=== PATIENT | male | born 1930 | race Caucasian/White ===

== ENCOUNTER 2016-12-07 16:10 | Inpatient (IN) | payer MEDICARE, OTHER ==
--- NOTE | 2016-12-07 17:56 | PCM.HP ---
[id number] Diagnosis/Problem Admission Diagnosis/Problem Pneumonia Source of Information: Patient, Family History Limitations: Reports: No limitations - History of Present Illness Initial Comments - Free Text/Narative: 85-year-old male with shortness of breath cough and generalized weakness for a period of 10 days, insidious onset, initially thought it would go away but symptoms got worse in the last 2 days. They included decreased appetite necessitating a clinic visit to PCP today. Chest x-ray done revealed bilateral pneumonia. Cough is productive of yellow-brown sputum. He also feels short of breath on ambulation but denies any chest pain, fever or chills. He has no nausea,vomiting or abdominal pain. Has a previous h/o of pneumonia, around and 2014. 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 Further,he has stable coronary disease, and a history of triple AAA repair. Denies Pain Score (Numeric/FACES): 0 - Related Data Allergies/Adverse Reactions: Allergies Allergy/AdvReac Type Severity Reaction Status Date / Time amoxicillin [Amoxicillin] Allergy Cannot Verified 10/24/13 11:14 Remember Home Medications: Home Meds ALPRAZolam [Xanax] 0.125 mg PO BEDTIME 10/24/13 [History] Budesonide/Formoterol [Symbicort 160-4.5 MCG] 2 inh IH BID 10/24/13 [History] Fexofenadine HCl [Sangeeta] 180 mg PO DAILY 10/24/13 [History] Flunisolide [Nasalide Nasal [place]] 2 spray KARLY DAILY PRN 10/24/13 [History] Levothyroxine 150 mcg PO DAILY 10/24/13 [History] Metoprolol Succinate [Toprol XL] 50 mg PO BIDMEALS PRN 10/24/13 [History] Mycophenolate Mofetil [Cellcept] 500 mg PO BID 10/24/13 [History] Omeprazole 20 mg PO DAILY 10/24/13 [History] Simvastatin [Zocor] 5 mg PO BEDTIME 10/24/13 [History] Terazosin [Hytrin] 10 mg PO BEDTIME 10/24/13 [History] Albuterol Sulfate [Proair Respiclick] 2 inh IH Q4HR PRN 02/02/15 [History] Ascorbate Calcium [Vitamin C] 500 mg PO DAILY 02/02/15 [History] Cholecalciferol (Vitamin D3) [Vitamin D3] 2,000 units PO DAILY 02/02/15 [History ] Diltiazem HCl [Diltiazem ER] 120 mg PO DAILY 02/02/15 [History] Furosemide [Lasix] 20 mg PO BID 02/02/15 [History] Krill Oil 500 mg PO DAILY 02/02/15 [History] L.acidoph,Paracasei, B.lactis [Probiotic] 1 each PO DAILY 02/02/15 [History] Lisinopril [Prinivil] 40 mg PO DAILY PRN 02/02/15 [History] Multivitamin [Multi-Vitamin Daily] 1 each PO DAILY 02/02/15 [History] Warfarin [Coumadin] 2.5 mg PO SUTUWETHFRSA 12/07/16 [History] Warfarin [Coumadin] 5 mg PO MO 12/07/16 [History] Past Medical History Cardiovascular History: Reports: Aneurysm, Bypass, CAD Respiratory History: Reports: COPD Other Respiratory History: hx of cancer of the lung Musculoskeletal History: Reports: Arthritis, Back pain, chronic Other Neuro History: history of myathenia gravis Social & Family History - Tobacco Use Smoking Status *Q: Never Smoker Years of Tobacco use: 40 Used Tobacco, but Quit: Yes Month Tobacco Last Used: 1991 Second Hand Smoke Exposure: No - Alcohol Use Days Per Week of Alcohol Use: 7 Number of Drinks Per Day: 1 Total Drinks Per Week: 7 - Recreational Drug Use Recreational Drug Use: No H&P Review of Systems - Review of Systems: Review Of Systems: ROS reveals no pertinent complaints other than HPI. Exam - Exam Exam: See Below - Vital Signs Weight: 67.268 kg - Exam General: alert, oriented, 4 HEENT: PERRLA, Hearing intact, Mucosa moist & pink, Nares patent, Normal nasal septum, Posterior pharynx clear, Conjunctiva clear, EOMI, EACs clear, TMs clear Neck: supple, trachea midline, 2 Lungs: Crackles, Rales Cardiovascular: regular rate, regular rhythm Abdomen: normal bowel sounds, soft (Male) Exam: Deferred Rectal (Males) Exam: Deferred Back Exam: normal inspection, full range of motion, NT Extremities: 3, normal inspection, 10 Skin: warm, dry, intact Neurological: cranial nerves intact, reflexes equal bilateral Neuro Extensive - Mental Status: alert, oriented x3, normal mood/affect, normal cognition Neuro Extensive - Motor, Sensory, Reflexes: CN II-XII intact, normal gait, normal reflexes Psychiatric: alert, normal affect, normal mood - Patient Data Result Diagrams: 12/08/16 06:10 12/08/16 06:10 Imaging Impressions last 24 hrs: I reviewed CXR at [facility]-shows bilateral infiltrates. *Q Meaningful Use (ADM) - VTE *Q VTE Criteria *Q: - Stroke *Q Stroke Criteria *Q: - AMI *Q AMI Criteria *Q: - Problem List (1) CAP (community acquired pneumonia) SNOMED Code(s): 525393941 ICD Code: J18.9 - PNEUMONIA, UNSPECIFIED ORGANISM Status: Acute Current Visit: Yes (2) Leukocytosis SNOMED Code(s): 292234508, 960440292 ICD Code: D72.829 - ELEVATED WHITE BLOOD CELL COUNT, UNSPECIFIED Status: Acute Current Visit: Yes Qualifiers: Leukocytosis type: unspecified Qualified Code(s): D72.829 - Elevated white blood cell count, unspecified (3) H/O aortic aneurysm repair SNOMED Code(s): 510280283 ICD Code: Z98.890 - OTHER SPECIFIED POSTPROCEDURAL STATES; Z86.79 - PERSONAL HISTORY OF OTHER DISEASES OF THE CIRCULATORY SYSTEM Status: Chronic Current Visit: Yes (4) HTN (hypertension) SNOMED Code(s): 69228821 ICD Code: I10 - ESSENTIAL (PRIMARY) HYPERTENSION Status: Chronic Current Visit: Yes Qualifiers: Hypertension type: essential hypertension Qualified Code(s): I10 - Essential (primary) hypertension (5) H/O TIA (transient ischemic attack) and stroke SNOMED Code(s): 057559539 ICD Code: Z86.73 - PRSNL HX OF TIA (TIA), AND CEREB INFRC W/O RESID DEFICITS Status: Chronic Current Visit: Yes (6) Ocular myasthenia SNOMED Code(s): 093626980 ICD Code: G70.00 - MYASTHENIA GRAVIS WITHOUT (ACUTE) EXACERBATION Status: Chronic Current Visit: Yes (7) COPD (chronic obstructive pulmonary disease) SNOMED Code(s): 49616619 ICD Code: J44.9 - CHRONIC OBSTRUCTIVE PULMONARY DISEASE, UNSPECIFIED Status : Acute Current Visit: Yes Qualifiers: COPD type: chronic bronchitis (8) Hypothyroid SNOMED Code(s): 04124907 ICD Code: E03.9 - HYPOTHYROIDISM, UNSPECIFIED Status: Chronic Current Visit: Yes Qualifiers: Hypothyroidism type: unspecified Qualified Code(s): E03.9 - Hypothyroidism , unspecified (9) CAD (coronary artery disease) SNOMED Code(s): 26864600 ICD Code: I25.10 - ATHSCL HEART DISEASE OF [place] CORONARY ARTERY W/O ANG PCTRS Status: Chronic Current Visit: Yes Qualifiers: [place] vs. transplanted heart: [place] heart (10) History of lobectomy of lung SNOMED Code(s): 849253002 ICD Code: Z90.2 - ACQUIRED ABSENCE OF LUNG [PART OF] Status: Chronic Current Visit: Yes Problem List Initiated/Reviewed/Updated: Yes Orders Last 24hrs: Active Orders 24 hr Category Date Time Status Admission Status [Patient Status] [ADT] Routine ADT 12/07/16 16:52 Active CULTURE BLOOD [BC] Routine Lab 12/07/16 17:00 Ordered CULTURE BLOOD [BC] Routine Lab 12/07/16 17:15 Ordered CULTURE ROUTINE + SMEAR [RM] Routine Lab 12/07/16 17:00 Uncollected Sodium Chloride 0.9% [Saline Flush] Med 12/07/16 16:18 Active 10 ml FLUSH ASDIRECTED PRN cefTRIAXone [Rocephin] 1 gm Med 12/07/16 18:00 Active Sodium Chloride 0.9% [Normal Saline] 50 ml IV ONETIME Saline Lock Insert [OM.PC] Routine Oth 12/07/16 16:18 Ordered Medication Orders Ceftriaxone Sodium 1 gm/ (Sodium Chloride) 50 mls @ 200 mls/hr IV ONETIME ONE Stop: 12/07/16 18:14 Sodium Chloride (Saline Flush) 10 ml FLUSH ASDIRECTED PRN PRN Reason: Keep Vein Open Assessment/Plan Comment:: Admit patient for IV antibiotics. We will start with Rocephin and azithromycin , and replace IV fluids as well. Given duo nebs as needed for shortness of breath. The rest of his home medications be continued as previously prescribed.
[2016-12-07] MEDS ORDERED: cefTRIAXone 1 GM in Sodium Chloride 0.9% 50 ML IV ONE (18:00)
[2016-12-07] MEDS ORDERED: Azithromycin 500 MG in Sodium Chloride 0.9% 250 ML IV SCH (18:00)
[2016-12-07] MEDS ORDERED: amLODIPine 10 MG Tab PO PRN (18:01)
[2016-12-07] MEDS: Lactated Ringers 1,000 ML IV SCH (19:40)
[2016-12-07] MEDS ORDERED: Azithromycin 500 MG AdvVial IV ONE (19:50)
[2016-12-07] MEDS ORDERED: ALPRAZolam 0.25 MG Tab PO SCH (21:00)
[2016-12-07] MEDS: Albuterol/Ipratropium 3.0-0.5 MG/3 ML Neb Soln NEB SCH (21:32)
[2016-12-07] MEDS ORDERED: ALPRAZolam 0.25 MG Tab ONE (21:41)
[2016-12-07] MEDS: Terazosin 5 MG Cap PO SCH (21:51)
[2016-12-07] MEDS: Aspirin/Dipyridamole 200-25 MG Cap.ER PO SCH (21:52)
[2016-12-07] MEDS: Budesonide/Formoterol 16-4.5 MCG/Puff 10.2 GM Inhaler INH SCH (21:52)
[2016-12-07] MEDS: ALPRAZolam 0.25 MG Tab PO SCH (22:00)
[2016-12-07] MEDS: Acetaminophen 325 MG Tab PO PRN (22:01)
[2016-12-07] MEDS ORDERED: Enoxaparin 30 MG/0.3 ML Syringe SUBCUT SCH (23:00)
[2016-12-08] MEDS: Albuterol/Ipratropium 3.0-0.5 MG/3 ML Neb Soln NEB SCH ×5 (03:25→20:51)
[2016-12-08] MEDS: Lactated Ringers 1,000 ML IV SCH (05:26)
[2016-12-08] MEDS ORDERED: amLODIPine 5 MG Tab PO PRN (07:35)
[2016-12-08] MEDS ORDERED: Enoxaparin 30 MG/0.3 ML Syringe SUBCUT SCH (08:00)
[2016-12-08] MEDS: Omeprazole 20 MG Cap.CR PO SCH (08:35)
[2016-12-08] MEDS: Levothyroxine 150 MCG Tab PO SCH (08:35)
[2016-12-08] MEDS: Metoprolol Succinate 50 MG Tab.ER PO SCH ×2 (08:37→17:30)
[2016-12-08] MEDS: Aspirin/Dipyridamole 200-25 MG Cap.ER PO SCH ×2 (08:38→20:50)
[2016-12-08] MEDS: Diltiazem 120 MG Cap.CD PO SCH (08:40)
[2016-12-08] MEDS: Lactobacillus Rhamnosus GG (Probiotic) Cap PO SCH (08:40)
[2016-12-08] MEDS: Clopidogrel 75 MG Tab PO SCH (08:41)
[2016-12-08] MEDS: Cholecalciferol (Vitamin D3) 1,000 Unit Tab PO SCH (08:42)
[2016-12-08] MEDS: Ascorbic Acid 500 MG Tab PO SCH (08:42)
[2016-12-08] MEDS: Multivitamin Tab PO SCH (08:42)
[2016-12-08] MEDS: Formoterol/Mometasone 200-5 MCG 8.8 GM Inhaler IH SCH ×2 (08:43→20:51)
[2016-12-08] MEDS: Budesonide/Formoterol 16-4.5 MCG/Puff 10.2 GM Inhaler INH SCH (08:45)
[2016-12-08] MEDS ORDERED: Non-Formulary Medication 1 Each (Krill Oil [Krill Oil] 500 MG) PO SCH (09:00)
[2016-12-08] MEDS: methylPREDNISolone Sodium Succinate 125 MG/2 ML SDV IVPUSH SCH ×2 (09:36→17:24)
--- NOTE | 2016-12-08 09:50 | PN ---
DATE SEEN: 12/08/2016 CHIEF COMPLAINT: Pneumonia. HISTORY OF PRESENT ILLNESS: This 85-year-old male, admitted for community- acquired pneumonia. Overnight, he still feels short of breath and wheezy. He has been using nebulized albuterol with improvement. He has had no more fever. He complains of decreased appetite but denies any chest pain. He has a history of hypertension, COPD, CAD previously stable. REVIEW OF SYSTEMS: All other systems unremarkable. ALLERGIES: Amoxicillin. PHYSICAL EXAMINATION: VITAL SIGNS: He is afebrile. Pulse is 116. Blood pressure is normal. Oxygenation 95%. EARS, NOSE, AND THROAT: Negative. NECK: No JVD. CARDIOVASCULAR: Regular rate and rhythm. EXTREMITIES: No edema. LUNGS: Crackles on the bases at left and right. LABORATORY DATA: White cell count is 12.8, hemoglobin 9.8. IMPRESSION: 1. Community-acquired pneumonia, mild normocytic anemia. 2. Stable hypertension. 3. History of chronic obstructive pulmonary disease with an exacerbation. 4. History of lobectomy of the lung. PLAN: Start Solu-Medrol 125 mg IV. Repeat CBC in the morning. Hep-Lock IV. Continue Rocephin and azithromycin. /[id number] GRACIA/KENROY
[2016-12-08] MEDS: MYCOPHENOLATE MOFETIL 500 MG PO SCH ×2 (13:15→20:53)
[2016-12-08] MEDS: Warfarin 2.5 MG Tab PO SCH (15:34)
[2016-12-08] MEDS: cefTRIAXone 1 GM in Sodium Chloride 0.9% 50 ML IV SCH (17:27)
[2016-12-08] MEDS: Sodium Chloride 0.9% 10 ML Syringe FLUSH PRN (19:42)
[2016-12-08] MEDS: Azithromycin 500 MG in Sodium Chloride 0.9% 250 ML IV SCH (19:44)
[2016-12-08] MEDS: Terazosin 5 MG Cap PO SCH (20:52)
[2016-12-08] MEDS: Simvastatin 10 MG Tab PO SCH (20:54)
[2016-12-08] MEDS: ALPRAZolam 0.25 MG Tab PO SCH (21:01)
[2016-12-08] MEDS: Acetaminophen 325 MG Tab PO PRN (21:07)
[2016-12-09] MEDS: Sodium Chloride 0.9% 10 ML Syringe FLUSH PRN ×4 (01:15→19:43)
[2016-12-09] MEDS: methylPREDNISolone Sodium Succinate 125 MG/2 ML SDV IVPUSH SCH ×3 (01:16→16:29)
[2016-12-09] MEDS: Albuterol/Ipratropium 3.0-0.5 MG/3 ML Neb Soln NEB PRN (01:20)
[2016-12-09] MEDS: Acetaminophen 325 MG Tab PO PRN ×2 (01:23→21:18)
[2016-12-09] MEDS: Albuterol/Ipratropium 3.0-0.5 MG/3 ML Neb Soln NEB SCH ×4 (06:15→21:16)
[2016-12-09] MEDS: Formoterol/Mometasone 200-5 MCG 8.8 GM Inhaler IH SCH ×2 (06:16→21:15)
[2016-12-09] MEDS: Levothyroxine 150 MCG Tab PO SCH (07:30)
[2016-12-09] MEDS: Metoprolol Succinate 50 MG Tab.ER PO SCH ×2 (07:30→17:39)
[2016-12-09] MEDS: Omeprazole 20 MG Cap.CR PO SCH (07:31)
[2016-12-09] MEDS: Aspirin/Dipyridamole 200-25 MG Cap.ER PO SCH ×2 (08:40→21:15)
[2016-12-09] MEDS: Diltiazem 120 MG Cap.CD PO SCH (08:51)
[2016-12-09] MEDS: MYCOPHENOLATE MOFETIL 500 MG PO SCH ×2 (08:51→21:16)
[2016-12-09] MEDS: Lactobacillus Rhamnosus GG (Probiotic) Cap PO SCH (08:51)
[2016-12-09] MEDS: Clopidogrel 75 MG Tab PO SCH (08:52)
[2016-12-09] MEDS: Multivitamin Tab PO SCH (08:53)
[2016-12-09] MEDS: Cholecalciferol (Vitamin D3) 1,000 Unit Tab PO SCH (08:53)
[2016-12-09] MEDS: Ascorbic Acid 500 MG Tab PO SCH (08:55)
[2016-12-09] MEDS ORDERED: Iopamidol 755 Mg/ML 100 ML Bottle IV ONE (09:55)
[2016-12-09] MEDS: Warfarin 2.5 MG Tab PO SCH (16:29)
[2016-12-09] MEDS: cefTRIAXone 1 GM in Sodium Chloride 0.9% 50 ML IV SCH (17:37)
[2016-12-09] MEDS: Azithromycin 500 MG in Sodium Chloride 0.9% 250 ML IV SCH (19:49)
[2016-12-09] MEDS: Terazosin 5 MG Cap PO SCH (21:16)
[2016-12-09] MEDS: Simvastatin 10 MG Tab PO SCH (21:17)
[2016-12-09] MEDS: ALPRAZolam 0.25 MG Tab PO PRN (21:17)
[2016-12-10] MEDS: methylPREDNISolone Sodium Succinate 125 MG/2 ML SDV IVPUSH SCH ×3 (00:52→16:55)
[2016-12-10] MEDS: Sodium Chloride 0.9% 10 ML Syringe FLUSH PRN ×2 (00:53→08:42)
[2016-12-10] MEDS: Acetaminophen 325 MG Tab PO PRN ×2 (01:28→19:41)
[2016-12-10] MEDS: Albuterol/Ipratropium 3.0-0.5 MG/3 ML Neb Soln NEB PRN (01:29)
[2016-12-10] MEDS ORDERED: ALPRAZolam 0.25 MG Tab PO ONE (02:55)
[2016-12-10] MEDS: ALPRAZolam 0.25 MG Tab PO PRN (03:02)
[2016-12-10] MEDS: Formoterol/Mometasone 200-5 MCG 8.8 GM Inhaler IH SCH ×3 (06:20→21:10)
[2016-12-10] MEDS: Albuterol/Ipratropium 3.0-0.5 MG/3 ML Neb Soln NEB SCH ×4 (06:20→21:10)
--- NOTE | 2016-12-10 07:25 | PN ---
DATE SEEN: 12/07/2016 REASON FOR VISIT: Pneumonia. HISTORY OF PRESENT ILLNESS: An 85-year-old male, who has been admitted for pneumonia. He complains of shortness of breath especially in the mornings, wheezing, and cough that is productive. He denies any pain. He also has been noted to have abdominal distention for which his is worried about. REVIEW OF SYSTEMS: No chest pain. No fever has been reported. No leg swelling. PAST MEDICAL HISTORY: COPD, CAD, AAA, hypertension, ocular myasthenia, history of TIAs. PHYSICAL EXAMINATION: VITAL SIGNS: Upon exam, his blood pressure today is 139/84, oxygenation 95% on room air, and pulse is 81. HEENT: Head, normal size. NECK: Supple. CHEST: Coarse crepitations bilaterally. CARDIOVASCULAR: Normal. EXTREMITIES: No edema. MENTAL STATUS: Alert. Mild anxiety was noted. LABORATORY DATA: This morning, white cell count is normal. Hemoglobin is 10.7. INR is 2.9. IMPRESSION: My final impression is: 1. Community-acquired pneumonia. 2. Chronic obstructive pulmonary disease exacerbation. 3. History of aortobifemoral bypass. 4. History of coronary artery disease. 5. History of transient ischemic attack. 6. Anemia, normocytic. PLAN: I will obtain a CT of the chest, abdomen, and pelvis. Continue with Solu- Medrol, SVNs, and antibiotics; also include that the patient can take some Xanax for anxiety as needed. /[id number] GRACIA/KENROY
[2016-12-10] MEDS: Omeprazole 20 MG Cap.CR PO SCH (08:27)
[2016-12-10] MEDS: Levothyroxine 150 MCG Tab PO SCH (08:27)
[2016-12-10] MEDS: Metoprolol Succinate 50 MG Tab.ER PO SCH ×2 (08:28→17:03)
[2016-12-10] MEDS: Aspirin/Dipyridamole 200-25 MG Cap.ER PO SCH ×2 (08:28→21:10)
[2016-12-10] MEDS: Diltiazem 120 MG Cap.CD PO SCH (08:29)
[2016-12-10] MEDS: MYCOPHENOLATE MOFETIL 500 MG PO SCH ×2 (08:30→21:11)
[2016-12-10] MEDS: Lactobacillus Rhamnosus GG (Probiotic) Cap PO SCH (08:30)
[2016-12-10] MEDS: Cholecalciferol (Vitamin D3) 1,000 Unit Tab PO SCH (08:31)
[2016-12-10] MEDS: Ascorbic Acid 500 MG Tab PO SCH (08:31)
[2016-12-10] MEDS: Multivitamin Tab PO SCH (08:31)
[2016-12-10] MEDS: Clopidogrel 75 MG Tab PO SCH (08:31)
--- NOTE | 2016-12-10 10:01 | PN ---
DATE SEEN: 12/10/2016 CHIEF COMPLAINT: Shortness of breath. HISTORY OF PRESENT ILLNESS: An 85-year-old male, who has pneumonia, severe COPD, and has been here for 3 days. He feels better this morning except shortness of breath on mild ambulation. CT of the chest that was done yesterday revealed possibility of nodules suggestive of malignancy in the lung on the right and possibly pulmonary edema also was noted. His legs have been noted to be swollen overnight. REVIEW OF SYSTEMS: No fever. No chest pain. No headaches. SOCIAL HISTORY: Does not smoke. Quit years ago. MEDICATIONS: Reviewed. ALLERGIES: Reviewed. PHYSICAL EXAMINATION: VITAL SIGNS: Blood pressure is 124/67 and pulse is 85. ENT: Negative. NECK: No JVD. CARDIOVASCULAR: Normal. RESPIRATORY: Rhonchi on both lung beyer. EXTREMITIES: 1 to 2+ peripheral edema. LABORATORY DATA: No labs were done today. INR was 5.04. FINAL IMPRESSION: 1. Community-acquired pneumonia. 2. Severe emphysema. 3. Lung nodule suggestive of malignancy. 4. Congestive heart failure. PLAN: 1. To add Spiriva HandiHaler. Continue with SVNs as needed. 2. I will continue Rocephin and azithromycin and Solu-Medrol. 3. Hold Coumadin. I did talk to him about why he is taking it but he is not sure entirely, it is possible because they thought he had a TIA in [place] years ago. He has also had an aortobifemoral graft but I am not certain if the Coumadin needs to be continued. My plan is also to see that he follows up with his PCP at the [facility] and possibly have a referral to Pulmonology for further workup of the nodules in the lungs which is suggestive of malignancy. /[id number] GRACIA/KENROY
[2016-12-10] MEDS: Furosemide 20 MG Tab PO SCH ×2 (10:45→13:52)
[2016-12-10] MEDS: Tiotropium Inhaler 18 MCG Inhalation Powder Cap Kit of 5 INH SCH (10:46)
[2016-12-10] MEDS ORDERED: Warfarin 5 MG Tab PO SCH (16:00)
[2016-12-10] MEDS: cefTRIAXone 1 GM in Sodium Chloride 0.9% 50 ML IV SCH (17:03)
[2016-12-10] MEDS ORDERED: Sodium Chloride 0.9% 250 ML IV SCH (17:15)
[2016-12-10] MEDS: Azithromycin 500 MG in Sodium Chloride 0.9% 250 ML IV SCH (19:42)
[2016-12-10] MEDS: Terazosin 5 MG Cap PO SCH (21:10)
[2016-12-10] MEDS: Simvastatin 10 MG Tab PO SCH (21:11)
[2016-12-11] MEDS: Sodium Chloride 0.9% 10 ML Syringe FLUSH PRN ×3 (01:10→19:56)
[2016-12-11] MEDS: methylPREDNISolone Sodium Succinate 125 MG/2 ML SDV IVPUSH SCH ×2 (01:10→08:16)
[2016-12-11] MEDS: Acetaminophen 325 MG Tab PO PRN ×2 (01:13→20:40)
[2016-12-11] MEDS: Albuterol/Ipratropium 3.0-0.5 MG/3 ML Neb Soln NEB PRN (04:49)
[2016-12-11] MEDS: Albuterol/Ipratropium 3.0-0.5 MG/3 ML Neb Soln NEB SCH ×4 (07:05→20:39)
[2016-12-11] MEDS: Formoterol/Mometasone 200-5 MCG 8.8 GM Inhaler IH SCH ×2 (08:04→20:39)
[2016-12-11] MEDS: Levothyroxine 150 MCG Tab PO SCH (08:05)
[2016-12-11] MEDS: Furosemide 20 MG Tab PO SCH ×2 (08:05→14:02)
[2016-12-11] MEDS: Omeprazole 20 MG Cap.CR PO SCH (08:05)
[2016-12-11] MEDS: Metoprolol Succinate 50 MG Tab.ER PO SCH ×2 (08:06→19:06)
[2016-12-11] MEDS: Aspirin/Dipyridamole 200-25 MG Cap.ER PO SCH ×2 (08:07→20:39)
[2016-12-11] MEDS: Lactobacillus Rhamnosus GG (Probiotic) Cap PO SCH (08:09)
[2016-12-11] MEDS: Diltiazem 120 MG Cap.CD PO SCH (08:09)
[2016-12-11] MEDS: MYCOPHENOLATE MOFETIL 500 MG PO SCH ×2 (08:10→20:40)
[2016-12-11] MEDS: Tiotropium Inhaler 18 MCG Inhalation Powder Cap Kit of 5 INH SCH (08:12)
[2016-12-11] MEDS: Multivitamin Tab PO SCH (08:14)
[2016-12-11] MEDS: Ascorbic Acid 500 MG Tab PO SCH (08:15)
[2016-12-11] MEDS: Cholecalciferol (Vitamin D3) 1,000 Unit Tab PO SCH (08:42)
--- NOTE | 2016-12-11 11:04 | PN ---
DATE SEEN: 12/11/2016 CHIEF COMPLAINT: Cough. HISTORY OF PRESENT ILLNESS: This is an 85-year-old male, admitted for pneumonia, which has improved; COPD, that is end-stage; and CHF, for which he has now improved on Lasix. He had put out 875 of urine here last night. He still has some wheezing, but otherwise, no chest pain. His leg swelling has improved. SOCIAL HISTORY: Quit smoking years ago. REVIEW OF SYSTEMS: No fever or headache. MEDICATIONS: Reviewed. PHYSICAL EXAMINATION: GENERAL: He is not in distress. VITAL SIGNS: Oxygenation 94% on room air. Blood pressure is normal. He is afebrile. EARS, NOSE, and THROAT: Negative. NECK: Supple. CHEST: wheezing and diminished breath sounds. EXTREMITIES: 1 to 2+ peripheral edema. LABORATORY DATA: None except INR was 6.6. IMPRESSION: 1. Community-acquired pneumonia. 2. Chronic obstructive pulmonary disease. 3. Congestive heart failure. 4. High INR. 5. History of malignancy, possible recurrence. PLAN: 1. Change Solu-Medrol to oral prednisone. 2. Discontinue azithromycin and Plavix. 3. Discontinue Coumadin. 4. Possible discharge tomorrow. /[id number] GRACIA/KENROY
[2016-12-11] MEDS: cefTRIAXone 1 GM in Sodium Chloride 0.9% 50 ML IV SCH (19:04)
[2016-12-11] MEDS: predniSONE 20 MG Tab PO SCH (19:06)
[2016-12-11] MEDS: Terazosin 5 MG Cap PO SCH (20:39)
[2016-12-11] MEDS: Simvastatin 10 MG Tab PO SCH (20:40)
[2016-12-11] MEDS: ALPRAZolam 0.25 MG Tab PO PRN (20:41)
[2016-12-12] MEDS: Acetaminophen 325 MG Tab PO PRN (04:38)
[2016-12-12] MEDS: Albuterol/Ipratropium 3.0-0.5 MG/3 ML Neb Soln NEB PRN (04:38)
[2016-12-12] MEDS: Albuterol/Ipratropium 3.0-0.5 MG/3 ML Neb Soln NEB SCH ×2 (07:03→10:41)
[2016-12-12] MEDS: Furosemide 20 MG Tab PO SCH ×2 (08:25→13:35)
[2016-12-12] MEDS: Omeprazole 20 MG Cap.CR PO SCH (08:25)
[2016-12-12] MEDS: Metoprolol Succinate 50 MG Tab.ER PO SCH (08:25)
[2016-12-12] MEDS: Levothyroxine 150 MCG Tab PO SCH (08:25)
[2016-12-12] MEDS: Formoterol/Mometasone 200-5 MCG 8.8 GM Inhaler IH SCH (08:25)
[2016-12-12] MEDS: predniSONE 20 MG Tab PO SCH (08:25)
[2016-12-12] MEDS: Aspirin/Dipyridamole 200-25 MG Cap.ER PO SCH (08:26)
[2016-12-12] MEDS: Cholecalciferol (Vitamin D3) 1,000 Unit Tab PO SCH (08:26)
[2016-12-12] MEDS: Lactobacillus Rhamnosus GG (Probiotic) Cap PO SCH (08:26)
[2016-12-12] MEDS: MYCOPHENOLATE MOFETIL 500 MG PO SCH (08:26)
[2016-12-12] MEDS: Multivitamin Tab PO SCH (08:26)
[2016-12-12] MEDS: Tiotropium Inhaler 18 MCG Inhalation Powder Cap Kit of 5 INH SCH (08:26)
[2016-12-12] MEDS: Ascorbic Acid 500 MG Tab PO SCH (08:26)
--- NOTE | 2016-12-12 12:07 | PN ---
DATE SEEN: 12/12/2016 REASON FOR VISIT: Pneumonia. HISTORY OF PRESENT ILLNESS: This is an 86-year-old male, who has had pneumonia, COPD, CHF. He has improved, complains of minimal cough and shortness of breath on mild exertion. He would like to go home today. REVIEW OF SYSTEMS: No chest pain. No fever. Cough is improved. SOCIAL HISTORY: He lives at home with , sedentary lifestyle. MEDICATIONS: Reviewed. PHYSICAL EXAMINATION: GENERAL: Nontoxic in appearance. VITAL SIGNS: Afebrile and normotensive. ENT: Negative. MENTAL STATUS: Alert. EXTREMITIES: Mild to moderate edema. LABORATORY DATA: Lab studies this morning, INR is still 4.39, neutrophils 91%, hemoglobin 11.1. IMPRESSION: 1. Community-acquired pneumonia. 2. Severe emphysema. 3. Congestive heart failure. 4. History of atrial fibrillation. 5. Possible malignancy, right lung. PLAN: My plan is to discharge the patient home on antibiotics orally and I chose to go with Omnicef. I will also continue the Lasix at home. I discussed at length that I will also add Spiriva; however, I will hold off on any anticoagulation until his INR comes back down to below 1.5. I discussed that they might need to go on a new anticoagulation agent, e.g. Eliquis or Xarelto. I discussed this with and daughter at bedside, and we will discharge him home today. /[id number] GRACIA/KENROY
[2016-12-12 13:34] VITALS: BP 129/67
--- NOTE | 2016-12-13 02:01 | DISCH ---
DISCHARGE DATE: 12/12/2016 REASON FOR ADMISSION: Community-acquired pneumonia. DISCHARGE DIAGNOSES: 1. Community-acquired pneumonia. 2. Severe chronic obstructive pulmonary disease. 3. Congestive heart failure. 4. Atrial fibrillation. 5. History of possible malignancy on the right lung. 6. Hypertension. 7. Generalized anxiety. CONSULTATIONS: None. BRIEF HISTORY AND HOSPITAL COURSE: An 86-year-old male, who was admitted for cough, fever, decreased appetite, and diagnosis of pneumonia. He was started on Rocephin and azithromycin. He also has old COPD, which was treated with DuoNeb and Solu-Medrol. CT done two days later revealed possible malignancy of the right lung. He also had some pulmonary edema. Lasix was started and he did very well. I discontinued Coumadin because of high INR. His Coumadin was there because of persistent atrial fibrillation. On discharge, I discussed discontinuation of Coumadin possibly in favor of new anticoagulation agent Xarelto. I also started him on Spiriva in the hospital. DISCHARGE MEDICATIONS: Alprazolam 0.125 mg p.o. b.i.d. p.r.n., albuterol and ipratropium 3 mL nebulizer every 4 hours p.r.n., Lasix 20 mg b.i.d., levothyroxine 150 mg daily, metoprolol 50 mg b.i.d., mometasone and formoterol one puff inhaled b.i.d., one multivitamin a day, omeprazole 10 mg daily, Zocor 5 mg a day, terazosin 10 mg daily, Spiriva 1 inhalation daily, prednisone 10 mg b.i.d., and Xarelto 10 mg a day starting next week once he had an INR. FOLLOWUP: I made a referral to the [facility] in [facility]. I also asked him to see Dr. Oakley on Saturday for an INR check. I spent more than 35 minutes in discharge of the patient. /[id number] GRACIA/KENROY
== END 2016-12-12 13:50 | disposition home or self-care (01) | DRG 194 ==
LOC: FB.MS 16:47
PROVIDERS: ADMIT Family Medicine; ATTEND Family Medicine
DX: J18.9 Pneumonia, unspecified organism (principal); J44.1 Chronic obstructive pulmonary disease with (acute) exacerbation; C34.91 Malignant neoplasm of unspecified part of right bronchus or lung; I10 Essential (primary) hypertension; I25.10 Atherosclerotic heart disease of native coronary artery without angina pectoris; G70.00 Myasthenia gravis without (acute) exacerbation; M54.9 Dorsalgia, unspecified; G89.29 Other chronic pain; M19.90 Unspecified osteoarthritis, unspecified site; Z90.2 Acquired absence of lung [part of]; Z85.118 Personal history of other malignant neoplasm of bronchus and lung; Z95.1 Presence of aortocoronary bypass graft; Z87.891 Personal history of nicotine dependence; Z86.73 Personal history of transient ischemic attack (TIA), and cerebral infarction without residual deficits; Z88.1 Allergy status to other antibiotic agents; Z79.01 Long term (current) use of anticoagulants; Z79.52 Long term (current) use of systemic steroids; E03.9 Hypothyroidism, unspecified; G70.89 Other specified myoneural disorders; D64.9 Anemia, unspecified; I50.9 Heart failure, unspecified; F41.9 Anxiety disorder, unspecified; R91.8 Other nonspecific abnormal finding of lung field
CPT/HCPCS: 36415; 71260; 74177; 80048; 80053; 83880; 84443; 85025; 85610; 87040; 94150; 94640-76; A9270-GY; J0456; J0696; J1650; J2930; J7050; J7120; J7620; Q9967

== ENCOUNTER 2017-04-11 14:37 | Inpatient (IN) | payer MEDICARE, OTHER ==
[2017-04-11] MEDS ORDERED: Ondansetron 4 MG Tab.DIS PO PRN (15:09)
[2017-04-11] MEDS: Sodium Chloride 0.9% 10 ML Syringe FLUSH PRN ×4 (16:09→21:57)
[2017-04-11] MEDS: Levofloxacin/Dextrose 5%-Water 500 MG in Premix Bag 1 BAG IV SCH (17:20)
[2017-04-11] MEDS ORDERED: Sodium Chloride 0.9% 250 ML IV PRN (17:45)
[2017-04-11] MEDS ORDERED: ALPRAZolam 0.25 MG Tab PO PRN (17:59)
[2017-04-11] MEDS ORDERED: Metoprolol Succinate 50 MG Tab.ER PO PRN (17:59)
[2017-04-11] MEDS ORDERED: Acetaminophen 325 MG Tab PO PRN (17:59)
[2017-04-11] MEDS ORDERED: Furosemide 40 MG/4 ML VIAL IVPUSH ONE (18:04)
[2017-04-11] MEDS ORDERED: Nitroglycerin 0.1 MG/HR Transdermal Patch TRDERM ONE (18:07)
[2017-04-11] MEDS: predniSONE 20 MG Tab PO SCH (19:41)
[2017-04-11] MEDS ORDERED: Simvastatin 10 MG Tab ONE (20:50)
[2017-04-11] MEDS: Terazosin 5 MG Cap PO SCH (20:55)
[2017-04-11] MEDS ORDERED: Formoterol/Mometasone 200-5 MCG 8.8 GM Inhaler IH SCH (21:00)
[2017-04-11] MEDS: ALPRAZolam 0.25 MG Tab PO SCH (21:00)
[2017-04-11] MEDS ORDERED: Digoxin 500 MCG/2 ML Amp IVPUSH ONE (21:13)
--- NOTE | 2017-04-11 23:36 | HP ---
ADMISSION DATE: 04/11/2017 History is from the patient, his [place] chart, and his old record. The patient is a fairly poor historian. CHIEF COMPLAINT: Increasing respiratory difficulty. HISTORY OF PRESENT ILLNESS: Mr. Rowan is an 86-year-old man from [place], [place], with a history of invasive lung cancer. The patient was hospitalized for pneumonia back in February of 2017. A followup chest CT showed multiple lesions in the right lung and a subsequent biopsy documented squamous-cell cancer. He has now been treated with by Dr. 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 The patient states that approximately 10 days ago, he began to feel weaker with more respiratory difficulty, it increased doubly until yesterday when he felt extremely short of breath. He was unable to walk or even move much without significant dyspnea. He made the point when he came into the clinic today where he was seen by Dr. Gabriel and was sent over to [place] for admission. The patient denies fever, chills. He denies cough or chest pain. He denies palpitations, nausea, or vomiting. He does report poor appetite and poor oral intake. No diarrhea, constipation. He does report chronic swelling. PAST MEDICAL HISTORY: Lung cancer nodules as mentioned found in February of this year. 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 He has had a myocardial infarction without surgical intervention in the past. He has chronic COPD, hypothyroidism, chronic essential hypertension, history of CVA without sequelae, chronic atrial fibrillation on anticoagulation with TIA, osteoarthritis, macular degeneration, history of gout. he has a history of prostate cancer. PAST SURGICAL HISTORY: He is status post left upper lobectomy in 2001, lung biopsy in 2016, and femoral aneurysm repair in 2006, cataract surgery 2011, and abdominal aortic aneurysm repair in 2006, left inguinal herniorrhaphy in 2014, right inguinal herniorrhaphy and cholecystectomy. MEDICATIONS: 1. Gemcitabine chemotherapy as mentioned. 2. [place]-3 Krill oil capsules one daily. 3. Symbicort two puffs b.i.d. 4. Flonase 2 squirts each naris daily. 5. Vitamin D3 2000 units daily. 6. Sangeeta 180 daily. 7. Hytrin 10 mg daily. 8. Multiple vitamin 1 daily. 9. Probiotics one daily. 10.Zocor 5 mg daily. 11.Omeprazole 20 mg daily. 12.Torsemide 100 mg tablets, 50 mg every other day. 13.Albuterol inhaler two puffs every 4 hours p.r.n. 14.Levothyroxine 150 mcg daily. 15.Metoprolol 50 mg daily p.r.n. tachycardia. 16.CellCept 500 mg b.i.d. 17.DuoNebs 3 puffs t.i.d. 18.Warfarin 2.5 to 5 mg daily adjusted by Anticoagulation Clinic. 19.Alprazolam 0.25 mg at bedtime. 20.Compazine 10 mg every 4 hours p.r.n. nausea. 21.Allopurinol 100 mg daily. 22.Indomethacin 25 mg daily p.r.n. ALLERGIES: Amoxicillin, dust, mites, and pollen. HABITS: Sixty plus pack year history of smoking, none since 1992, one glass of red wine per day. Two mugs of coffee per day. FAMILY AND SOCIAL HISTORY: The patient's father at age 59 of cancer of liver. Mother at age 59 of cancer of liver. Father at age 65 of congestive heart failure. One brother has blood cancer. SOCIAL HISTORY: The patient has been for 66 years. He has two daughters and one son. 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 He lives at home in [place] with his . REVIEW OF SYSTEMS: No seizures or syncope. He has lost weight. SKIN: Negative for rash. HEENT: No recent changes in hearing or vision. He does have a declining vision from macular degeneration. No sore throat or URI. He denies cough, chest pain, or palpitations. No nausea, vomiting, diarrhea, constipation, hematochezia, or melena. No hematuria or UTI symptoms. No joint inflammation, swelling, or skin rash. No mood instability or temperature intolerance. PHYSICAL EXAMINATION: GENERAL: He is alert, comfortable, but a somewhat poor historian. VITAL SIGNS: Blood pressure 142/74, pulse 114 and irregular, respirations 20, temp 98.2, weight 156 pounds. This is down 9 pounds in the past 4 months. O2 saturations 93% on 2 L nasal cannula. SKIN: Anicteric, warm and dry without rash. HEENT: Show clear TMs. Pupils are equal and reactive. Oropharynx clear. Mouth dry. NECK: Supple. LUNGS: Good air movement to both bases. No focal consolidation is heard today. HEART: Irregular, rapid, and no murmur or gallop. ABDOMEN: Normal bowel sounds. Soft and nontender. No masses. No organomegaly. EXTREMITIES: Warm and well perfused. He does have 1+ pitting edema to the lower tibias to just above the ankles rather bilaterally. Pedal pulses are palpable bilaterally. NEUROLOGIC: He is a somewhat poor historian, but motor exam appears symmetric. Station and gait are not tested. LABORATORY DATA: White count 19,100, hemoglobin 10.7, 94 segs, 1 band, 2 lymphocytes, 3 monos. INR 2.69. Electrolytes normal. Creatinine 1.3, troponin 0.56. Urinalysis shows moderate hematuria. Chest x-ray shows cardiomegaly and fibrinous lymphangitic appearing heavy markings, possible lymphangitic spread of malignancy versus bacterial infection, bacterial pneumonia. EKG shows atrial fibrillation at 150 beats per minute with ST-segment depression in the lateral leads. ASSESSMENT: 1. An 86-year-old man with lung cancer, now with increasing respiratory distress and infiltrate with elevated white count consistent with pneumonia. 2. Lung cancer, possibly infiltrative. 3. Coronary artery disease with chronic atrial fibrillation, now with a rapid ventricular response and elevated troponin. This may be a demand myocardial infarction. 4. Remote history of left lung cancer. 5. History of prostate cancer. 6. History of myocardial infarction. 7. Chronic hypothyroidism. 8. Osteoarthritis. PLAN: He is admitted to acute care on telemetry. We will treat him with IV antibiotics. Diurese him slightly and resume his beta claudia for rate control. Repeat troponin and EKG in the a.m. as well as labs. This patient will require an estimated 3 to 4 days or more of acute hospitalization and will also continue palliative cares for his underlying heart and lung disease, as well as lung cancer with followup in consultation with Dr. Palmer. /[id number] ELIO/KENROY
[2017-04-12] MEDS: hydrOXYzine HCl 25 MG Tab PO PRN (00:13)
[2017-04-12] MEDS: Albuterol/Ipratropium 3.0-0.5 MG/3 ML Neb Soln NEB PRN ×3 (05:11→20:14)
[2017-04-12] MEDS ORDERED: Formoterol/Mometasone 200-5 MCG 8.8 GM Inhaler IH SCH (07:29)
[2017-04-12] MEDS ORDERED: Torsemide 20 MG Tab PO SCH (08:00)
[2017-04-12] MEDS ORDERED: Furosemide 40 MG Tab PO SCH (08:00)
[2017-04-12] MEDS: Formoterol/Mometasone 200-5 MCG 8.8 GM Inhaler IH SCH ×2 (08:15→20:58)
[2017-04-12] MEDS ORDERED: Rivaroxaban 10 MG Tab PO SCH (09:00)
[2017-04-12] MEDS ORDERED: Tiotropium Inhaler 18 MCG Inhalation Powder Cap Kit of 5 INH SCH (09:00)
[2017-04-12] MEDS ORDERED: Warfarin Sliding Scale PO SCH (09:15)
[2017-04-12] MEDS: Metoprolol Tartrate 50 MG Tab PO SCH ×2 (09:39→20:55)
[2017-04-12] MEDS: Levothyroxine 150 MCG Tab PO SCH (09:39)
[2017-04-12] MEDS: Pantoprazole 40 MG Tab.CR PO SCH (09:39)
[2017-04-12] MEDS ORDERED: Iopamidol 755 Mg/ML 75 ML Bottle IV ONE (10:19)
[2017-04-12] MEDS: Tiotropium Inhaler 18 MCG Inhalation Powder Cap Kit of 5 INH SCH (10:43)
[2017-04-12] MEDS: Multivitamins, Therapeutic with Minerals Tab PO SCH (10:46)
[2017-04-12] MEDS: Cholecalciferol (Vitamin D3) 1,000 Unit Tab PO SCH (10:46)
--- NOTE | 2017-04-12 11:36 | PCM.PN ---
- General Info Date of Service: 04/12/17 Admission Dx/Problem (Free Text): Patient states he feels better. His breathing is three quarters better. He states when he gets up to walk so he still feels fatigued and short of breath. He denies coughing, fevers, chills. Had a little night sweat last night but that's improved. His leg swelling is better because the nurses wrapped his legs last night. - Patient Data Vitals - Most Recent: Last Vital Signs Temp 97.7 F 04/12/17 05:35 Pulse 135 H 04/12/17 09:39 Resp 18 04/12/17 05:35 BP 129/74 04/12/17 09:39 Pulse Ox 97 04/12/17 05:35 Weight - Most Recent: 154 lb 14.4 oz I&O - Last 24 Hours: Intake & Output 04/11/17 04/12/17 04/12/17 22:59 06:59 14:59 Intake Total 125 100 180 Output Total 220 425 Balance -95 -325 180 Lab Results Last 24 Hours: Laboratory Results - last 24 hr 04/11/17 04/11/17 04/11/17 Range/Units 15:20 15:20 15:20 WBC 19.1 H (4.5-12.0) X10-3/uL RBC 3.48 L (4.30-5.75) x10(6)uL Hgb 10.7 L (11.5-15.5) g/dL Hct 32.4 (30.0-51.3) % MCV 92.9 (80-96) fL MCH 30.8 (27.7-33.6) pg MCHC 33.1 (32.2-35.4) g/dL RDW 15.3 (11.5-15.5) % Plt Count 149 (125-369) X10(3)uL MPV 9.4 (7.4-10.4) fL Add Manual Diff Yes Neutrophils % (Manual) 94 H (46-82) % Band Neutrophils % 1 (0-6) % Lymphocytes % (Manual) 2 L (13-37) % Monocytes % (Manual) 3 L (4-12) % PT (8.7-11.1) INR (0.89-1.13) ABG pH (7.35-7.45) ABG pCO2 (35-45) mmHg ABG pO2 (83-108) mmHg ABG HCO3 (22-26) mmol/L ABG O2 Saturation (96-97) % ABG Base Excess (-2-2) Teo Test O2 Delivery Device Sodium 131 L (135-145) mmol/L Potassium 4.0 (3.5-5.3) mmol/L Chloride 96 L D (100-110) mmol/L Carbon Dioxide 24 (23-29) mmol/L BUN 30 H D (8-23) mg/dL Creatinine 1.3 (0.6-1.3) mg/dL Est Cr Clr Drug Dosing 40.56 mL/min Estimated GFR (MDRD) 52 L (>60) BUN/Creatinine Ratio 23.1 H (9-20) Glucose 122 H (80-116) mg/dL Calcium 8.5 L (8.6-10.2) mg/dL Total Bilirubin 1.0 (0.1-1.3) mg/dL AST 24 D (5-27) IU/L ALT 19 D (14-26) IU/L Alkaline Phosphatase 94 (56-112) IU/L Troponin I 0.56 H* (0.02-0.06) NG/ML Total Protein 7.0 (6.0-8.0) g/dL Albumin 3.2 (3.2-4.6) g/dL Globulin 3.8 g/dL Albumin/Globulin Ratio 0.8 Urine Color (YELLOW) Urine Appearance (CLEAR) Urine pH (5.0-6.5) Ur Specific [place] (1.010-1.025) Urine Protein (NEGATIVE) mg/dL Urine Glucose (UA) (NEGATIVE) mg/dL Urine Ketones (NEGATIVE) mg/dL Urine Occult Blood (NEGATIVE) Urine Nitrite (NEGATIVE) Urine Bilirubin (NEGATIVE) Urine Urobilinogen (NEGATIVE) mg/dL Ur Leukocyte Esterase (NEGATIVE) Urine RBC (0) Urine WBC (0) Ur Epithelial Cells Amorphous Sediment Urine Bacteria (NS) Urine Mucus (NS) 04/11/17 04/11/17 04/11/17 Range/Units 15:20 15:20 15:35 WBC (4.5-12.0) X10-3/uL RBC (4.30-5.75) x10(6)uL Hgb (11.5-15.5) g/dL Hct (30.0-51.3) % MCV (80-96) fL MCH (27.7-33.6) pg MCHC (32.2-35.4) g/dL RDW (11.5-15.5) % Plt Count (125-369) X10(3)uL MPV (7.4-10.4) fL Add Manual Diff Neutrophils % (Manual) (46-82) % Band Neutrophils % (0-6) % Lymphocytes % (Manual) (13-37) % Monocytes % (Manual) (4-12) % PT 27.7 H (8.7-11.1) INR 2.69 H (0.89-1.13) ABG pH 7.52 H (7.35-7.45) ABG pCO2 26 L (35-45) mmHg ABG pO2 105 (83-108) mmHg ABG HCO3 21 L (22-26) mmol/L ABG O2 Saturation 99 H (96-97) % ABG Base Excess -0.8 (-2-2) Teo Test Passed O2 Delivery Device Not Reportable Sodium (135-145) mmol/L Potassium (3.5-5.3) mmol/L Chloride (100-110) mmol/L Carbon Dioxide (23-29) mmol/L BUN (8-23) mg/dL Creatinine (0.6-1.3) mg/dL Est Cr Clr Drug Dosing mL/min Estimated GFR (MDRD) (>60) BUN/Creatinine Ratio (9-20) Glucose (80-116) mg/dL Calcium (8.6-10.2) mg/dL Total Bilirubin (0.1-1.3) mg/dL AST (5-27) IU/L ALT (14-26) IU/L Alkaline Phosphatase (56-112) IU/L Troponin I (0.02-0.06) NG/ML Total Protein (6.0-8.0) g/dL Albumin (3.2-4.6) g/dL Globulin g/dL Albumin/Globulin Ratio Urine Color Yellow (YELLOW) Urine Appearance Slightly cloudy (CLEAR) Urine pH 5.0 (5.0-6.5) Ur Specific [place] 1.010 (1.010-1.025) Urine Protein Negative (NEGATIVE) mg/dL Urine Glucose (UA) Normal (NEGATIVE) mg/dL Urine Ketones Negative (NEGATIVE) mg/dL Urine Occult Blood Moderate H (NEGATIVE) Urine Nitrite Negative (NEGATIVE) Urine Bilirubin Negative (NEGATIVE) Urine Urobilinogen Normal (NEGATIVE) mg/dL Ur Leukocyte Esterase Negative (NEGATIVE) Urine RBC 5-10 (0) Urine WBC 0-5 (0) Ur Epithelial Cells Few Amorphous Sediment Few Urine Bacteria Few H (NS) Urine Mucus Occasional H (NS) 04/12/17 04/12/17 04/12/17 Range/Units 05:55 05:55 05:55 WBC 14.4 H (4.5-12.0) X10-3/uL RBC 3.19 L (4.30-5.75) x10(6)uL Hgb 9.8 L (11.5-15.5) g/dL Hct 29.4 L (30.0-51.3) % MCV 92.3 (80-96) fL MCH 30.6 (27.7-33.6) pg MCHC 33.1 (32.2-35.4) g/dL RDW 14.9 (11.5-15.5) % Plt Count 145 (125-369) X10(3)uL MPV 10.0 (7.4-10.4) fL Add Manual Diff Yes Neutrophils % (Manual) 89 H (46-82) % Band Neutrophils % 1 (0-6) % Lymphocytes % (Manual) 5 L (13-37) % Monocytes % (Manual) 5 (4-12) % PT (8.7-11.1) INR (0.89-1.13) ABG pH (7.35-7.45) ABG pCO2 (35-45) mmHg ABG pO2 (83-108) mmHg ABG HCO3 (22-26) mmol/L ABG O2 Saturation (96-97) % ABG Base Excess (-2-2) Teo Test O2 Delivery Device Sodium 133 L (135-145) mmol/L Potassium 4.0 (3.5-5.3) mmol/L Chloride 98 L (100-110) mmol/L Carbon Dioxide 24 (23-29) mmol/L BUN 28 H (8-23) mg/dL Creatinine 1.2 (0.6-1.3) mg/dL Est Cr Clr Drug Dosing 42.29 mL/min Estimated GFR (MDRD) 57 L (>60) BUN/Creatinine Ratio 23.3 H (9-20) Glucose 133 H (80-116) mg/dL Calcium 8.2 L (8.6-10.2) mg/dL Total Bilirubin 0.8 (0.1-1.3) mg/dL AST 21 D (5-27) IU/L ALT 15 D (14-26) IU/L Alkaline Phosphatase 82 (56-112) IU/L Troponin I 0.98 H* (0.02-0.06) NG/ML Total Protein 6.3 (6.0-8.0) g/dL Albumin 2.7 L (3.2-4.6) g/dL Globulin 3.6 g/dL Albumin/Globulin Ratio 0.8 Urine Color (YELLOW) Urine Appearance (CLEAR) Urine pH (5.0-6.5) Ur Specific [place] (1.010-1.025) Urine Protein (NEGATIVE) mg/dL Urine Glucose (UA) (NEGATIVE) mg/dL Urine Ketones (NEGATIVE) mg/dL Urine Occult Blood (NEGATIVE) Urine Nitrite (NEGATIVE) Urine Bilirubin (NEGATIVE) Urine Urobilinogen (NEGATIVE) mg/dL Ur Leukocyte Esterase (NEGATIVE) Urine RBC (0) Urine WBC (0) Ur Epithelial Cells Amorphous Sediment Urine Bacteria (NS) Urine Mucus (NS) Med Orders - Current: Current Medications Acetaminophen (Tylenol) 650 mg PO Q4H PRN PRN Reason: PAIN / FEVER Albuterol (Ventolin Hfa) 0 gm INH Q4H PRN PRN Reason: Dyspnea Albuterol/Ipratropium (Duoneb 3.0-0.5 Mg/3 Ml) 3 ml NEB Q4H PRN PRN Reason: Wheezing Last Admin: 04/12/17 11:12 Dose: 3 ml Alprazolam (Xanax) 0.125 mg PO BID PRN PRN Reason: Anxiety Alprazolam (Xanax) 0.125 mg PO BEDTIME [facility] Last Admin: 04/11/17 21:00 Dose: 0.125 mg Cholecalciferol (Vitamin D3) 2,000 units PO DAILY [facility] Last Admin: 04/12/17 10:46 Dose: 2,000 units Fexofenadine HCl (Sangeeta) 180 mg PO DAILY [facility] Last Admin: 04/12/17 10:46 Dose: 180 mg Hydroxyzine HCl (Atarax) 25 mg PO BEDTIME PRN PRN Reason: Insomnia Last Admin: 04/12/17 00:13 Dose: 25 mg Levofloxacin/Dextrose 500 mg/ (Premix) 100 mls @ 100 mls/hr IV Q24H [facility] Last Admin: 04/11/17 17:20 Dose: 100 mls/hr Sodium Chloride (Normal Saline) 250 mls @ 0 mls/hr IV ASDIRECTED PRN; KVO PRN Reason: USE WITH ANTIBIOTIC Levothyroxine Sodium (Levothyroxine) 150 mcg PO 0600 [facility] Last Admin: 04/12/17 09:39 Dose: 150 mcg Metoprolol Tartrate (Lopressor) 50 mg PO BID [facility] Last Admin: 04/12/17 09:39 Dose: 50 mg Mometasone Furoate/Formoterol Fumar (Dulera 200-5 Mcg) 0 puff IH BID [facility] Last Admin: 04/12/17 08:15 Dose: 2 puff Multivitamins/Minerals (Vitamins And Minerals) 1 tab PO DAILY [facility] Last Admin: 04/12/17 10:46 Dose: 1 tab Mycophenolate Mofetil [Cellcept] 500mg 500 mg PO BID [facility] Ondansetron HCl (Zofran Odt) 4 mg PO Q4H PRN PRN Reason: nausea, able to take PO Pantoprazole Sodium (Protonix) 40 mg PO 0600 [facility] Last Admin: 04/12/17 09:39 Dose: 40 mg Simvastatin (Zocor) 5 mg PO BEDTIME [facility] Last Admin: 04/11/17 21:00 Dose: 5 mg Sodium Chloride (Saline Flush) 10 ml FLUSH ASDIRECTED PRN PRN Reason: Keep Vein Open Last Admin: 04/11/17 21:57 Dose: 10 ml Terazosin HCl (Hytrin) 10 mg PO BEDTIME [facility] Last Admin: 04/11/17 20:55 Dose: 10 mg Tiotropium [place] (Spiriva Handihaler) 0 mcg INH DAILY [facility] Last Admin: 04/12/17 10:43 Dose: 1 inh Torsemide (Demadex) 20 mg PO Q48H [facility] Warfarin Sodium (Coumadin Sliding Scale) 1 each PO ASDIRECTED [facility] Warfarin Sodium (Coumadin) 4 mg PO ONETIME ONE Stop: 04/12/17 16:01 Discontinued Medications Digoxin (Lanoxin) 125 mcg IVPUSH ONETIME ONE Stop: 04/11/17 21:14 Last Admin: 04/11/17 21:46 Dose: 125 mcg Furosemide (Lasix) 40 mg IVPUSH NOW ONE Stop: 04/11/17 18:05 Last Admin: 04/11/17 19:41 Dose: 40 mg Furosemide (Lasix) 40 mg PO BIDDIURETIC [facility] Iopamidol (Isovue-370 (76%)) 75 ml IV ONETIME ONE Stop: 04/12/17 10:20 Last Admin: 04/12/17 11:03 Dose: 59 ml Mometasone Furoate/Formoterol Fumar (Dulera 200-5 Mcg) 2 puff IH BID [facility] Last Admin: 04/11/17 20:55 Dose: 2 puff Mometasone Furoate/Formoterol Fumar (Dulera 200-5 Mcg) 0 puff IH BID [facility] Nitroglycerin (Nitro-Dur 0.1 Mg/Hr) 0.1 mg TRDERM ONETIME ONE Stop: 04/11/17 18:08 Last Admin: 04/11/17 19:39 Dose: 0.1 mg Prednisone (Prednisone) 20 mg PO BIDMEALS [facility] Last Admin: 04/11/17 19:41 Dose: 20 mg Rivaroxaban (Xarelto) 20 mg PO DAILY [facility] Simvastatin (Zocor) Confirm Administered Dose 10 mg .ROUTE .STK-MED ONE Stop: 04/11/17 20:51 Last Admin: 04/11/17 20:54 Dose: Not Given - Exam General: Alert, Oriented, Severe Distress Neck: Supple Lungs: Decreased Breath Sounds, Wheezing (Faint bilateral bases) Cardiovascular: No Murmurs, Irregular Rhythm, Tachycardia Back Exam: Normal Inspection Extremities: Pedal Edema (+1 bilateral lower extremity) Skin: Warm, Dry, Intact Psy/Mental Status: Alert, Normal Affect, Normal Mood - Problem List & Annotations (1) Rapid atrial fibrillation SNOMED Code(s): 232112352 Code(s): I48.91 - UNSPECIFIED ATRIAL FIBRILLATION Status: Acute Current Visit: Yes (2) Palliative care status SNOMED Code(s): 815123361 Code(s): Z51.5 - ENCOUNTER FOR PALLIATIVE CARE Status: Acute Current Visit: Yes (3) CAP (community acquired pneumonia) SNOMED Code(s): 469648128 Code(s): J18.9 - PNEUMONIA, UNSPECIFIED ORGANISM Status: Acute Current Visit: No (4) COPD (chronic obstructive pulmonary disease) SNOMED Code(s): 69008548 Code(s): J44.9 - CHRONIC OBSTRUCTIVE PULMONARY DISEASE, UNSPECIFIED Status : Acute Current Visit: No - Problem List Review Problem List Initiated/Reviewed/Updated: Yes - My Orders Last 24 Hours: My Active Orders 04/11/17 15:09 Patient Status [ADT] Routine Ambulate [RC] ASDIRECTED May Shower [RC] ASDIRECTED Oxygen Therapy [RC] PRN Up With Assistance [RC] ASDIRECTED VTE/DVT Education [RC] Per Unit Routine Vital Signs [RC] 00,04,08,12,16,20 Chest 2V [CR] Stat CULTURE SPUTUM + SMEAR [RM] Stat Ondansetron [Zofran ODT] 4 mg PO Q4H PRN Sodium Chloride 0.9% [Saline Flush] 10 ml FLUSH ASDIRECTED PRN Blood Culture x2 Reflex Set [OM.PC] Urgent Peripheral IV Insertion Adult [OM.PC] Routine Resuscitation Status Routine 04/11/17 15:10 Cardiac Monitoring [RC] 08,16,00 Sequential Compression Device [OM.PC] Per Unit Routine 04/11/17 15:20 CULTURE BLOOD [BC] Urgent 04/11/17 15:30 CULTURE BLOOD [BC] Urgent 04/11/17 16:00 Levofloxacin/Dextrose 5%-Water [Levaquin in D5W 500 MG/100 ML] 500 mg Premix Bag 1 bag IV Q24H 04/11/17 Dinner Regular Diet [DIET] 04/12/17 07:15 EKG Documentation Completion [RC] ASDIRECTED EKG 12 Lead [EK] Stat 04/12/17 08:00 Torsemide [Demadex] 20 mg PO Q48H 04/12/17 08:58 Albuterol [Ventolin HFA] 0 gm INH Q4H PRN 04/12/17 09:00 Cholecalciferol (Vitamin D3) [Vitamin D3] 2,000 units PO DAILY Fexofenadine [Sangeeta] 180 mg PO DAILY Metoprolol Tartrate [Lopressor] 50 mg PO BID Multivitamins/Minerals [Vitamins and Minerals] 1 tab PO DAILY 04/12/17 09:15 Warfarin Sliding Scale [Coumadin Sliding Scale] 1 each PO ASDIRECTED 04/12/17 09:53 Chest w wo Cont [CT] Routine 04/12/17 16:00 TROPONIN I [CHEM] Routine Warfarin [Coumadin] 4 mg PO ONETIME ONE 04/13/17 05:11 BASIC METABOLIC PANEL,BMP [CHEM] AM 04/13/17 06:00 CBC WITH AUTO DIFF [HEME] Routine 04/13/17 08:00 INR,PT,PROTHROMBIN TIME [COAG] Routine - Plan Plan:: 1. Chest x-ray is questionable so I will proceed with a CT of the chest today. 2. Continue IV antibiotics and prednisone 20 mg twice a day by mouth 3. Patient takes his metoprolol when necessary at home. I started twice a day dosing. Held his diuretics for now. 4. Continue O2 to keep sats greater 90%. 5. Discussed with him and his about the patient's condition. His troponins bumped a little bit. This may just be from strain from the tachycardia. Hopefully this will go down and I will repeat it today at 4:00 again.
[2017-04-12] MEDS: predniSONE 20 MG Tab PO SCH (12:26)
[2017-04-12] MEDS ORDERED: Warfarin 4 MG Tab PO ONE (16:00)
[2017-04-12] MEDS: Levofloxacin/Dextrose 5%-Water 500 MG in Premix Bag 1 BAG IV SCH (16:03)
[2017-04-12] MEDS: MYCOPHENOLATE MOFETIL 250 MG PO SCH ×3 (20:57→22:04)
[2017-04-12] MEDS: Terazosin 5 MG Cap PO SCH (20:59)
[2017-04-12] MEDS: Simvastatin 10 MG Tab PO SCH (21:00)
[2017-04-12] MEDS: ALPRAZolam 0.25 MG Tab PO SCH (21:04)
[2017-04-13] MEDS: Albuterol 8 GM Inhaler INH PRN ×2 (02:56→06:41)
[2017-04-13] MEDS: hydrOXYzine HCl 25 MG Tab PO PRN (02:56)
[2017-04-13] MEDS: Levothyroxine 150 MCG Tab PO SCH (06:07)
[2017-04-13] MEDS: Pantoprazole 40 MG Tab.CR PO SCH (06:07)
[2017-04-13] MEDS: Albuterol/Ipratropium 3.0-0.5 MG/3 ML Neb Soln NEB PRN ×2 (08:30→20:48)
[2017-04-13] MEDS: Formoterol/Mometasone 200-5 MCG 8.8 GM Inhaler IH SCH ×2 (09:34→20:50)
[2017-04-13] MEDS: Metoprolol Tartrate 50 MG Tab PO SCH ×2 (09:34→20:51)
[2017-04-13] MEDS: MYCOPHENOLATE MOFETIL 250 MG PO SCH ×2 (09:35→20:51)
[2017-04-13] MEDS: Cholecalciferol (Vitamin D3) 1,000 Unit Tab PO SCH (09:35)
[2017-04-13] MEDS: Multivitamins, Therapeutic with Minerals Tab PO SCH (09:35)
[2017-04-13] MEDS: Tiotropium Inhaler 18 MCG Inhalation Powder Cap Kit of 5 INH SCH (09:35)
--- NOTE | 2017-04-13 09:57 | PCM.PN ---
- General Info Date of Service: 04/13/17 Admission Dx/Problem (Free Text): Patient states he is breathing a little bit better today. He has a cough today. He still short of breath but is able to walk a little farther. Denies chest pain , palpitations. He says he does have some leg swelling again. - Patient Data Vitals - Most Recent: Last Vital Signs Temp 97.8 F 04/13/17 08:30 Pulse 76 04/13/17 09:34 Resp 20 04/13/17 08:30 BP 165/68 H 04/13/17 09:34 Pulse Ox 95 04/13/17 08:35 Weight - Most Recent: 157 lb 14.4 oz I&O - Last 24 Hours: Intake & Output 04/12/17 04/13/17 04/13/17 22:59 06:59 14:59 Intake Total 400 Output Total 350 Balance 50 Lab Results Last 24 Hours: Laboratory Results - last 24 hr 04/12/17 04/13/17 04/13/17 Range/Units 16:00 06:20 06:20 WBC 12.9 H (4.5-12.0) X10-3/uL RBC 3.10 L (4.30-5.75) x10(6)uL Hgb 9.3 L (11.5-15.5) g/dL Hct 28.4 L (30.0-51.3) % MCV 91.7 (80-96) fL MCH 30.1 (27.7-33.6) pg MCHC 32.8 (32.2-35.4) g/dL RDW 15.6 H (11.5-15.5) % Plt Count 169 (125-369) X10(3)uL MPV 9.3 (7.4-10.4) fL Add Manual Diff Yes Neutrophils % (Manual) 79 (46-82) % Band Neutrophils % 2 (0-6) % Lymphocytes % (Manual) 8 L (13-37) % Monocytes % (Manual) 9 (4-12) % Eosinophils % (Manual) 1 (0-5) % Metamyelocytes % 1 H (0-0) % Poikilocytosis Few PT (8.7-11.1) INR (0.89-1.13) Sodium 132 L (135-145) mmol/L Potassium 3.7 (3.5-5.3) mmol/L Chloride 98 L (100-110) mmol/L Carbon Dioxide 26 (23-29) mmol/L BUN 30 H (8-23) mg/dL Creatinine 1.2 (0.6-1.3) mg/dL Est Cr Clr Drug Dosing 42.55 mL/min Estimated GFR (MDRD) 57 L (>60) BUN/Creatinine Ratio 25.0 H (9-20) Glucose 104 (80-116) mg/dL Calcium 8.2 L (8.6-10.2) mg/dL Total Bilirubin 0.5 (0.1-1.3) mg/dL AST 21 (5-27) IU/L ALT 17 D (14-26) IU/L Alkaline Phosphatase 90 (56-112) IU/L Troponin I 0.92 H* (0.02-0.06) NG/ML Total Protein 5.8 L (6.0-8.0) g/dL Albumin 2.4 L (3.2-4.6) g/dL Globulin 3.4 g/dL Albumin/Globulin Ratio 0.7 04/13/17 04/13/17 Range/Units 06:20 06:20 WBC (4.5-12.0) X10-3/uL RBC (4.30-5.75) x10(6)uL Hgb (11.5-15.5) g/dL Hct (30.0-51.3) % MCV (80-96) fL MCH (27.7-33.6) pg MCHC (32.2-35.4) g/dL RDW (11.5-15.5) % Plt Count (125-369) X10(3)uL MPV (7.4-10.4) fL Add Manual Diff Neutrophils % (Manual) (46-82) % Band Neutrophils % (0-6) % Lymphocytes % (Manual) (13-37) % Monocytes % (Manual) (4-12) % Eosinophils % (Manual) (0-5) % Metamyelocytes % (0-0) % Poikilocytosis PT 30.1 H (8.7-11.1) INR 2.92 H (0.89-1.13) Sodium (135-145) mmol/L Potassium (3.5-5.3) mmol/L Chloride (100-110) mmol/L Carbon Dioxide (23-29) mmol/L BUN (8-23) mg/dL Creatinine (0.6-1.3) mg/dL Est Cr Clr Drug Dosing mL/min Estimated GFR (MDRD) (>60) BUN/Creatinine Ratio (9-20) Glucose (80-116) mg/dL Calcium (8.6-10.2) mg/dL Total Bilirubin (0.1-1.3) mg/dL AST (5-27) IU/L ALT (14-26) IU/L Alkaline Phosphatase (56-112) IU/L Troponin I 0.74 H* (0.02-0.06) NG/ML Total Protein (6.0-8.0) g/dL Albumin (3.2-4.6) g/dL Globulin g/dL Albumin/Globulin Ratio [place] Results Last 24 Hours: Microbiology 04/11/17 15:20 Aerobic Blood Culture - Preliminary Blood - Venous NO GROWTH AFTER 1 DAY Anaerobic Blood Culture - Preliminary NO GROWTH AFTER 1 DAY 04/11/17 15:30 Aerobic Blood Culture - Preliminary Blood - Venous - Lab Draw NO GROWTH AFTER 1 DAY Anaerobic Blood Culture - Preliminary NO GROWTH AFTER 1 DAY Med Orders - Current: Current Medications Acetaminophen (Tylenol) 650 mg PO Q4H PRN PRN Reason: PAIN / FEVER Albuterol (Ventolin Hfa) 0 gm INH Q4H PRN PRN Reason: Dyspnea Last Admin: 04/13/17 06:41 Dose: 2 inhalation Albuterol/Ipratropium (Duoneb 3.0-0.5 Mg/3 Ml) 3 ml NEB Q4H PRN PRN Reason: Wheezing Last Admin: 04/13/17 08:30 Dose: 3 ml Alprazolam (Xanax) 0.125 mg PO BID PRN PRN Reason: Anxiety Last Admin: 04/12/17 21:05 Dose: 0.125 mg Alprazolam (Xanax) 0.125 mg PO BEDTIME [facility] Last Admin: 04/12/17 21:04 Dose: 0.125 mg Cholecalciferol (Vitamin D3) 2,000 units PO DAILY [facility] Last Admin: 04/13/17 09:35 Dose: 2,000 units Fexofenadine HCl (Sangeeta) 180 mg PO DAILY [facility] Last Admin: 04/13/17 09:34 Dose: 180 mg Hydroxyzine HCl (Atarax) 25 mg PO BEDTIME PRN PRN Reason: Insomnia Last Admin: 04/13/17 02:56 Dose: 25 mg Levofloxacin/Dextrose 500 mg/ (Premix) 100 mls @ 100 mls/hr IV Q24H [facility] Last Admin: 04/12/17 16:03 Dose: 100 mls/hr Sodium Chloride (Normal Saline) 250 mls @ 0 mls/hr IV ASDIRECTED PRN; KVO PRN Reason: USE WITH ANTIBIOTIC Last Admin: 04/12/17 16:04 Dose: 50 mls/hr Levothyroxine Sodium (Levothyroxine) 150 mcg PO 0600 [facility] Last Admin: 04/13/17 06:07 Dose: 150 mcg Metoprolol Tartrate (Lopressor) 50 mg PO BID [facility] Last Admin: 04/13/17 09:34 Dose: 50 mg Mometasone Furoate/Formoterol Fumar (Dulera 200-5 Mcg) 0 puff IH BID [facility] Last Admin: 04/13/17 09:34 Dose: 2 puff Multivitamins/Minerals (Vitamins And Minerals) 1 tab PO DAILY [facility] Last Admin: 04/13/17 09:35 Dose: 1 tab Mycophenolate Mofetil [Cellcept] 250mg *Ptom 500 mg PO BID [facility] Last Admin: 04/13/17 09:35 Dose: 500 mg Ondansetron HCl (Zofran Odt) 4 mg PO Q4H PRN PRN Reason: nausea, able to take PO Pantoprazole Sodium (Protonix) 40 mg PO 0600 [facility] Last Admin: 04/13/17 06:07 Dose: 40 mg Simvastatin (Zocor) 5 mg PO BEDTIME [facility] Last Admin: 04/12/17 21:00 Dose: 5 mg Sodium Chloride (Saline Flush) 10 ml FLUSH ASDIRECTED PRN PRN Reason: Keep Vein Open Last Admin: 04/11/17 21:57 Dose: 10 ml Terazosin HCl (Hytrin) 10 mg PO BEDTIME [facility] Last Admin: 04/12/17 20:59 Dose: 10 mg Tiotropium [place] (Spiriva Handihaler) 0 mcg INH DAILY [facility] Last Admin: 04/13/17 09:35 Dose: 1 inh Tiotropium [place] (Spiriva Handihaler) mcg INH DAILY [facility] Torsemide (Demadex) 20 mg PO Q48H [facility] Warfarin Sodium (Coumadin Sliding Scale) 1 each PO ASDIRECTED [facility] Warfarin Sodium (Coumadin) 2.5 mg PO 1600 [facility] Discontinued Medications Digoxin (Lanoxin) 125 mcg IVPUSH ONETIME ONE Stop: 04/11/17 21:14 Last Admin: 04/11/17 21:46 Dose: 125 mcg Furosemide (Lasix) 40 mg IVPUSH NOW ONE Stop: 04/11/17 18:05 Last Admin: 04/11/17 19:41 Dose: 40 mg Furosemide (Lasix) 40 mg PO BIDDIURETIC [facility] Last Admin: 04/12/17 12:26 Dose: Not Given Iopamidol (Isovue-370 (76%)) 75 ml IV ONETIME ONE Stop: 04/12/17 10:20 Last Admin: 04/12/17 11:03 Dose: 59 ml Mometasone Furoate/Formoterol Fumar (Dulera 200-5 Mcg) 2 puff IH BID [facility] Last Admin: 04/11/17 20:55 Dose: 2 puff Mometasone Furoate/Formoterol Fumar (Dulera 200-5 Mcg) 0 puff IH BID [facility] Nitroglycerin (Nitro-Dur 0.1 Mg/Hr) 0.1 mg TRDERM ONETIME ONE Stop: 04/11/17 18:08 Last Admin: 04/11/17 19:39 Dose: 0.1 mg Prednisone (Prednisone) 20 mg PO BIDMEALS [facility] Last Admin: 04/12/17 12:26 Dose: Not Given Rivaroxaban (Xarelto) 20 mg PO DAILY [facility] Last Admin: 04/12/17 12:27 Dose: Not Given Simvastatin (Zocor) 5 mg PO BEDTIME [facility] Last Admin: 04/11/17 21:00 Dose: 5 mg Simvastatin (Zocor) Confirm Administered Dose 10 mg .ROUTE .STK-MED ONE Stop: 04/11/17 20:51 Last Admin: 04/11/17 20:54 Dose: Not Given Warfarin Sodium (Coumadin) 4 mg PO ONETIME ONE Stop: 04/12/17 16:01 Last Admin: 04/12/17 16:00 Dose: 4 mg - Exam General: Alert, Oriented, Cooperative Lungs: Clear to Auscultation, Normal Respiratory Effort. No: Crackles, Rales, Rhonchi, Rub Cardiovascular: No Murmurs, Irregular Rhythm, Tachycardia Extremities: Pedal Edema - Problem List & Annotations (1) Rapid atrial fibrillation SNOMED Code(s): 882806837 Code(s): I48.91 - UNSPECIFIED ATRIAL FIBRILLATION Status: Acute Current Visit: Yes (2) Palliative care status SNOMED Code(s): 510704396 Code(s): Z51.5 - ENCOUNTER FOR PALLIATIVE CARE Status: Acute Current Visit: Yes (3) CAP (community acquired pneumonia) SNOMED Code(s): 751245085 Code(s): J18.9 - PNEUMONIA, UNSPECIFIED ORGANISM Status: Acute Priority: High Current Visit: No (4) COPD (chronic obstructive pulmonary disease) SNOMED Code(s): 33655095 Code(s): J44.9 - CHRONIC OBSTRUCTIVE PULMONARY DISEASE, UNSPECIFIED Status : Acute Current Visit: No (5) Hyponatremia SNOMED Code(s): 56302271 Code(s): E87.1 - HYPO-OSMOLALITY AND HYPONATREMIA Status: Acute Current Visit: Yes - Problem List Review Problem List Initiated/Reviewed/Updated: Yes - My Orders Last 24 Hours: My Active Orders 04/12/17 08:58 Albuterol [Ventolin HFA] 0 gm INH Q4H PRN 04/12/17 09:00 Cholecalciferol (Vitamin D3) [Vitamin D3] 2,000 units PO DAILY Fexofenadine [Sangeeta] 180 mg PO DAILY Metoprolol Tartrate [Lopressor] 50 mg PO BID Multivitamins/Minerals [Vitamins and Minerals] 1 tab PO DAILY 04/12/17 09:15 Warfarin Sliding Scale [Coumadin Sliding Scale] 1 each PO ASDIRECTED 04/12/17 09:53 Chest w wo Cont [CT] Routine 04/13/17 16:00 Warfarin [Coumadin] 2.5 mg PO 1600 04/14/17 09:00 Tiotropium [Spiriva HandiHaler] 1 puff INH DAILY - Plan Plan:: 1. Continue current care. 2. Patient wanted the telemetry unit off. I'm at least watch it through the day. His heart rate is normal when he is on the metoprolol. And at the end of the effective dose for needs Doses are significant.
[2017-04-13] MEDS: Warfarin 2.5 MG Tab PO SCH (16:25)
[2017-04-13] MEDS: Levofloxacin/Dextrose 5%-Water 500 MG in Premix Bag 1 BAG IV SCH (16:26)
[2017-04-13] MEDS: Terazosin 5 MG Cap PO SCH (20:51)
[2017-04-13] MEDS: Simvastatin 10 MG Tab PO SCH (20:52)
[2017-04-13] MEDS: ALPRAZolam 0.25 MG Tab PO SCH (20:55)
[2017-04-14] MEDS: Albuterol 8 GM Inhaler INH PRN (03:42)
[2017-04-14] MEDS: Pantoprazole 40 MG Tab.CR PO SCH (06:38)
[2017-04-14] MEDS: Levothyroxine 150 MCG Tab PO SCH (06:38)
[2017-04-14] MEDS: Albuterol/Ipratropium 3.0-0.5 MG/3 ML Neb Soln NEB PRN ×2 (07:40→20:44)
[2017-04-14] MEDS ORDERED: Fluticasone Propionate Nasal Spray 16 GM Bottle NASBOTH SCH (09:00)
[2017-04-14] MEDS ORDERED: Tiotropium Inhaler 18 MCG Inhalation Powder Cap Kit of 5 INH SCH (09:00)
[2017-04-14] MEDS: Tiotropium Inhaler 18 MCG Inhalation Powder Cap Kit of 5 INH SCH (09:15)
[2017-04-14] MEDS: Formoterol/Mometasone 200-5 MCG 8.8 GM Inhaler IH SCH ×2 (09:15→20:39)
[2017-04-14] MEDS: Metoprolol Tartrate 50 MG Tab PO SCH ×2 (09:16→20:40)
[2017-04-14] MEDS: Cholecalciferol (Vitamin D3) 1,000 Unit Tab PO SCH (09:17)
[2017-04-14] MEDS: MYCOPHENOLATE MOFETIL 250 MG PO SCH ×2 (09:17→20:41)
[2017-04-14] MEDS: Multivitamins, Therapeutic with Minerals Tab PO SCH (09:17)
--- NOTE | 2017-04-14 09:21 | PCM.PN ---
- General Info Date of Service: 04/14/17 Admission Dx/Problem (Free Text): Patient states that he feels good. He states that he is well discussed that he still short of breath when he walks. He has no chest pain. His leg swelling is better when he wraps his feet at night. Little cough. No fevers or chills. - Patient Data Vitals - Most Recent: Last Vital Signs Temp 98.3 F 04/14/17 08:00 Pulse 108 H 04/14/17 09:16 Resp 20 04/14/17 08:00 BP 122/74 04/14/17 09:16 Pulse Ox 89 L 04/14/17 08:00 Weight - Most Recent: 158 lb 1 oz Lab Results Last 24 Hours: Laboratory Results - last 24 hr 04/13/17 Range/Units 10:35 TSH, Ultra Sensitive 1.30 (0.4-5.5) nlU/mL [place]ron Results Last 24 Hours: Microbiology 04/11/17 15:20 Aerobic Blood Culture - Preliminary Blood - Venous NO GROWTH AFTER 2 DAYS Anaerobic Blood Culture - Preliminary NO GROWTH AFTER 2 DAYS 04/11/17 15:30 Aerobic Blood Culture - Preliminary Blood - Venous - Lab Draw NO GROWTH AFTER 2 DAYS Anaerobic Blood Culture - Preliminary NO GROWTH AFTER 2 DAYS Med Orders - Current: Current Medications Acetaminophen (Tylenol) 650 mg PO Q4H PRN PRN Reason: PAIN / FEVER Albuterol (Ventolin Hfa) 0 gm INH Q4H PRN PRN Reason: Dyspnea Last Admin: 04/14/17 03:42 Dose: 2 inhalation Albuterol/Ipratropium (Duoneb 3.0-0.5 Mg/3 Ml) 3 ml NEB Q4H PRN PRN Reason: Wheezing Last Admin: 04/14/17 07:40 Dose: 3 ml Allopurinol (Zyloprim) 100 mg PO DAILY [facility] Alprazolam (Xanax) 0.125 mg PO BID PRN PRN Reason: Anxiety Last Admin: 04/12/17 21:05 Dose: 0.125 mg Alprazolam (Xanax) 0.125 mg PO BEDTIME [facility] Last Admin: 04/13/17 20:55 Dose: 0.125 mg Cholecalciferol (Vitamin D3) 2,000 units PO DAILY [facility] Last Admin: 04/14/17 09:17 Dose: 2,000 units Fexofenadine HCl (Sangeeta) 180 mg PO DAILY [facility] Last Admin: 04/14/17 09:16 Dose: 180 mg Fluticasone Propionate (Flonase) 0 gm NASBOTH DAILY [facility] Hydroxyzine HCl (Atarax) 25 mg PO BEDTIME PRN PRN Reason: Insomnia Last Admin: 04/13/17 02:56 Dose: 25 mg Levofloxacin/Dextrose 500 mg/ (Premix) 100 mls @ 100 mls/hr IV Q24H [facility] Last Admin: 04/13/17 16:26 Dose: 100 mls/hr Sodium Chloride (Normal Saline) 250 mls @ 0 mls/hr IV ASDIRECTED PRN; KVO PRN Reason: USE WITH ANTIBIOTIC Last Admin: 04/12/17 16:04 Dose: 50 mls/hr Levothyroxine Sodium (Levothyroxine) 150 mcg PO 0600 [facility] Last Admin: 04/14/17 06:38 Dose: 150 mcg Metoprolol Tartrate (Lopressor) 50 mg PO BID [facility] Last Admin: 04/14/17 09:16 Dose: 50 mg Mometasone Furoate/Formoterol Fumar (Dulera 200-5 Mcg) 0 puff IH BID [facility] Last Admin: 04/14/17 09:15 Dose: 2 puff Multivitamins/Minerals (Vitamins And Minerals) 1 tab PO DAILY [facility] Last Admin: 04/14/17 09:17 Dose: 1 tab Mycophenolate Mofetil [Cellcept] 250mg *Ptom 500 mg PO BID [facility] Last Admin: 04/14/17 09:17 Dose: 500 mg Ondansetron HCl (Zofran Odt) 4 mg PO Q4H PRN PRN Reason: nausea, able to take PO Pantoprazole Sodium (Protonix) 40 mg PO 0600 [facility] Last Admin: 04/14/17 06:38 Dose: 40 mg Simvastatin (Zocor) 5 mg PO BEDTIME [facility] Last Admin: 04/13/17 20:52 Dose: 5 mg Sodium Chloride (Saline Flush) 10 ml FLUSH ASDIRECTED PRN PRN Reason: Keep Vein Open Last Admin: 04/11/17 21:57 Dose: 10 ml Terazosin HCl (Hytrin) 10 mg PO BEDTIME [facility] Last Admin: 04/13/17 20:51 Dose: 10 mg Tiotropium [place] (Spiriva Handihaler) 0 mcg INH DAILY [facility] Last Admin: 04/14/17 09:15 Dose: 1 inh Torsemide (Demadex) 20 mg PO Q48H [facility] Last Admin: 04/14/17 09:12 Dose: 20 mg Warfarin Sodium (Coumadin Sliding Scale) 1 each PO ASDIRECTED [facility] Warfarin Sodium (Coumadin) 2.5 mg PO 1600 [facility] Last Admin: 04/13/17 16:25 Dose: 2.5 mg Discontinued Medications Digoxin (Lanoxin) 125 mcg IVPUSH ONETIME ONE Stop: 04/11/17 21:14 Last Admin: 04/11/17 21:46 Dose: 125 mcg Furosemide (Lasix) 40 mg IVPUSH NOW ONE Stop: 04/11/17 18:05 Last Admin: 04/11/17 19:41 Dose: 40 mg Furosemide (Lasix) 40 mg PO BIDDIURETIC [facility] Last Admin: 04/12/17 12:26 Dose: Not Given Iopamidol (Isovue-370 (76%)) 75 ml IV ONETIME ONE Stop: 04/12/17 10:20 Last Admin: 04/12/17 11:03 Dose: 59 ml Mometasone Furoate/Formoterol Fumar (Dulera 200-5 Mcg) 2 puff IH BID [facility] Last Admin: 04/11/17 20:55 Dose: 2 puff Mometasone Furoate/Formoterol Fumar (Dulera 200-5 Mcg) 0 puff IH BID [facility] Nitroglycerin (Nitro-Dur 0.1 Mg/Hr) 0.1 mg TRDERM ONETIME ONE Stop: 04/11/17 18:08 Last Admin: 04/11/17 19:39 Dose: 0.1 mg Prednisone (Prednisone) 20 mg PO BIDMEALS [facility] Last Admin: 04/12/17 12:26 Dose: Not Given Rivaroxaban (Xarelto) 20 mg PO DAILY [facility] Last Admin: 04/12/17 12:27 Dose: Not Given Simvastatin (Zocor) 5 mg PO BEDTIME [facility] Last Admin: 04/11/17 21:00 Dose: 5 mg Simvastatin (Zocor) Confirm Administered Dose 10 mg .ROUTE .STK-MED ONE Stop: 04/11/17 20:51 Last Admin: 04/11/17 20:54 Dose: Not Given Warfarin Sodium (Coumadin) 4 mg PO ONETIME ONE Stop: 04/12/17 16:01 Last Admin: 04/12/17 16:00 Dose: 4 mg - Exam General: Alert, Oriented, Cooperative Lungs: Clear to Auscultation, Normal Respiratory Effort. No: Crackles, Rales, Rhonchi Cardiovascular: Regular Rate, Irregular Rhythm. No: Murmurs Extremities: No Pedal Edema - Problem List & Annotations (1) Rapid atrial fibrillation SNOMED Code(s): 600683013 Code(s): I48.91 - UNSPECIFIED ATRIAL FIBRILLATION Status: Acute Current Visit: Yes (2) Palliative care status SNOMED Code(s): 350720855 Code(s): Z51.5 - ENCOUNTER FOR PALLIATIVE CARE Status: Acute Current Visit: Yes (3) CAP (community acquired pneumonia) SNOMED Code(s): 215779796 Code(s): J18.9 - PNEUMONIA, UNSPECIFIED ORGANISM Status: Acute Priority: High Current Visit: No (4) COPD (chronic obstructive pulmonary disease) SNOMED Code(s): 79801509 Code(s): J44.9 - CHRONIC OBSTRUCTIVE PULMONARY DISEASE, UNSPECIFIED Status : Acute Current Visit: No (5) Hyponatremia SNOMED Code(s): 90126568 Code(s): E87.1 - HYPO-OSMOLALITY AND HYPONATREMIA Status: Acute Current Visit: Yes - Problem List Review Problem List Initiated/Reviewed/Updated: Yes - My Orders Last 24 Hours: My Active Orders 04/13/17 09:57 Consult to Occupational Therapy [OT Evaluation and Treatment] [CONS] Routine Consult to Physical Therapy [PT Evaluation and Treatment] [CONS] Routine 04/13/17 16:00 Warfarin [Coumadin] 2.5 mg PO 1600 04/13/17 17:07 Floyd Bandage [RC] 04/14/17 09:00 Allopurinol [Zyloprim] 100 mg PO DAILY Fluticasone Propionate [Flonase] 0 gm NASBOTH DAILY 04/14/17 09:18 Up ad Brianne [RC] ASDIRECTED CBC WITH AUTO DIFF [HEME] Routine 04/15/17 07:00 CXR [Chest 2V] [CR] Routine - Plan Plan:: 1. Going to try Solu-Medrol 125 IV daily see that helps his breathing. 2. Chest x-ray in a.m. and a CBC today. 3. DC telemetry. 4. Up ad brianne.
[2017-04-14] MEDS: Allopurinol 100 MG Tab PO SCH (09:22)
[2017-04-14] MEDS ORDERED: methylPREDNISolone Sodium Succinate 125 MG/2 ML SDV ONE (09:56)
[2017-04-14] MEDS ORDERED: methylPREDNISolone Sodium Succinate 125 MG/2 ML SDV IVPUSH ONE (10:26)
[2017-04-14] MEDS: Levofloxacin/Dextrose 5%-Water 500 MG in Premix Bag 1 BAG IV SCH (16:29)
[2017-04-14] MEDS: Warfarin 2.5 MG Tab PO SCH (16:31)
[2017-04-14] MEDS: Terazosin 5 MG Cap PO SCH (20:40)
[2017-04-14] MEDS: Simvastatin 10 MG Tab PO SCH (20:41)
[2017-04-14] MEDS: ALPRAZolam 0.25 MG Tab PO SCH (20:44)
[2017-04-14] MEDS: hydrOXYzine HCl 25 MG Tab PO PRN (23:27)
[2017-04-15] MEDS: Pantoprazole 40 MG Tab.CR PO SCH (06:10)
[2017-04-15] MEDS: Levothyroxine 150 MCG Tab PO SCH (06:10)
[2017-04-15] MEDS: Albuterol 8 GM Inhaler INH PRN (06:10)
[2017-04-15] MEDS ORDERED: Fluticasone Propionate Nasal Spray 16 GM Bottle NASBOTH SCH (07:29)
[2017-04-15] MEDS ORDERED: Torsemide 20 MG Tab PO SCH (09:00)
[2017-04-15] MEDS ORDERED: methylPREDNISolone Sodium Succinate 125 MG/2 ML SDV IVPUSH SCH (09:00)
--- NOTE | 2017-04-15 09:17 | PCM.PN ---
- General Info Date of Service: 04/15/17 Admission Dx/Problem (Free Text): Patient states that his breathing is better when he walks. Denies cough, fevers , chills still has leg swelling is improved. - Patient Data Vitals - Most Recent: Last Vital Signs Temp 97.8 F 04/15/17 07:34 Pulse 97 04/15/17 07:34 Resp 20 04/15/17 07:34 BP 125/85 04/15/17 07:34 Pulse Ox 97 04/15/17 07:34 Weight - Most Recent: 158 lb 7 oz I&O - Last 24 Hours: Intake & Output 04/14/17 04/15/17 04/15/17 22:59 06:59 14:59 Output Total 300 Balance -300 Lab Results Last 24 Hours: Laboratory Results - last 24 hr 04/14/17 04/15/17 Range/Units 09:30 06:40 WBC 15.9 H 12.5 H (4.5-12.0) X10-3/uL RBC 3.49 L 3.48 L (4.30-5.75) x10(6)uL Hgb 10.7 L 10.5 L (11.5-15.5) g/dL Hct 32.3 32.0 (30.0-51.3) % MCV 92.7 91.9 (80-96) fL MCH 30.6 30.0 (27.7-33.6) pg MCHC 33.0 32.7 (32.2-35.4) g/dL RDW 15.7 H 15.8 H (11.5-15.5) % Plt Count 229 305 (125-369) X10(3)uL MPV 9.3 9.8 (7.4-10.4) fL Neut % (Auto) 85.6 H (46-82) % Lymph % (Auto) 3.7 L (13-37) % [place] % (Auto) 9.1 (4-12) % Eos % (Auto) 0 L (1.0-5.0) % Baso % (Auto) 1 (0-2) % Neut # (Auto) 13.6 H (1.6-8.3) # Lymph # (Auto) 0.6 (0.6-5.0) # [place] # (Auto) 1.5 H (0.0-1.3) # Eos # (Auto) 0.0 (0.0-0.8) # Baso # (Auto) 0.2 (0.0-0.2) # Add Manual Diff Yes Neutrophils % (Manual) 87 H (46-82) % Lymphocytes % (Manual) 10 L (13-37) % Monocytes % (Manual) 3 L (4-12) % Camron Results Last 24 Hours: Microbiology 04/11/17 15:20 Aerobic Blood Culture - Preliminary Blood - Venous NO GROWTH AFTER 3 DAYS Anaerobic Blood Culture - Preliminary NO GROWTH AFTER 3 DAYS 04/11/17 15:30 Aerobic Blood Culture - Preliminary Blood - Venous - Lab Draw NO GROWTH AFTER 3 DAYS Anaerobic Blood Culture - Preliminary NO GROWTH AFTER 3 DAYS Med Orders - Current: Current Medications Acetaminophen (Tylenol) 650 mg PO Q4H PRN PRN Reason: PAIN / FEVER Albuterol (Ventolin Hfa) 0 gm INH Q4H PRN PRN Reason: Dyspnea Last Admin: 04/15/17 06:10 Dose: 2 inhalation Albuterol/Ipratropium (Duoneb 3.0-0.5 Mg/3 Ml) 3 ml NEB Q4H PRN PRN Reason: Wheezing Last Admin: 04/14/17 20:44 Dose: 3 ml Allopurinol (Zyloprim) 100 mg PO DAILY [facility] Last Admin: 04/14/17 09:22 Dose: 100 mg Alprazolam (Xanax) 0.125 mg PO BID PRN PRN Reason: Anxiety Last Admin: 04/12/17 21:05 Dose: 0.125 mg Alprazolam (Xanax) 0.125 mg PO BEDTIME [facility] Last Admin: 04/14/17 20:44 Dose: 0.125 mg Cholecalciferol (Vitamin D3) 2,000 units PO DAILY [facility] Last Admin: 04/14/17 09:17 Dose: 2,000 units Fexofenadine HCl (Sangeeta) 180 mg PO DAILY [facility] Last Admin: 04/14/17 09:16 Dose: 180 mg Fluticasone Propionate (Flonase) 0 gm NASBOTH DAILY [facility] Hydroxyzine HCl (Atarax) 25 mg PO BEDTIME PRN PRN Reason: Insomnia Last Admin: 04/14/17 23:27 Dose: 25 mg Levofloxacin (Levaquin) 500 mg PO Q24H [facility] Levothyroxine Sodium (Levothyroxine) 150 mcg PO 0600 [facility] Last Admin: 04/15/17 06:10 Dose: 150 mcg Metoprolol Tartrate (Lopressor) 50 mg PO BID [facility] Last Admin: 04/14/17 20:40 Dose: 50 mg Mometasone Furoate/Formoterol Fumar (Dulera 200-5 Mcg) 0 puff IH BID [facility] Last Admin: 04/14/17 20:39 Dose: 2 puff Multivitamins/Minerals (Vitamins And Minerals) 1 tab PO DAILY [facility] Last Admin: 04/14/17 09:17 Dose: 1 tab Mycophenolate Mofetil [Cellcept] 250mg *Ptom 500 mg PO BID [facility] Last Admin: 04/14/17 20:41 Dose: 500 mg Ondansetron HCl (Zofran Odt) 4 mg PO Q4H PRN PRN Reason: nausea, able to take PO Pantoprazole Sodium (Protonix) 40 mg PO 0600 [facility] Last Admin: 04/15/17 06:10 Dose: 40 mg Prednisone (Prednisone) 60 mg PO DAILY [facility] Simvastatin (Zocor) 5 mg PO BEDTIME [facility] Last Admin: 04/14/17 20:41 Dose: 5 mg Sodium Chloride (Saline Flush) 10 ml FLUSH ASDIRECTED PRN PRN Reason: Keep Vein Open Last Admin: 04/11/17 21:57 Dose: 10 ml Terazosin HCl (Hytrin) 10 mg PO BEDTIME [facility] Last Admin: 04/14/17 20:40 Dose: 10 mg Tiotropium [place] (Spiriva Handihaler) 0 mcg INH DAILY [facility] Last Admin: 04/14/17 09:15 Dose: 1 inh Torsemide (Demadex) 20 mg PO DAILY [facility] Warfarin Sodium (Coumadin Sliding Scale) 1 each PO ASDIRECTED [facility] Warfarin Sodium (Coumadin) 2.5 mg PO 1600 [facility] Last Admin: 04/14/17 16:31 Dose: 2.5 mg Discontinued Medications Digoxin (Lanoxin) 125 mcg IVPUSH ONETIME ONE Stop: 04/11/17 21:14 Last Admin: 04/11/17 21:46 Dose: 125 mcg Fluticasone Propionate (Flonase) 0 gm NASBOTH DAILY [facility] Last Admin: 04/14/17 09:43 Dose: 2 spray Furosemide (Lasix) 40 mg IVPUSH NOW ONE Stop: 04/11/17 18:05 Last Admin: 04/11/17 19:41 Dose: 40 mg Furosemide (Lasix) 40 mg PO BIDDIURETIC [facility] Last Admin: 04/12/17 12:26 Dose: Not Given Levofloxacin/Dextrose 500 mg/ (Premix) 100 mls @ 100 mls/hr IV Q24H [facility] Last Admin: 04/14/17 16:29 Dose: 100 mls/hr Sodium Chloride (Normal Saline) 250 mls @ 0 mls/hr IV ASDIRECTED PRN; KVO PRN Reason: USE WITH ANTIBIOTIC Last Admin: 04/12/17 16:04 Dose: 50 mls/hr Iopamidol (Isovue-370 (76%)) 75 ml IV ONETIME ONE Stop: 04/12/17 10:20 Last Admin: 04/12/17 11:03 Dose: 59 ml Methylprednisolone Sodium Succinate (Solu-Medrol) 125 mg IVPUSH DAILY [facility] Methylprednisolone Sodium Succinate (Solu-Medrol) Confirm Administered Dose 125 mg .ROUTE .STK-MED ONE Stop: 04/14/17 09:57 Last Admin: 04/14/17 13:28 Dose: Not Given Methylprednisolone Sodium Succinate (Solu-Medrol) 125 mg IVPUSH ONETIME ONE Stop: 04/14/17 10:27 Last Admin: 04/14/17 13:27 Dose: 125 mg Mometasone Furoate/Formoterol Fumar (Dulera 200-5 Mcg) 2 puff IH BID [facility] Last Admin: 04/11/17 20:55 Dose: 2 puff Mometasone Furoate/Formoterol Fumar (Dulera 200-5 Mcg) 0 puff IH BID [facility] Nitroglycerin (Nitro-Dur 0.1 Mg/Hr) 0.1 mg TRDERM ONETIME ONE Stop: 04/11/17 18:08 Last Admin: 04/11/17 19:39 Dose: 0.1 mg Prednisone (Prednisone) 20 mg PO BIDMEALS [facility] Last Admin: 04/12/17 12:26 Dose: Not Given Rivaroxaban (Xarelto) 20 mg PO DAILY [facility] Last Admin: 04/12/17 12:27 Dose: Not Given Simvastatin (Zocor) 5 mg PO BEDTIME [facility] Last Admin: 04/11/17 21:00 Dose: 5 mg Simvastatin (Zocor) Confirm Administered Dose 10 mg .ROUTE .STK-MED ONE Stop: 04/11/17 20:51 Last Admin: 04/11/17 20:54 Dose: Not Given Torsemide (Demadex) 20 mg PO Q48H [facility] Last Admin: 04/14/17 09:12 Dose: 20 mg Warfarin Sodium (Coumadin) 4 mg PO ONETIME ONE Stop: 04/12/17 16:01 Last Admin: 04/12/17 16:00 Dose: 4 mg - Exam General: Alert, Oriented, Cooperative Neck: Supple Lungs: Clear to Auscultation, Normal Respiratory Effort Cardiovascular: Regular Rhythm, Irregular Rhythm. No: Murmurs Extremities: Pedal Edema Skin: Warm, Dry, Intact Psy/Mental Status: Alert, Normal Affect, Normal Mood - Problem List & Annotations (1) Rapid atrial fibrillation SNOMED Code(s): 846241692 Code(s): I48.91 - UNSPECIFIED ATRIAL FIBRILLATION Status: Acute Current Visit: Yes (2) Palliative care status SNOMED Code(s): 367071527 Code(s): Z51.5 - ENCOUNTER FOR PALLIATIVE CARE Status: Acute Current Visit: Yes (3) CAP (community acquired pneumonia) SNOMED Code(s): 078106867 Code(s): J18.9 - PNEUMONIA, UNSPECIFIED ORGANISM Status: Acute Priority: High Current Visit: No (4) COPD (chronic obstructive pulmonary disease) SNOMED Code(s): 78309601 Code(s): J44.9 - CHRONIC OBSTRUCTIVE PULMONARY DISEASE, UNSPECIFIED Status : Acute Current Visit: No (5) Hyponatremia SNOMED Code(s): 63793384 Code(s): E87.1 - HYPO-OSMOLALITY AND HYPONATREMIA Status: Acute Current Visit: Yes - Problem List Review Problem List Initiated/Reviewed/Updated: Yes - My Orders Last 24 Hours: My Active Orders 04/14/17 09:00 Allopurinol [Zyloprim] 100 mg PO DAILY 04/14/17 09:18 Up ad Brianne [RC] ASDIRECTED 04/14/17 09:22 Convert IV to Saline Lock [OM.PC] Routine 04/15/17 07:00 CXR [Chest 2V] [CR] Routine 04/15/17 07:29 Fluticasone Propionate [Flonase] 0 gm NASBOTH DAILY 04/15/17 08:21 INR,PT,PROTHROMBIN TIME [COAG] Routine 04/15/17 09:00 Torsemide [Demadex] 20 mg PO DAILY 04/15/17 09:15 Levofloxacin [Levaquin] 500 mg PO Q24H 04/16/17 09:00 predniSONE 60 mg PO DAILY - Plan Plan:: 1. Chest x-ray today. 2. Stop Solu-Medrol and start 60 mg prednisone once a day. 3. Stop IV Levaquin and start by mouth Levaquin. 4. Evaluate for possible swing by PT/OT.
[2017-04-15] MEDS: Formoterol/Mometasone 200-5 MCG 8.8 GM Inhaler IH SCH ×2 (09:19→20:50)
[2017-04-15] MEDS: Metoprolol Tartrate 50 MG Tab PO SCH ×2 (09:19→20:51)
[2017-04-15] MEDS: Tiotropium Inhaler 18 MCG Inhalation Powder Cap Kit of 5 INH SCH (09:20)
[2017-04-15] MEDS: Cholecalciferol (Vitamin D3) 1,000 Unit Tab PO SCH (09:20)
[2017-04-15] MEDS: MYCOPHENOLATE MOFETIL 250 MG PO SCH ×2 (09:20→20:52)
[2017-04-15] MEDS: Multivitamins, Therapeutic with Minerals Tab PO SCH (09:20)
[2017-04-15] MEDS: Allopurinol 100 MG Tab PO SCH (09:46)
[2017-04-15] MEDS ORDERED: predniSONE 20 MG Tab PO SCH (10:00)
[2017-04-15] MEDS: Albuterol/Ipratropium 3.0-0.5 MG/3 ML Neb Soln NEB PRN ×2 (14:27→20:48)
[2017-04-15] MEDS ORDERED: Levofloxacin 500 MG Tab PO SCH (16:00)
[2017-04-15] MEDS ORDERED: Bisacodyl 5 MG Tab PO PRN (16:14)
[2017-04-15] MEDS: Terazosin 5 MG Cap PO SCH (20:51)
[2017-04-15] MEDS: Simvastatin 10 MG Tab PO SCH (20:53)
[2017-04-15] MEDS: ALPRAZolam 0.25 MG Tab PO SCH (20:55)
[2017-04-15] MEDS: hydrOXYzine HCl 25 MG Tab PO PRN (23:19)
[2017-04-16] MEDS: Albuterol 8 GM Inhaler INH PRN (02:25)
[2017-04-16] MEDS: Levothyroxine 150 MCG Tab PO SCH (05:53)
[2017-04-16] MEDS: Pantoprazole 40 MG Tab.CR PO SCH (05:53)
[2017-04-16] MEDS: Albuterol/Ipratropium 3.0-0.5 MG/3 ML Neb Soln NEB PRN (05:53)
--- NOTE | 2017-04-16 08:05 | PCM.DCSUM1 ---
Discharge Summary - Hospital Course Free Text/Narrative:: Hospital course-patient was admitted place on Levaquin. Blood cultures and sputum cultures are negative. Patient had rapid atrial fibrillation when he was here. At home he takes 50-100 mg of torsemide leg swelling and metipranolol when necessary. Safety did not use both his blood pressure went too low. I placed him on metoprolol 50 mg twice a day that controlled his rate. Then I started some steroids and that helped his breathing. He did quite well. PT is saw him felt all 5 for swing bed. Transfer him to swing bed. Weeks changes torsemide to 20 mg a day as metipranolol 50 twice a day continues. He'll be on prednisone and Levaquin. Brief History: This is an 86-year-old male patient with lung CA that has a history pneumonia. Had 10 day history of increasing shortness of breath. He was sent to the hospital and diagnosed with pneumonia and admitted with on Levaquin. He also atrial fibrillation. - Discharge Data Discharge Date: 04/16/17 Discharge Disposition: DC/Tfer W/I Hosp To [place] [id number] Condition: Good - Discharge Diagnosis/Problem(s) (1) Rapid atrial fibrillation SNOMED Code(s): 564422262 ICD Code: I48.91 - UNSPECIFIED ATRIAL FIBRILLATION Status: Acute Current Visit: Yes (2) Palliative care status SNOMED Code(s): 809469514 ICD Code: Z51.5 - ENCOUNTER FOR PALLIATIVE CARE Status: Acute Current Visit: Yes (3) CAP (community acquired pneumonia) SNOMED Code(s): 952820430 ICD Code: J18.9 - PNEUMONIA, UNSPECIFIED ORGANISM Status: Acute Priority : High Current Visit: No (4) COPD (chronic obstructive pulmonary disease) SNOMED Code(s): 00470715 ICD Code: J44.9 - CHRONIC OBSTRUCTIVE PULMONARY DISEASE, UNSPECIFIED Status : Acute Current Visit: No (5) Hyponatremia SNOMED Code(s): 29905566 ICD Code: E87.1 - HYPO-OSMOLALITY AND HYPONATREMIA Status: Acute Current Visit: Yes - Patient Summary/Data Consults: Consultations 04/13/17 09:57 Consult to Occupational Therapy [OT Evaluation and Treatment] [CONS] Routine Please Evaluate and Treat. OT Reason for Consult: Strengthening This query below is only for informational purposes and is not editable. Admission Diagnosis/Problem: Dyspnea Consult to Physical Therapy [PT Evaluation and Treatment] [CONS] Routine Please Evaluate and Treat. PT Reason for Consult: Strengthening This query below is only for informational purposes and is not editable. Admission Diagnosis/Problem: Dyspnea - Patient Instructions Diet: Heart Healthy Diet Activity: As Tolerated Driving: Do Not Drive Showering/Bathing: May Shower Other/Special Instructions: 1. Transfer to swing bed on metoprolol 50 mg twice a day, torsemide 20 mg twice a day, prednisone 60 mg then taper, Levaquin 2050 mg a day. - Discharge Plan Prescriptions/Med Rec: Metoprolol Tartrate [Lopressor] 50 mg PO BID #60 tablet Torsemide [Demadex] 20 mg PO DAILY #60 tablet Home Medications: Home Meds ALPRAZolam [Xanax] 0.125 mg PO BEDTIME 10/24/13 [History] Budesonide/Formoterol [Symbicort 160-4.5 MCG] 2 inh IH BID 10/24/13 [History] Fexofenadine HCl [Sangeeta] 180 mg PO DAILY 10/24/13 [History] Levothyroxine 150 mcg PO DAILY 10/24/13 [History] Omeprazole 20 mg PO DAILY PRN 10/24/13 [History] Simvastatin [Zocor] 5 mg PO BEDTIME 10/24/13 [History] Terazosin [Hytrin] 10 mg PO BEDTIME 10/24/13 [History] Albuterol Sulfate [Proair Respiclick] 2 inh IH Q4HR PRN 02/02/15 [History] Cholecalciferol (Vitamin D3) [Vitamin D3] 2,000 units PO DAILY 02/02/15 [History ] Krill Oil 500 mg PO DAILY 02/02/15 [History] L.acidoph,Paracasei, B.lactis [Probiotic] 1 each PO DAILY 02/02/15 [History] Mycophenolate Mofetil [Cellcept] 500 mg PO BID 12/08/16 [History] ALPRAZolam [Xanax] 0.125 mg PO BID PRN #15 tablet 12/12/16 [Rx] Acetaminophen [Tylenol] 650 mg PO Q4H PRN #15 tablet 12/12/16 [Rx] Albuterol/Ipratropium [DuoNeb 3.0-0.5 MG/3 ML] 3 ml NEB Q4H PRN #60 neb [Rx] Allopurinol [Zyloprim] 100 mg PO DAILY 04/12/17 [History] Fluticasone Propionate [Flonase Allergy Relief] 2 spray NASBOTH DAILY 04/12/17 [ History] Multivitamin-Min/Iron/FA/Vit K [Multi-Day Plus Minerals Tablet] 1 each PO DAILY 04/12/17 [History] Tiotropium [Spiriva Handihaler] 1 puff INH DAILY 04/12/17 [History] Torsemide 50 mg PO Q48H 04/12/17 [History] Warfarin [Coumadin] 2.5 mg PO MO 04/12/17 [History] Warfarin [Coumadin] 4 mg PO SUTUWETHFRSA 04/12/17 [History] Levofloxacin [Levaquin] 250 mg PO Q24H #0 tablet 04/16/17 [Rx] Metoprolol Tartrate [Lopressor] 50 mg PO BID #60 tablet 04/16/17 [Rx] Prednisone [IJD: predniSONE] 60 mg PO DAILY #0 tablet 04/16/17 [Rx] Torsemide [Demadex] 20 mg PO DAILY #60 tablet 04/16/17 [Rx] - Discharge Summary/Plan Comment DC Time >30 min.: No - Patient Data Vitals - Most Recent: Last Vital Signs Temp 97.5 F 04/15/17 23:32 Pulse 90 04/15/17 23:32 Resp 20 04/15/17 23:32 BP 150/90 H 04/15/17 23:32 Pulse Ox 98 04/15/17 23:32 Weight - Most Recent: 155 lb 9.6 oz I&O - Last 24 hours: Intake & Output 04/15/17 04/16/17 04/16/17 22:59 06:59 14:59 Output Total 250 Balance -250 Lab Results - Last 24 hrs: Laboratory Results - last 24 hr 04/15/17 04/16/17 Range/Units 10:00 07:07 PT 37.2 H* 39.4 H* (8.7-11.1) INR 3.59 H 3.80 H (0.89-1.13) KSENIA Results - Last 24 hrs: Microbiology 04/11/17 15:20 Aerobic Blood Culture - Preliminary Blood - Venous NO GROWTH AFTER 4 DAYS Anaerobic Blood Culture - Preliminary NO GROWTH AFTER 4 DAYS 04/11/17 15:30 Aerobic Blood Culture - Preliminary Blood - Venous - Lab Draw NO GROWTH AFTER 4 DAYS Anaerobic Blood Culture - Preliminary NO GROWTH AFTER 4 DAYS Med Orders - Current: Current Medications Acetaminophen (Tylenol) 650 mg PO Q4H PRN PRN Reason: PAIN / FEVER Albuterol (Ventolin Hfa) 0 gm INH Q4H PRN PRN Reason: Dyspnea Last Admin: 04/16/17 02:25 Dose: 2 inhalation Albuterol/Ipratropium (Duoneb 3.0-0.5 Mg/3 Ml) 3 ml NEB Q4H PRN PRN Reason: Wheezing Last Admin: 04/16/17 05:53 Dose: 3 ml Allopurinol (Zyloprim) 100 mg PO DAILY [facility] Last Admin: 04/15/17 09:46 Dose: 100 mg Alprazolam (Xanax) 0.125 mg PO BID PRN PRN Reason: Anxiety Last Admin: 04/12/17 21:05 Dose: 0.125 mg Alprazolam (Xanax) 0.125 mg PO BEDTIME [facility] Last Admin: 04/15/17 20:55 Dose: 0.125 mg Bisacodyl (Dulcolax) 5 mg PO DAILY PRN PRN Reason: Constipation Last Admin: 04/15/17 17:15 Dose: 5 mg Cholecalciferol (Vitamin D3) 2,000 units PO DAILY [facility] Last Admin: 04/15/17 09:20 Dose: 2,000 units Fexofenadine HCl (Sangeeta) 180 mg PO DAILY [facility] Last Admin: 04/15/17 09:18 Dose: 180 mg Fluticasone Propionate (Flonase) 0 gm NASBOTH DAILY [facility] Last Admin: 04/15/17 09:19 Dose: 2 spray Hydroxyzine HCl (Atarax) 25 mg PO BEDTIME PRN PRN Reason: Insomnia Last Admin: 04/15/17 23:19 Dose: 25 mg Levofloxacin (Levaquin) 250 mg PO Q24H [facility] Levothyroxine Sodium (Levothyroxine) 150 mcg PO 0600 [facility] Last Admin: 04/16/17 05:53 Dose: 150 mcg Metoprolol Tartrate (Lopressor) 50 mg PO BID [facility] Last Admin: 04/15/17 20:51 Dose: 50 mg Mometasone Furoate/Formoterol Fumar (Dulera 200-5 Mcg) 0 puff IH BID [facility] Last Admin: 04/15/17 20:50 Dose: 2 puff Multivitamins/Minerals (Vitamins And Minerals) 1 tab PO DAILY [facility] Last Admin: 04/15/17 09:20 Dose: 1 tab Mycophenolate Mofetil [Cellcept] 250mg *Ptom 500 mg PO BID [facility] Last Admin: 04/15/17 20:52 Dose: 500 mg Ondansetron HCl (Zofran Odt) 4 mg PO Q4H PRN PRN Reason: nausea, able to take PO Pantoprazole Sodium (Protonix) 40 mg PO 0600 [facility] Last Admin: 04/16/17 05:53 Dose: 40 mg Prednisone (Prednisone) 60 mg PO DAILY [facility] Last Admin: 04/15/17 11:08 Dose: 60 mg Simvastatin (Zocor) 5 mg PO BEDTIME [facility] Last Admin: 04/15/17 20:53 Dose: 5 mg Sodium Chloride (Saline Flush) 10 ml FLUSH ASDIRECTED PRN PRN Reason: Keep Vein Open Last Admin: 04/11/17 21:57 Dose: 10 ml Terazosin HCl (Hytrin) 10 mg PO BEDTIME [facility] Last Admin: 04/15/17 20:51 Dose: 10 mg Tiotropium [place] (Spiriva Handihaler) 0 mcg INH DAILY [facility] Last Admin: 04/15/17 09:20 Dose: 1 inh Torsemide (Demadex) 20 mg PO DAILY [facility] Last Admin: 04/15/17 09:19 Dose: 20 mg Warfarin Sodium (Coumadin Sliding Scale) 1 each PO ASDIRECTED [facility] Warfarin Sodium (Coumadin) 2.5 mg PO 1600 [facility] Last Admin: 04/14/17 16:31 Dose: 2.5 mg Discontinued Medications Digoxin (Lanoxin) 125 mcg IVPUSH ONETIME ONE Stop: 04/11/17 21:14 Last Admin: 04/11/17 21:46 Dose: 125 mcg Fluticasone Propionate (Flonase) 0 gm NASBOTH DAILY [facility] Last Admin: 04/14/17 09:43 Dose: 2 spray Furosemide (Lasix) 40 mg IVPUSH NOW ONE Stop: 04/11/17 18:05 Last Admin: 04/11/17 19:41 Dose: 40 mg Furosemide (Lasix) 40 mg PO BIDDIURETIC [facility] Last Admin: 04/12/17 12:26 Dose: Not Given Levofloxacin/Dextrose 500 mg/ (Premix) 100 mls @ 100 mls/hr IV Q24H [facility] Last Admin: 04/14/17 16:29 Dose: 100 mls/hr Sodium Chloride (Normal Saline) 250 mls @ 0 mls/hr IV ASDIRECTED PRN; KVO PRN Reason: USE WITH ANTIBIOTIC Last Admin: 04/12/17 16:04 Dose: 50 mls/hr Iopamidol (Isovue-370 (76%)) 75 ml IV ONETIME ONE Stop: 04/12/17 10:20 Last Admin: 04/12/17 11:03 Dose: 59 ml Levofloxacin (Levaquin) 500 mg PO Q24H [facility] Stop: 04/15/17 16:01 Last Admin: 04/15/17 16:28 Dose: 500 mg Methylprednisolone Sodium Succinate (Solu-Medrol) 125 mg IVPUSH DAILY [facility] Methylprednisolone Sodium Succinate (Solu-Medrol) Confirm Administered Dose 125 mg .ROUTE .STK-MED ONE Stop: 04/14/17 09:57 Last Admin: 04/14/17 13:28 Dose: Not Given Methylprednisolone Sodium Succinate (Solu-Medrol) 125 mg IVPUSH ONETIME ONE Stop: 04/14/17 10:27 Last Admin: 04/14/17 13:27 Dose: 125 mg Mometasone Furoate/Formoterol Fumar (Dulera 200-5 Mcg) 2 puff IH BID [facility] Last Admin: 04/11/17 20:55 Dose: 2 puff Mometasone Furoate/Formoterol Fumar (Dulera 200-5 Mcg) 0 puff IH BID [facility] Nitroglycerin (Nitro-Dur 0.1 Mg/Hr) 0.1 mg TRDERM ONETIME ONE Stop: 04/11/17 18:08 Last Admin: 04/11/17 19:39 Dose: 0.1 mg Prednisone (Prednisone) 20 mg PO BIDMEALS [facility] Last Admin: 04/12/17 12:26 Dose: Not Given Rivaroxaban (Xarelto) 20 mg PO DAILY [facility] Last Admin: 04/12/17 12:27 Dose: Not Given Simvastatin (Zocor) 5 mg PO BEDTIME [facility] Last Admin: 04/11/17 21:00 Dose: 5 mg Simvastatin (Zocor) Confirm Administered Dose 10 mg .ROUTE .STK-MED ONE Stop: 04/11/17 20:51 Last Admin: 04/11/17 20:54 Dose: Not Given Torsemide (Demadex) 20 mg PO Q48H [facility] Last Admin: 04/14/17 09:12 Dose: 20 mg Warfarin Sodium (Coumadin) 4 mg PO ONETIME ONE Stop: 04/12/17 16:01 Last Admin: 04/12/17 16:00 Dose: 4 mg *Q Meaningful Use (DIS) - VTE *Q VTE Criteria *Q: - Stroke *Q Stroke Criteria *Q: - AMI *Q AMI Criteria *Q:
[2017-04-16 08:13] VITALS: BP 127/82
--- NOTE | 2017-04-16 08:56 | CR ---
INDICATION: Recheck pneumonia. CHEST: PA and lateral views of the chest, 04/15/2017, were compared with 2016, again revealing bibasilar pleuroparenchymal changes, as well as infiltration in the left upper and middle lung beyer. Findings would be compatible with bibasilar pneumonia and pleuritis and possibly pneumonia in the left upper and middle lung beyer, although the appearance may also be on the basis of, at least partially, pulmonary fibrosis and/or chronic inflammatory disease. Findings should be correlated clinically in that regard. If older comparison chest x-rays are available, they may be helpful. There is a previous CT of the chest from 02/01/2017 which showed infiltration in the posterior right upper lobe, as well as the left upper lobe, but to a lesser extent on the previous CT than on the current images by chest x-ray. Findings compatible with emphysematous changes are again noted. Somewhat diminished bone density is also suggested, compatible with osteoporosis. The heart appeared enlarged. The aorta is tortuous and calcified in the arch and descending portion. Overlying snap is seen. IMPRESSION: Overall increasing pneumonia and pleuritis suggested. The amount of pleural fluid appears to be significantly increased on the right and only slightly increased on the left, as noted on the lateral view. MTDD
[2017-04-16] MEDS ORDERED: Levofloxacin 250 MG Tab PO SCH (16:00)
== END 2017-04-16 08:18 | disposition swing bed (61) | DRG 194 ==
LOC: FB.MS 14:48
PROVIDERS: ADMIT Family Medicine; ATTEND Family Medicine
DX: J18.9 Pneumonia, unspecified organism (principal); E87.1 Hypo-osmolality and hyponatremia; C34.91 Malignant neoplasm of unspecified part of right bronchus or lung; J44.9 Chronic obstructive pulmonary disease, unspecified; I10 Essential (primary) hypertension; Z51.5 Encounter for palliative care; Z66 Do not resuscitate; Z87.891 Personal history of nicotine dependence; Z85.118 Personal history of other malignant neoplasm of bronchus and lung; I25.2 Old myocardial infarction; E03.9 Hypothyroidism, unspecified; Z86.73 Personal history of transient ischemic attack (TIA), and cerebral infarction without residual deficits; I48.2 Chronic atrial fibrillation; Z79.01 Long term (current) use of anticoagulants; Z85.46 Personal history of malignant neoplasm of prostate; M19.90 Unspecified osteoarthritis, unspecified site; R74.8 Abnormal levels of other serum enzymes; Z79.52 Long term (current) use of systemic steroids; M10.9 Gout, unspecified; H35.30 Unspecified macular degeneration; Z88.1 Allergy status to other antibiotic agents; Z91.048 Other nonmedicinal substance allergy status
CPT/HCPCS: 36415; 36600; 71020; 71270; 80053; 81001; 82803; 84443; 84484; 85025; 85610; 87040; 93005; 94640-76; 97110-GP; 97116-GP; 97161-GP; 97166-GO; A9270; A9270-GY; J1160; J1940; J1956; J2930; J7050; J7620; Q9967

== ENCOUNTER 2017-04-16 08:12 | Inpatient (IN) | payer MEDICARE, OTHER ==
[2017-04-16] MEDS ORDERED: ALPRAZolam 0.25 MG Tab PO PRN (08:21)
[2017-04-16] MEDS ORDERED: Pantoprazole 40 MG Tab.CR PO PRN (08:21)
[2017-04-16] MEDS ORDERED: Albuterol 8 GM Inhaler INH PRN (08:21)
[2017-04-16] MEDS ORDERED: Warfarin 4 MG Tab PO SCH (08:30)
[2017-04-16] MEDS ORDERED: Warfarin Sliding Scale PO SCH (08:45)
[2017-04-16] MEDS ORDERED: predniSONE 20 MG Tab PO SCH (09:00)
[2017-04-16] MEDS ORDERED: Non-Formulary Medication 1 Each (Krill Oil [Krill Oil] 500 MG) PO SCH (09:00)
[2017-04-16] MEDS ORDERED: Non-Formulary Medication 1 Each (Budesonide/Formoterol [Symbicort 160-4.5 Mcg] 2 INH) IH SCH (09:00)
[2017-04-16] MEDS ORDERED: hydrOXYzine HCl 25 MG Tab PO PRN (09:26)
[2017-04-16] MEDS: Torsemide 20 MG Tab PO SCH (09:35)
[2017-04-16] MEDS: Fluticasone Propionate Nasal Spray 16 GM Bottle NASBOTH SCH (09:36)
[2017-04-16] MEDS: Formoterol/Mometasone 200-5 MCG 8.8 GM Inhaler IH SCH ×2 (09:36→20:52)
[2017-04-16] MEDS: Metoprolol Tartrate 50 MG Tab PO SCH ×2 (09:37→20:54)
[2017-04-16] MEDS: Tiotropium Inhaler 18 MCG Inhalation Powder Cap Kit of 5 INH SCH (09:38)
[2017-04-16] MEDS: MYCOPHENOLATE MOFETIL 500 MG PO SCH ×2 (09:38→20:54)
[2017-04-16] MEDS: predniSONE 10 MG Tab PO SCH (09:38)
[2017-04-16] MEDS: Cholecalciferol (Vitamin D3) 1,000 Unit Tab PO SCH (09:39)
[2017-04-16] MEDS: Allopurinol 100 MG Tab PO SCH (09:39)
[2017-04-16] MEDS: Multivitamins,Therapeutic Tab PO SCH (09:39)
[2017-04-16] MEDS: Lactobacillus Rhamnosus GG (Probiotic) Cap PO SCH (09:40)
[2017-04-16] MEDS: Albuterol/Ipratropium 3.0-0.5 MG/3 ML Neb Soln NEB PRN ×2 (13:28→20:57)
[2017-04-16] MEDS: Levofloxacin 250 MG Tab PO SCH (15:38)
[2017-04-16] MEDS: Terazosin 5 MG Cap PO SCH (20:53)
[2017-04-16] MEDS: ALPRAZolam 0.25 MG Tab PO SCH (20:55)
[2017-04-16] MEDS: Simvastatin 10 MG Tab PO SCH (20:56)
[2017-04-17] MEDS: Levothyroxine 150 MCG Tab PO SCH (06:07)
[2017-04-17] MEDS: Albuterol/Ipratropium 3.0-0.5 MG/3 ML Neb Soln NEB PRN ×2 (08:00→21:00)
[2017-04-17] MEDS: Fluticasone Propionate Nasal Spray 16 GM Bottle NASBOTH SCH (08:22)
[2017-04-17] MEDS: Tiotropium Inhaler 18 MCG Inhalation Powder Cap Kit of 5 INH SCH (08:25)
[2017-04-17] MEDS: Formoterol/Mometasone 200-5 MCG 8.8 GM Inhaler IH SCH ×2 (08:26→20:25)
[2017-04-17] MEDS: Torsemide 20 MG Tab PO SCH (08:26)
[2017-04-17] MEDS: Metoprolol Tartrate 50 MG Tab PO SCH ×2 (08:27→20:29)
[2017-04-17] MEDS: predniSONE 10 MG Tab PO SCH (08:28)
[2017-04-17] MEDS: MYCOPHENOLATE MOFETIL 500 MG PO SCH ×2 (08:28→20:29)
[2017-04-17] MEDS: Multivitamins,Therapeutic Tab PO SCH (08:30)
[2017-04-17] MEDS: Lactobacillus Rhamnosus GG (Probiotic) Cap PO SCH (08:30)
[2017-04-17] MEDS: Allopurinol 100 MG Tab PO SCH (08:30)
[2017-04-17] MEDS: Cholecalciferol (Vitamin D3) 1,000 Unit Tab PO SCH (08:30)
[2017-04-17] MEDS: Acetaminophen 325 MG Tab PO PRN (10:12)
[2017-04-17] MEDS: Levofloxacin 250 MG Tab PO SCH (16:22)
[2017-04-17] MEDS: Terazosin 5 MG Cap PO SCH (20:26)
[2017-04-17] MEDS: Simvastatin 10 MG Tab PO SCH (20:30)
[2017-04-17] MEDS: ALPRAZolam 0.25 MG Tab PO SCH (20:35)
[2017-04-18] MEDS: Acetaminophen 325 MG Tab PO PRN (03:13)
[2017-04-18] MEDS: Levothyroxine 150 MCG Tab PO SCH (06:03)
--- NOTE | 2017-04-18 07:20 | PCM.PN ---
- General Info Date of Service: 04/18/17 Admission Dx/Problem (Free Text): Patient states that he is doing great. He is walking with a walker. He denies shortness of breath fevers, chills, palpitations, cough. - Patient Data Vitals - Most Recent: Last Vital Signs Temp 97.6 F 04/17/17 08:00 Pulse 87 04/17/17 20:29 Resp 18 04/17/17 08:00 BP 126/68 04/17/17 20:29 Pulse Ox 95 04/17/17 08:05 Weight - Most Recent: 157 lb 6.4 oz Lab Results Last 24 Hours: Laboratory Results - last 24 hr 04/17/17 04/18/17 Range/Units 06:45 06:20 PT 35.6 H* 24.8 H (8.7-11.1) INR 3.43 H 2.42 H (0.89-1.13) Med Orders - Current: Current Medications Acetaminophen (Tylenol) 650 mg PO Q4H PRN PRN Reason: PAIN/FEVER Last Admin: 04/18/17 03:13 Dose: 650 mg Albuterol (Ventolin Hfa) 0 gm INH Q4H PRN PRN Reason: Dyspnea Last Admin: 04/17/17 04:12 Dose: 2 puff Albuterol/Ipratropium (Duoneb 3.0-0.5 Mg/3 Ml) 3 ml NEB Q4H PRN PRN Reason: Wheezing Last Admin: 04/17/17 21:00 Dose: 3 ml Allopurinol (Zyloprim) 100 mg PO DAILY [facility] Last Admin: 04/17/17 08:30 Dose: 100 mg Alprazolam (Xanax) 0.125 mg PO BEDTIME [facility] Last Admin: 04/17/17 20:35 Dose: 0.125 mg Alprazolam (Xanax) 0.125 mg PO BID PRN PRN Reason: Anxiety Cholecalciferol (Vitamin D3) 2,000 units PO DAILY [facility] Last Admin: 04/17/17 08:30 Dose: 2,000 units Fexofenadine HCl (Sangeeta) 180 mg PO DAILY [facility] Last Admin: 04/17/17 08:25 Dose: 180 mg Fluticasone Propionate (Flonase) 0 gm NASBOTH DAILY [facility] Last Admin: 04/17/17 08:22 Dose: 2 sprays Hydroxyzine HCl (Atarax) 25 mg PO BEDTIME PRN PRN Reason: INSOMNIA Last Admin: 04/16/17 20:56 Dose: 25 mg Lactobacillus Rhamnosus (Culturelle) 1 cap PO DAILY [facility] Last Admin: 04/17/17 08:30 Dose: 1 cap Levofloxacin (Levaquin) 250 mg PO Q24H [facility] Stop: 04/23/17 16:01 Last Admin: 04/17/17 16:22 Dose: 250 mg Levothyroxine Sodium (Levothyroxine) 150 mcg PO 0600 [facility] Last Admin: 04/18/17 06:03 Dose: 150 mcg Metoprolol Tartrate (Lopressor) 50 mg PO BID [facility] Last Admin: 04/17/17 20:29 Dose: 50 mg Mometasone Furoate/Formoterol Fumar (Dulera 200-5 Mcg) 0 puff IH BID [facility] Last Admin: 04/17/17 20:25 Dose: 2 puff Multivitamins (Thera) 1 each PO DAILY [facility] Last Admin: 04/17/17 08:30 Dose: 1 each Non-Formulary Medication (Mycophenolate Mofetil [Cellcept]) 500 mg PO BID [facility] Last Admin: 04/17/17 20:29 Dose: 500 mg Pantoprazole Sodium (Protonix) 40 mg PO DAILY PRN PRN Reason: Heartburn Prednisone (Prednisone) 60 mg PO DAILY [facility] PRN Reason: Taper Stop: 04/30/17 08:59 Last Admin: 04/17/17 08:28 Dose: 60 mg Simvastatin (Zocor) 5 mg PO BEDTIME [facility] Last Admin: 04/17/17 20:30 Dose: 5 mg Terazosin HCl (Hytrin) 10 mg PO BEDTIME [facility] Last Admin: 04/17/17 20:26 Dose: 10 mg Tiotropium [place] (Spiriva Handihaler) 18 mcg INH DAILY [facility] Last Admin: 04/17/17 08:25 Dose: 1 cap Torsemide (Demadex) 20 mg PO DAILY [facility] Last Admin: 04/17/17 08:26 Dose: 20 mg Warfarin Sodium (Coumadin Sliding Scale) 1 each PO .PHARMACYTODOSE [facility] Discontinued Medications Non-Formulary Medication (Budesonide/Formoterol [Symbicort 160-4.5 Mcg]) 2 inh IH BID [facility] Non-Formulary Medication (Krill Oil [Krill Oil]) 500 mg PO DAILY [facility] Last Admin: 04/17/17 08:31 Dose: Not Given Warfarin Sodium (Coumadin) 2.5 mg PO MO [facility] Warfarin Sodium (Coumadin) 4 mg PO SUTUWETHFRSA [facility] Last Admin: 04/17/17 08:31 Dose: Not Given - Exam General: Alert, Oriented, Cooperative Lungs: Clear to Auscultation, Normal Respiratory Effort Cardiovascular: Regular Rate, Irregular Rhythm. No: Tachycardia Extremities: Pedal Edema - Problem List & Annotations (1) CAP (community acquired pneumonia) SNOMED Code(s): 457948359 Code(s): J18.9 - PNEUMONIA, UNSPECIFIED ORGANISM Status: Acute Priority: High Current Visit: Yes (2) COPD (chronic obstructive pulmonary disease) SNOMED Code(s): 31066763 Code(s): J44.9 - CHRONIC OBSTRUCTIVE PULMONARY DISEASE, UNSPECIFIED Status : Acute Priority: High Current Visit: Yes Qualifiers: COPD type: COPD with acute exacerbation Qualified Code(s): J44.1 - Chronic obstructive pulmonary disease with (acute) exacerbation (3) Rapid atrial fibrillation SNOMED Code(s): 447759461 Code(s): I48.91 - UNSPECIFIED ATRIAL FIBRILLATION Status: Acute Priority : High Current Visit: Yes - Problem List Review Problem List Initiated/Reviewed/Updated: Yes - My Orders Last 24 Hours: My Active Orders 04/19/17 06:00 INR,PT,PROTHROMBIN TIME [COAG] DAILY 04/20/17 06:00 INR,PT,PROTHROMBIN TIME [COAG] DAILY 04/21/17 06:00 INR,PT,PROTHROMBIN TIME [COAG] DAILY 04/22/17 06:00 INR,PT,PROTHROMBIN TIME [COAG] DAILY - Plan Plan:: Discharge to home. Patient deferred home health, PT/OT. Have him follow-up with Dr. Fuentes 7-10 days with a chest x-ray.
--- NOTE | 2017-04-18 07:26 | PCM.DCSUM1 ---
Discharge Summary - Hospital Course Free Text/Narrative:: Swing bed course-patient did well and is able to walk with his walker without oxygen. He denies fevers, chills, cough. He had leg swelling is better when they wrapped his legs. He will be discharged on Levaquin and prednisone taper. Brief History: 86-year-old male patient with rapid atrial fib, pneumonia in the left side COPD was admitted to swing bed with his normal medicines, Levaquin and prednisone taper. Did well and wanted to go home after 2 days. - Discharge Data Discharge Date: 04/18/17 Discharge Disposition: Home, Self-Care 01 Condition: Good - Discharge Diagnosis/Problem(s) (1) CAP (community acquired pneumonia) SNOMED Code(s): 331329521 ICD Code: J18.9 - PNEUMONIA, UNSPECIFIED ORGANISM Status: Acute Priority : High Current Visit: Yes (2) COPD (chronic obstructive pulmonary disease) SNOMED Code(s): 55843779 ICD Code: J44.9 - CHRONIC OBSTRUCTIVE PULMONARY DISEASE, UNSPECIFIED Status : Acute Priority: High Current Visit: Yes Qualifiers: COPD type: COPD with acute exacerbation Qualified Code(s): J44.1 - Chronic obstructive pulmonary disease with (acute) exacerbation (3) Rapid atrial fibrillation SNOMED Code(s): 698859614 ICD Code: I48.91 - UNSPECIFIED ATRIAL FIBRILLATION Status: Acute Priority : High Current Visit: Yes - Patient Summary/Data Consults: Consultations 04/16/17 08:18 OT Evaluation and Treatment [CONS] Routine Please Evaluate and Treat. OT Reason for Consult: Strengthening This query below is only for informational purposes and is not editable. PT Evaluation and Treatment [CONS] Routine Please Evaluate and Treat. PT Reason for Consult: Ambulation This query below is only for informational purposes and is not editable. - Patient Instructions Diet: Regular Diet as Tolerated Activity: As Tolerated Driving: May Drive Today Showering/Bathing: May Shower Other/Special Instructions: 1. Recheck with Dr. Fuentes in 10 days with a chest x-ray before the visit. - Discharge Plan Prescriptions/Med Rec: Levofloxacin [Levaquin] 250 mg PO Q24H #8 tablet predniSONE 60 mg PO DAILY #0 tablet Home Medications: Home Meds ALPRAZolam [Xanax] 0.125 mg PO BEDTIME 10/24/13 [History] Budesonide/Formoterol [Symbicort 160-4.5 MCG] 2 inh IH BID 10/24/13 [History] Fexofenadine HCl [Sangeeta] 180 mg PO DAILY 10/24/13 [History] Levothyroxine 150 mcg PO DAILY 10/24/13 [History] Omeprazole 20 mg PO DAILY PRN 10/24/13 [History] Simvastatin [Zocor] 5 mg PO BEDTIME 10/24/13 [History] Terazosin [Hytrin] 10 mg PO BEDTIME 10/24/13 [History] Albuterol Sulfate [Proair Respiclick] 2 inh IH Q4HR PRN 02/02/15 [History] Cholecalciferol (Vitamin D3) [Vitamin D3] 2,000 units PO DAILY 02/02/15 [History ] Krill Oil 500 mg PO DAILY 02/02/15 [History] L.acidoph,Paracasei, B.lactis [Probiotic] 1 each PO DAILY 02/02/15 [History] Mycophenolate Mofetil [Cellcept] 500 mg PO BID 12/08/16 [History] ALPRAZolam [Xanax] 0.125 mg PO BID PRN #15 tablet 12/12/16 [Rx] Acetaminophen [Tylenol] 650 mg PO Q4H PRN #15 tablet 12/12/16 [Rx] Albuterol/Ipratropium [DuoNeb 3.0-0.5 MG/3 ML] 3 ml NEB Q4H PRN #60 neb [Rx] Allopurinol [Zyloprim] 100 mg PO DAILY 04/12/17 [History] Fluticasone Propionate [Flonase Allergy Relief] 2 spray NASBOTH DAILY 04/12/17 [ History] Multivitamin-Min/Iron/FA/Vit K [Multi-Day Plus Minerals Tablet] 1 each PO DAILY 04/12/17 [History] Tiotropium [Spiriva Handihaler] 1 puff INH DAILY 04/12/17 [History] Torsemide 50 mg PO Q48H 04/12/17 [History] Warfarin [Coumadin] 2.5 mg PO MO 04/12/17 [History] Warfarin [Coumadin] 4 mg PO SUTUWETHFRSA 04/12/17 [History] Levofloxacin [Levaquin] 250 mg PO Q24H #0 tablet 04/16/17 [Rx] Metoprolol Tartrate [Lopressor] 50 mg PO BID #60 tablet 04/16/17 [Rx] Torsemide [Demadex] 20 mg PO DAILY #60 tablet 04/16/17 [Rx] Levofloxacin [Levaquin] 250 mg PO Q24H #8 tablet 04/18/17 [Rx] Prednisone [IJD: predniSONE] 20 mg PO DAILY #12 tablet 04/18/17 [Rx] predniSONE 60 mg PO DAILY #0 tablet 04/18/17 [Rx] - Discharge Summary/Plan Comment DC Time >30 min.: No - Patient Data Vitals - Most Recent: Last Vital Signs Temp 97.6 F 04/17/17 08:00 Pulse 87 04/17/17 20:29 Resp 18 04/17/17 08:00 BP 126/68 04/17/17 20:29 Pulse Ox 95 04/17/17 08:05 Weight - Most Recent: 157 lb 6.4 oz Lab Results - Last 24 hrs: Laboratory Results - last 24 hr 04/18/17 Range/Units 06:20 PT 24.8 H (8.7-11.1) INR 2.42 H (0.89-1.13) Med Orders - Current: Current Medications Acetaminophen (Tylenol) 650 mg PO Q4H PRN PRN Reason: PAIN/FEVER Last Admin: 04/18/17 03:13 Dose: 650 mg Albuterol (Ventolin Hfa) 0 gm INH Q4H PRN PRN Reason: Dyspnea Last Admin: 04/17/17 04:12 Dose: 2 puff Albuterol/Ipratropium (Duoneb 3.0-0.5 Mg/3 Ml) 3 ml NEB Q4H PRN PRN Reason: Wheezing Last Admin: 04/17/17 21:00 Dose: 3 ml Allopurinol (Zyloprim) 100 mg PO DAILY [facility] Last Admin: 04/17/17 08:30 Dose: 100 mg Alprazolam (Xanax) 0.125 mg PO BEDTIME [facility] Last Admin: 04/17/17 20:35 Dose: 0.125 mg Alprazolam (Xanax) 0.125 mg PO BID PRN PRN Reason: Anxiety Cholecalciferol (Vitamin D3) 2,000 units PO DAILY [facility] Last Admin: 04/17/17 08:30 Dose: 2,000 units Fexofenadine HCl (Sangeeta) 180 mg PO DAILY [facility] Last Admin: 04/17/17 08:25 Dose: 180 mg Fluticasone Propionate (Flonase) 0 gm NASBOTH DAILY [facility] Last Admin: 04/17/17 08:22 Dose: 2 sprays Hydroxyzine HCl (Atarax) 25 mg PO BEDTIME PRN PRN Reason: INSOMNIA Last Admin: 04/16/17 20:56 Dose: 25 mg Lactobacillus Rhamnosus (Culturelle) 1 cap PO DAILY [facility] Last Admin: 04/17/17 08:30 Dose: 1 cap Levofloxacin (Levaquin) 250 mg PO Q24H [facility] Stop: 04/23/17 16:01 Last Admin: 04/17/17 16:22 Dose: 250 mg Levothyroxine Sodium (Levothyroxine) 150 mcg PO 0600 [facility] Last Admin: 04/18/17 06:03 Dose: 150 mcg Metoprolol Tartrate (Lopressor) 50 mg PO BID [facility] Last Admin: 04/17/17 20:29 Dose: 50 mg Mometasone Furoate/Formoterol Fumar (Dulera 200-5 Mcg) 0 puff IH BID [facility] Last Admin: 04/17/17 20:25 Dose: 2 puff Multivitamins (Thera) 1 each PO DAILY [facility] Last Admin: 04/17/17 08:30 Dose: 1 each Non-Formulary Medication (Mycophenolate Mofetil [Cellcept]) 500 mg PO BID [facility] Last Admin: 04/17/17 20:29 Dose: 500 mg Pantoprazole Sodium (Protonix) 40 mg PO DAILY PRN PRN Reason: Heartburn Prednisone (Prednisone) 60 mg PO DAILY [facility] PRN Reason: Taper Stop: 04/30/17 08:59 Last Admin: 04/17/17 08:28 Dose: 60 mg Simvastatin (Zocor) 5 mg PO BEDTIME [facility] Last Admin: 04/17/17 20:30 Dose: 5 mg Terazosin HCl (Hytrin) 10 mg PO BEDTIME [facility] Last Admin: 04/17/17 20:26 Dose: 10 mg Tiotropium [place] (Spiriva Handihaler) 18 mcg INH DAILY [facility] Last Admin: 04/17/17 08:25 Dose: 1 cap Torsemide (Demadex) 20 mg PO DAILY [facility] Last Admin: 04/17/17 08:26 Dose: 20 mg Warfarin Sodium (Coumadin Sliding Scale) 1 each PO .PHARMACYTODOSE [facility] Discontinued Medications Non-Formulary Medication (Budesonide/Formoterol [Symbicort 160-4.5 Mcg]) 2 inh IH BID [facility] Non-Formulary Medication (Krill Oil [Krill Oil]) 500 mg PO DAILY [facility] Last Admin: 04/17/17 08:31 Dose: Not Given Warfarin Sodium (Coumadin) 2.5 mg PO MO [facility] Warfarin Sodium (Coumadin) 4 mg PO SUTUWETHFRSA [facility] Last Admin: 04/17/17 08:31 Dose: Not Given *Q Meaningful Use (DIS) - VTE *Q VTE Criteria *Q: - Stroke *Q Stroke Criteria *Q: - AMI *Q AMI Criteria *Q:
[2017-04-18] MEDS: Albuterol/Ipratropium 3.0-0.5 MG/3 ML Neb Soln NEB PRN (08:29)
[2017-04-18] MEDS: Lactobacillus Rhamnosus GG (Probiotic) Cap PO SCH (09:12)
[2017-04-18] MEDS: Formoterol/Mometasone 200-5 MCG 8.8 GM Inhaler IH SCH (09:13)
[2017-04-18] MEDS: Torsemide 20 MG Tab PO SCH (09:13)
[2017-04-18] MEDS: Fluticasone Propionate Nasal Spray 16 GM Bottle NASBOTH SCH (09:13)
[2017-04-18] MEDS: MYCOPHENOLATE MOFETIL 500 MG PO SCH (09:14)
[2017-04-18] MEDS: Metoprolol Tartrate 50 MG Tab PO SCH (09:14)
[2017-04-18] MEDS: predniSONE 10 MG Tab PO SCH (09:15)
[2017-04-18] MEDS: Tiotropium Inhaler 18 MCG Inhalation Powder Cap Kit of 5 INH SCH (09:15)
[2017-04-18] MEDS: Multivitamins,Therapeutic Tab PO SCH (09:16)
[2017-04-18] MEDS: Cholecalciferol (Vitamin D3) 1,000 Unit Tab PO SCH (09:16)
[2017-04-18] MEDS: Allopurinol 100 MG Tab PO SCH (09:16)
[2017-04-18 09:19] VITALS: BP 139/76
[2017-04-18] MEDS ORDERED: Warfarin 2.5 MG Tab PO ONE (16:00)
[2017-04-22] MEDS ORDERED: Warfarin 2 MG Tab PO SCH (08:21)
== END 2017-04-18 14:05 | disposition home or self-care (01) | DRG 947 ==
LOC: FB.MS 08:12
PROVIDERS: ADMIT Family Medicine; ATTEND Family Medicine
DX: R53.1 Weakness (principal); J18.9 Pneumonia, unspecified organism; C34.91 Malignant neoplasm of unspecified part of right bronchus or lung; Z51.5 Encounter for palliative care; J44.9 Chronic obstructive pulmonary disease, unspecified; Z79.01 Long term (current) use of anticoagulants; Z79.52 Long term (current) use of systemic steroids; I48.2 Chronic atrial fibrillation; I25.2 Old myocardial infarction; Z86.73 Personal history of transient ischemic attack (TIA), and cerebral infarction without residual deficits; Z85.46 Personal history of malignant neoplasm of prostate; Z85.118 Personal history of other malignant neoplasm of bronchus and lung
CPT/HCPCS: 36415; 85610; 94640-76; 97110-GP; 97116-GP; 97530-GP; A9270-GY; J7620

== ENCOUNTER 2017-05-28 20:01 | Inpatient (IN) | payer MEDICARE, OTHER ==
[2017-05-28] MEDS: Sodium Chloride 0.9% 10 ML Syringe FLUSH PRN (20:48)
[2017-05-28] MEDS ORDERED: Metolazone 2.5 MG Tab PO ONE (20:54)
[2017-05-28] MEDS ORDERED: Morphine 2 MG/ML Syringe IVPUSH PRN (20:54)
[2017-05-28] MEDS ORDERED: Furosemide 40 MG/4 ML VIAL IVPUSH ONE (21:03)
[2017-05-28] MEDS: Albuterol/Ipratropium 3.0-0.5 MG/3 ML Neb Soln NEB SCH (22:11)
[2017-05-28] MEDS ORDERED: ALPRAZolam 0.25 MG Tab PO PRN (22:43)
[2017-05-28] MEDS: Acetaminophen 325 MG Tab PO PRN (23:02)
--- NOTE | 2017-05-29 03:15 | ER ---
DATE SEEN: 05/28/2017 CHIEF COMPLAINT: Shortness of breath. HISTORY OF PRESENT ILLNESS: This is an 86-year-old male, who complains of shortness of breath lasting two weeks or more. He has a history of lung cancer, metastatic COPD, stable coronary artery disease, and CHF with a recent echocardiogram showing ejection fraction 40%. He also complains of weight gain and leg swelling. He has no fever or chest pain. CURRENT MEDICATIONS: Reviewed. ALLERGIES: Amoxicillin. SOCIAL HISTORY: Does not smoke. PHYSICAL EXAMINATION: GENERAL: He is not in any cardiopulmonary distress. VITAL SIGNS: He has a pulse of 70 beats per minute, irregular, a temp of 98.5, blood pressure is normal, respiratory rate is 30, oxygenation 95% on room air. ENT: Negative. NECK: Supple. EXTREMITIES: Marked peripheral edema. RESPIRATORY SYSTEM: Coarse crepitations bilaterally. ABDOMEN: Soft. LABORATORY DATA: BNP more than 1000. White cell count 12.4, hemoglobin 10.4. Creatinine is 1.4. Troponin is pending. EKG showed atrial fibrillation. A chest x-ray showed infiltrates worse on the right and pleural effusion on the left, new. IMPRESSION: Shortness of breath. DIFFERENTIAL DIAGNOSIS: Pneumonia, CHF, metastatic lung cancer, COPD. PLAN: We will admit the patient for diuresis. Repeat lab work in the morning. He is a full code. TIME SEEN: 9 p.m. /[id number] [place]AC[place]
[2017-05-29] MEDS: Albuterol/Ipratropium 3.0-0.5 MG/3 ML Neb Soln NEB SCH ×4 (08:01→20:57)
[2017-05-29] MEDS ORDERED: Acetaminophen 325 MG Tab PO PRN (08:52)
[2017-05-29] MEDS ORDERED: ALPRAZolam 0.25 MG Tab PO PRN (08:52)
[2017-05-29] MEDS ORDERED: Non-Formulary Medication 1 Each (Krill Oil [Krill Oil] 500 MG) PO SCH (09:00)
[2017-05-29] MEDS ORDERED: Metoprolol Tartrate 50 MG Tab PO SCH (09:00)
--- NOTE | 2017-05-29 09:08 | PCM.HP ---
H&P History of Present Illness - General Date of Service: 05/29/17 Admit Problem/Dx: Admission Diagnosis/Problem Admission Diagnosis/Problem Shortness of breath Source of Information: Patient History Limitations: Reports: No Limitations - History of Present Illness Initial Comments - Free Text/Narative: This is an 86-year-old male patient with a history of CHF, metastatic lung disease. He states over the last 6 months he is been more short of breath. He was hospitalized in the last few months for pneumonia. He states his had pneumonia twice in the last 6 months. Last 2 weeks she's been using more short of breath little bit every day. He states she's the point where he cannot walk across the room. He denies PND or orthopnea. He denies fevers, chills, nasal congestion, sore throat or cough. He has leg swelling and that's worse. - Related Data Allergies/Adverse Reactions: Allergies Allergy/AdvReac Type Severity Reaction Status Date / Time amoxicillin [Amoxicillin] Allergy Cannot Verified 05/28/17 20:12 Remember Home Medications: Home Meds Budesonide/Formoterol [Symbicort 160-4.5 MCG] 2 inh IH BID 10/24/13 [History] Omeprazole 20 mg PO DAILY PRN 10/24/13 [History] Simvastatin [Zocor] 5 mg PO BEDTIME 10/24/13 [History] Terazosin [Hytrin] 10 mg PO BEDTIME 10/24/13 [History] Albuterol Sulfate [Proair Respiclick] 2 inh IH Q4HR PRN 02/02/15 [History] Cholecalciferol (Vitamin D3) [Vitamin D3] 2,000 units PO DAILY 02/02/15 [History ] Krill Oil 500 mg PO DAILY 02/02/15 [History] Mycophenolate Mofetil [Cellcept] 500 mg PO BID 12/08/16 [History] ALPRAZolam [Xanax] 0.125 mg PO BID PRN #15 tablet 12/12/16 [Rx] Acetaminophen [Tylenol] 650 mg PO Q4H PRN #15 tablet 12/12/16 [Rx] Albuterol/Ipratropium [DuoNeb 3.0-0.5 MG/3 ML] 3 ml NEB Q4H PRN #60 neb [Rx] Allopurinol [Zyloprim] 100 mg PO DAILY 04/12/17 [History] Fluticasone Propionate [Flonase Allergy Relief] 2 spray NASBOTH DAILY 04/12/17 [ History] Multivitamin-Min/Iron/FA/Vit K [Multi-Day Plus Minerals Tablet] 1 each PO DAILY 04/12/17 [History] Tiotropium [Spiriva Handihaler] 1 puff INH DAILY 04/12/17 [History] Metoprolol Tartrate [Lopressor] 50 mg PO BID #60 tablet 04/16/17 [Rx] Warfarin [Coumadin] 2.5 mg PO DAILY #4 tablet 04/18/17 [Rx] Bumetanide [Bumex] 1 mg PO MOWEFR 05/29/17 [History] Past Medical History HEENT History: Reports: Cataract Cardiovascular History: Reports: Afib, High Cholesterol, Hypertension Other Cardiovascular History: FROST in 1992. Respiratory History: Reports: COPD, SOB, Other (See Below) Other Respiratory History: lung cancer Gastrointestinal History: Reports: Bowel Obstruction Genitourinary History: Reports: Prostate Disorder Other Genitourinary History: prostate cancer Musculoskeletal History: Reports: Arthritis, Back Pain, Chronic, Gout, Osteoarthritis Other Neuro History: history of myathenia gravis Endocrine/Metabolic History: Reports: Other (See Below) Other Endocrine/Metabolic History: on Levothyroxin for 30 years Oncologic (Cancer) History: Reports: Lung, Prostate - Infectious Disease History Infectious Disease History: Reports: Measles, Mumps - Past Surgical History Head Surgeries/Procedures: Reports: None Cardiovascular Surgical History: Reports: Aneurysm, Other (See Below) Respiratory Surgical History: Reports: Lung Biopsies, Other (See Below) Other Respiratory Surgeries/Procedures: right lung cancer GI Surgical History: Reports: Cholecystectomy, Colonoscopy, Hernia, Inguinal Male Surgical History: Reports: None Musculoskeletal Surgical History: Reports: None Oncologic Surgical History: Reports: None Social & Family History - Family History Family Medical History: Noncontributory Respiratory: Reports: COPD Musculoskeletal: Reports: Arthritis Oncologic: Reports: Leukemia, Liver - Tobacco Use Smoking Status *Q: Former Smoker Years of Tobacco use: 25 Packs/Tins Daily: 1 Used Tobacco, but Quit: Yes Month Tobacco Last Used: 06/1993 Second Hand Smoke Exposure: No - Caffeine Use Caffeine Use: Reports: Coffee Other Caffeine Use: about 2 cups per day - Alcohol Use Days Per Week of Alcohol Use: 7 Number of Drinks Per Day: 1 Total Drinks Per Week: 7 - Recreational Drug Use Recreational Drug Use: No H&P Review of Systems - Review of Systems: Review Of Systems: See Below General: Reports: Weakness, Fatigue, Decreased Appetite, Other (He does not weigh himself.). Denies: Fever, Chills, Night Sweats, Diaphoresis HEENT: Reports: No Symptoms Pulmonary: Reports: Shortness of Breath. Denies: Wheezing, Pleuritic Chest Pain , Cough, Sputum Cardiovascular: Reports: Edema. Denies: Chest Pain Gastrointestinal: Reports: No Symptoms Genitourinary: Reports: No Symptoms Musculoskeletal: Reports: No Symptoms Skin: Reports: No Symptoms Psychiatric: Reports: No Symptoms Neurological: Reports: No Symptoms Hematologic/Lymphatic: Reports: No Symptoms Immunologic: Reports: No Symptoms Exam - Exam Exam: See Below - Vital Signs Vital Signs: Last Vital Signs Temp 97.8 F 05/29/17 08:00 Pulse 92 05/29/17 08:00 Resp 22 H 05/29/17 08:00 BP 96/62 05/29/17 08:00 Pulse Ox 94 L 05/29/17 08:00 Weight: 174 lb 12.8 oz - Exam General: Alert, Oriented, Cooperative HEENT: PERRLA, Hearing Intact, Mucosa Moist & Arnold, Posterior Pharynx Clear, TMs Clear Neck: Supple, Trachea Midline Lungs: Normal Respiratory Effort, Decreased Breath Sounds (Left), Crackles Cardiovascular: Regular Rate, Irregular Rhythm. No: Systolic Murmur GI/Abdominal Exam: Normal Bowel Sounds, Soft, Non-Tender, No Distention Back Exam: Normal Inspection. No: Muscle Spasm Extremities: Pedal Edema (+4) Skin: Warm, Dry, Intact Neuro Extensive - Mental Status: Alert, Oriented x3, Normal Cognition, Other ( His affect is down because he was up all night urinating. He has not had a sleep.) - Patient Data Lab Results Last 24 hrs: Laboratory Results - last 24 hr 05/29/17 05/29/17 Range/Units 06:35 06:35 WBC 10.4 (4.5-12.0) X10-3/uL RBC 3.30 L (4.30-5.75) x10(6)uL Hgb 9.7 L (11.5-15.5) g/dL Hct 30.4 (30.0-51.3) % MCV 92.0 (80-96) fL MCH 29.3 (27.7-33.6) pg MCHC 31.9 L (32.2-35.4) g/dL RDW 17.7 H (11.5-15.5) % Plt Count 551 H (125-369) X10(3)uL MPV 8.1 (7.4-10.4) fL Add Manual Diff Yes Neutrophils % (Manual) 75 (46-82) % Lymphocytes % (Manual) 10 L (13-37) % Monocytes % (Manual) 15 H (4-12) % Anisocytosis Few Sodium 133 L (135-145) mmol/L Potassium 3.1 L (3.5-5.3) mmol/L Chloride 97 L (100-110) mmol/L Carbon Dioxide 28 (23-29) mmol/L BUN 23 (8-23) mg/dL Creatinine 1.2 (0.6-1.3) mg/dL Est Cr Clr Drug Dosing 43.94 mL/min Estimated GFR (MDRD) 57 L (>60) BUN/Creatinine Ratio 19.2 (9-20) Glucose 115 (80-116) mg/dL Calcium 7.9 L (8.6-10.2) mg/dL Result Diagrams: 05/29/17 06:35 05/29/17 06:35 *Q Meaningful Use (ADM) - VTE *Q VTE Criteria *Q: - Stroke *Q Stroke Criteria *Q: - AMI *Q AMI Criteria *Q: - Problem List (1) CHF (congestive heart failure) SNOMED Code(s): 77741139 ICD Code: I50.9 - HEART FAILURE, UNSPECIFIED Status: Acute Current Visit : Yes (2) Pleural effusion SNOMED Code(s): 28741721 ICD Code: J90 - PLEURAL EFFUSION, NOT ELSEWHERE CLASSIFIED Status: Acute Current Visit: Yes (3) Acute renal failure SNOMED Code(s): 27446987 ICD Code: N17.9 - ACUTE KIDNEY FAILURE, UNSPECIFIED Status: Acute Current Visit: Yes (4) Hyponatremia SNOMED Code(s): 39025360 ICD Code: E87.1 - HYPO-OSMOLALITY AND HYPONATREMIA Status: Acute Current Visit: No Problem List Initiated/Reviewed/Updated: Yes Orders Last 24hrs: Active Orders 24 hr Category Date Time Status ALPRAZolam [Xanax] Med 05/28/17 22:43 Active 0.125 mg PO BID PRN ALPRAZolam [Xanax] Med 05/29/17 08:52 Ordered 0.125 mg PO BID PRN Acetaminophen [Tylenol] Med 05/28/17 22:45 Active 650 mg PO Q4H PRN Acetaminophen [Tylenol] Med 05/29/17 08:52 Ordered 650 mg PO Q4H PRN Albuterol Sulfate [Proair Respiclick] Med 05/29/17 08:52 Ordered 2 inh IH Q4HR PRN Albuterol/Ipratropium [DuoNeb 3.0-0.5 MG/3 ML] Med 05/29/17 08:52 Ordered 3 ml NEB Q4H PRN Allopurinol [Zyloprim] Med 05/29/17 09:00 Ordered 100 mg PO DAILY Budesonide/Formoterol [Symbicort 160-4.5 MCG] Med 05/29/17 09:00 Ordered 2 inh IH BID Cholecalciferol (Vitamin D3) [Vitamin D3] Med 05/29/17 09:00 Ordered 2,000 units PO DAILY Fluticasone Propionate [Flonase Allergy Relief] Med 05/29/17 09:00 Ordered 2 spray NASBOTH DAILY Krill Oil [Krill Oil] Med 05/29/17 09:00 Ordered 500 mg PO DAILY Metoprolol Tartrate [Lopressor] Med 05/29/17 09:00 Ordered 50 mg PO BID Multivitamin-Min/Iron/FA/Vit K [Multi-Day Plus Minerals Med 05/29/17 09:00 Ordered Tablet] 1 each PO DAILY Mycophenolate Mofetil [Cellcept] Med 05/29/17 09:00 Ordered 500 mg PO BID Omeprazole [Omeprazole] Med 05/29/17 08:52 Ordered 20 mg PO DAILY PRN Simvastatin [Zocor] Med 05/29/17 21:00 Ordered 5 mg PO BEDTIME Terazosin [Hytrin] Med 05/29/17 21:00 Ordered 10 mg PO BEDTIME Tiotropium [Spiriva HandiHaler] Med 05/29/17 09:00 Ordered 1 puff INH DAILY Warfarin [Coumadin] Med 05/29/17 09:00 Ordered 2.5 mg PO DAILY Medication Orders Acetaminophen (Tylenol) 650 mg PO Q4H PRN PRN Reason: Other Last Admin: 05/28/17 23:02 Dose: 650 mg Acetaminophen (Tylenol) 650 mg PO Q4H PRN PRN Reason: Anxiety Albuterol/Ipratropium (Duoneb 3.0-0.5 Mg/3 Ml) 3 ml NEB QIDRT [facility]YLE Last Admin: 05/29/17 08:01 Dose: 3 ml Admin: 05/28/17 22:11 Dose: 3 ml Albuterol/Ipratropium (Duoneb 3.0-0.5 Mg/3 Ml) 3 ml NEB Q4H PRN PRN Reason: Wheezing Allopurinol (Zyloprim) 100 mg PO DAILY [facility] Alprazolam (Xanax) 0.125 mg PO BID PRN PRN Reason: Other Last Admin: 05/28/17 23:02 Dose: 0.125 mg Alprazolam (Xanax) 0.125 mg PO BID PRN PRN Reason: Anxiety Metoprolol Tartrate (Lopressor) 50 mg PO BID [facility] Morphine Sulfate (Morphine) 2 mg IVPUSH Q2H PRN PRN Reason: Pain (severe 7-10) Non-Formulary Medication (Albuterol Sulfate [Proair Respiclick]) 2 inh IH Q4HR PRN PRN Reason: Dyspnea Non-Formulary Medication (Budesonide/Formoterol [Symbicort 160-4.5 Mcg]) 2 inh IH BID [facility] Non-Formulary Medication (Cholecalciferol (Vitamin D3) [Vitamin D3]) 2,000 units PO DAILY [facility] Non-Formulary Medication (Fluticasone Propionate [Flonase Allergy Relief]) 2 spray NASBOTH DAILY [facility] Non-Formulary Medication (Krill Oil [Krill Oil]) 500 mg PO DAILY [facility] Non-Formulary Medication (Multivitamin-Min/Iron/Fa/Vit K [Multi-Day Plus Minerals Tablet]) 1 each PO DAILY [facility] Non-Formulary Medication (Mycophenolate Mofetil [Cellcept]) 500 mg PO BID [facility] Non-Formulary Medication (Omeprazole [Omeprazole]) 20 mg PO DAILY PRN PRN Reason: Heartburn Non-Formulary Medication (Terazosin [Hytrin]) 10 mg PO BEDTIME [facility] Simvastatin (Zocor) 5 mg PO BEDTIME [facility] Sodium Chloride (Saline Flush) 10 ml FLUSH ASDIRECTED PRN PRN Reason: Keep Vein Open Last Admin: 05/28/17 20:48 Dose: 10 ml Tiotropium [place] (Spiriva Handihaler) mcg INH DAILY [facility] Warfarin Sodium (Coumadin) 2.5 mg PO DAILY [facility] Assessment/Plan Comment:: 1. Admit to inpatient. 2. Discuss code. He did not want discuss it because he is tired at this time. 3. He was given Lasix 80 mg IV. This was last night. 4. Wait for radiology interpretation chest x-ray. 5. Give Lasix IV today. I'll wait till after noon time. This is to give the patient time to rest. 6. Patient is on Coumadin that should take care of VTE prophylaxis. Daily INRs with pharmacy checking his INR. 7. PT/OT. 8. Regular diet. 9. Ambulate when necessary. 10. Reconcile medications
[2017-05-29] MEDS ORDERED: Fluticasone Propionate Nasal Spray 16 GM Bottle NASBOTH SCH (09:30)
[2017-05-29] MEDS: Fluticasone Propionate Nasal Spray 16 GM Bottle NASBOTH SCH (10:37)
[2017-05-29] MEDS: Tiotropium Inhaler 18 MCG Inhalation Powder Cap Kit of 5 INH SCH (10:38)
[2017-05-29] MEDS: Formoterol/Mometasone 200-5 MCG 8.8 GM Inhaler IH SCH ×2 (10:40→21:41)
[2017-05-29] MEDS: Cholecalciferol (Vitamin D3) 1,000 Unit Tab PO SCH (10:42)
[2017-05-29] MEDS: Allopurinol 100 MG Tab PO SCH (10:42)
[2017-05-29] MEDS: Multivitamins, Therapeutic with Minerals Tab PO SCH (10:42)
[2017-05-29] MEDS: Metoprolol Tartrate 25 MG Tab PO SCH ×2 (11:28→20:48)
[2017-05-29] MEDS ORDERED: Furosemide 100 MG/10 ML SDV IVPUSH ONE (13:00)
[2017-05-29] MEDS: Albuterol/Ipratropium 3.0-0.5 MG/3 ML Neb Soln NEB PRN ×2 (13:21→17:04)
[2017-05-29] MEDS: MYCOPHENOLATE 250 MG PO SCH ×2 (15:40→20:48)
[2017-05-29] MEDS: Warfarin 2.5 MG Tab PO SCH (15:42)
--- NOTE | 2017-05-29 16:39 | CR ---
INDICATION: Short of breath. CHEST: A single AP upright view of the chest, 05/28/2017, was compared with and 04/11/2017, revealing the heart to be enlarged, the aorta tortuous and calcified. Pleuroparenchymal changes are noted at the lung bases, compatible with pneumonia and pleuritis, especially on the left. There appears to be infiltration in the right mid lung field, which may represent a patchy pneumonia also. Findings could also be on the basis of pulmonary edema, however , the upper lung field pulmonary vasculature does not appear grossly engorged to strongly suggest CHF. The appearance of the lungs may be on the basis of aspiration pneumonia. Findings should be correlated clinically. The lungs also appear to be hyperaerated, suggesting COPD. Some of the parenchymal and pleural changes present may be on the basis of pleuroparenchymal fibrosis, especially at the left lung base. There does appear to be interval clearing of an infiltrate seen in the left upper lung field on the previous examinations. IMPRESSION: 1. Bilateral pneumonia, likely on the basis of aspiration, but should be correlated clinically. 2. ASHD with cardiomegaly. 3. Probable COPD. MTDD
[2017-05-29] MEDS: Albuterol 8 GM Inhaler INH PRN (16:41)
[2017-05-29] MEDS ORDERED: Azithromycin 500 MG in Sodium Chloride 0.9% 250 ML IV ONE (18:28)
[2017-05-29] MEDS: Terazosin 5 MG Cap PO SCH (20:47)
[2017-05-29] MEDS: Simvastatin 10 MG Tab PO SCH (20:49)
[2017-05-29] MEDS: cefTRIAXone 1,000 MG in Sodium Chloride 0.9% 50 ML IV SCH (20:54)
[2017-05-29] MEDS: ALPRAZolam 0.25 MG Tab PO SCH (21:41)
[2017-05-29] MEDS: Acetaminophen 325 MG Tab PO PRN (21:41)
[2017-05-30] MEDS: Albuterol/Ipratropium 3.0-0.5 MG/3 ML Neb Soln NEB SCH ×4 (07:21→20:19)
[2017-05-30] MEDS: Allopurinol 100 MG Tab PO SCH (08:44)
[2017-05-30] MEDS: Cholecalciferol (Vitamin D3) 1,000 Unit Tab PO SCH (08:44)
[2017-05-30] MEDS: Metoprolol Tartrate 25 MG Tab PO SCH ×2 (08:44→20:19)
[2017-05-30] MEDS: Multivitamins, Therapeutic with Minerals Tab PO SCH (08:45)
[2017-05-30] MEDS: Tiotropium Inhaler 18 MCG Inhalation Powder Cap Kit of 5 INH SCH (08:45)
[2017-05-30] MEDS: Fluticasone Propionate Nasal Spray 16 GM Bottle NASBOTH SCH (08:46)
[2017-05-30] MEDS: Formoterol/Mometasone 200-5 MCG 8.8 GM Inhaler IH SCH ×2 (08:47→20:18)
[2017-05-30] MEDS: MYCOPHENOLATE 250 MG PO SCH ×2 (08:49→21:09)
[2017-05-30] MEDS: Levothyroxine 150 MCG Tab PO SCH (08:51)
[2017-05-30] MEDS ORDERED: Pantoprazole 40 MG Tab.CR PO PRN (09:00)
[2017-05-30] MEDS ORDERED: Furosemide 40 MG/4 ML VIAL IVPUSH ONE (09:38)
[2017-05-30] MEDS ORDERED: Metolazone 5 MG Tab PO ONE (09:38)
[2017-05-30] MEDS: Albuterol 8 GM Inhaler INH PRN (09:41)
--- NOTE | 2017-05-30 09:57 | PCM.PN ---
- General Info Date of Service: 05/30/17 Admission Dx/Problem (Free Text): Patient states that his breathing is somewhat improved. But his lower leg swelling is not improved. He denies fevers, chills, coughing. - Patient Data Vitals - Most Recent: Last Vital Signs Temp 97.7 F 05/30/17 07:49 Pulse 110 H 05/30/17 08:44 Resp 20 05/30/17 07:49 BP 133/74 05/30/17 08:44 Pulse Ox 93 L 05/30/17 07:49 Weight - Most Recent: 171 lb 8 oz I&O - Last 24 Hours: Intake & Output 05/29/17 05/30/17 05/30/17 22:59 06:59 14:59 Intake Total 50 Output Total 425 500 Balance -375 -500 Lab Results Last 24 Hours: Laboratory Results - last 24 hr 05/29/17 05/30/17 05/30/17 Range/Units 10:00 06:25 06:25 WBC 10.6 (4.5-12.0) X10-3/uL RBC 3.33 L (4.30-5.75) x10(6)uL Hgb 10.0 L (11.5-15.5) g/dL Hct 30.3 (30.0-51.3) % MCV 91.0 (80-96) fL MCH 30.0 (27.7-33.6) pg MCHC 32.9 (32.2-35.4) g/dL RDW 17.8 H (11.5-15.5) % Plt Count 479 H (125-369) X10(3)uL MPV 8.3 (7.4-10.4) fL Add Manual Diff Yes Neutrophils % (Manual) 70 (46-82) % Band Neutrophils % 1 (0-6) % Lymphocytes % (Manual) 7 L (13-37) % Monocytes % (Manual) 19 H (4-12) % Eosinophils % (Manual) 1 (0-5) % Basophils % (Manual) 2 (0-2) % Anisocytosis Few PT 22.5 H (8.7-11.1) INR 2.19 H (0.89-1.13) Sodium 132 L (135-145) mmol/L Potassium 3.1 L (3.5-5.3) mmol/L Chloride 93 L (100-110) mmol/L Carbon Dioxide 29 (23-29) mmol/L BUN 25 H (8-23) mg/dL Creatinine 1.3 (0.6-1.3) mg/dL Est Cr Clr Drug Dosing 40.56 mL/min Estimated GFR (MDRD) 52 L (>60) BUN/Creatinine Ratio 19.2 (9-20) Glucose 98 (80-116) mg/dL Calcium 7.8 L (8.6-10.2) mg/dL Total Bilirubin 0.7 (0.1-1.3) mg/dL AST 19 D (5-27) IU/L ALT 13 L D (14-26) IU/L Alkaline Phosphatase 80 (56-112) IU/L Total Protein 5.3 L (6.0-8.0) g/dL Albumin 2.6 L (3.2-4.6) g/dL Globulin 2.7 g/dL Albumin/Globulin Ratio 1.0 09//17 Range/Units 06:25 WBC (4.5-12.0) X10-3/uL RBC (4.30-5.75) x10(6)uL Hgb (11.5-15.5) g/dL Hct (30.0-51.3) % MCV (80-96) fL MCH (27.7-33.6) pg MCHC (32.2-35.4) g/dL RDW (11.5-15.5) % Plt Count (125-369) X10(3)uL MPV (7.4-10.4) fL Add Manual Diff Neutrophils % (Manual) (46-82) % Band Neutrophils % (0-6) % Lymphocytes % (Manual) (13-37) % Monocytes % (Manual) (4-12) % Eosinophils % (Manual) (0-5) % Basophils % (Manual) (0-2) % Anisocytosis PT 21.8 H (8.7-11.1) INR 2.13 H (0.89-1.13) Sodium (135-145) mmol/L Potassium (3.5-5.3) mmol/L Chloride (100-110) mmol/L Carbon Dioxide (23-29) mmol/L BUN (8-23) mg/dL Creatinine (0.6-1.3) mg/dL Est Cr Clr Drug Dosing mL/min Estimated GFR (MDRD) (>60) BUN/Creatinine Ratio (9-20) Glucose (80-116) mg/dL Calcium (8.6-10.2) mg/dL Total Bilirubin (0.1-1.3) mg/dL AST (5-27) IU/L ALT (14-26) IU/L Alkaline Phosphatase (56-112) IU/L Total Protein (6.0-8.0) g/dL Albumin (3.2-4.6) g/dL Globulin g/dL Albumin/Globulin Ratio Med Orders - Current: Current Medications Acetaminophen (Tylenol) 650 mg PO Q4H PRN PRN Reason: Other Last Admin: 05/29/17 21:41 Dose: 650 mg Albuterol (Ventolin Hfa) 0 gm INH Q4H PRN PRN Reason: Dyspnea Last Admin: 05/30/17 09:41 Dose: 2 puff Albuterol/Ipratropium (Duoneb 3.0-0.5 Mg/3 Ml) 3 ml NEB QIDRT [facility] Last Admin: 05/30/17 07:21 Dose: 3 ml Albuterol/Ipratropium (Duoneb 3.0-0.5 Mg/3 Ml) 3 ml NEB Q4H PRN PRN Reason: Wheezing Last Admin: 05/29/17 17:04 Dose: 3 ml Allopurinol (Zyloprim) 100 mg PO DAILY [facility] Last Admin: 05/30/17 08:44 Dose: 100 mg Alprazolam (Xanax) 0.125 mg PO BID PRN PRN Reason: Other Last Admin: 05/28/17 23:02 Dose: 0.125 mg Alprazolam (Xanax) 0.125 mg PO BEDTIME [facility] Last Admin: 05/29/17 21:41 Dose: 0.125 mg Cholecalciferol (Vitamin D3) 2,000 units PO DAILY [facility] Last Admin: 05/30/17 08:44 Dose: 2,000 units Fexofenadine HCl (Sangeeta) 180 mg PO DAILY [facility] Last Admin: 05/30/17 08:51 Dose: 180 mg Fluticasone Propionate (Flonase) 0 gm NASBOTH DAILY [facility] Last Admin: 05/30/17 08:46 Dose: 2 spray Furosemide (Lasix) 60 mg IVPUSH NOW ONE Stop: 05/30/17 09:39 Ceftriaxone Sodium 1,000 mg/ (Sodium Chloride) 50 mls @ 100 mls/hr IV Q24H [facility] Last Admin: 05/29/17 20:54 Dose: 100 mls/hr Azithromycin 250 mg/ Sodium (Chloride) 250 mls @ 250 mls/hr IV Q24H [facility] Levothyroxine Sodium (Levothyroxine) 150 mcg PO DAILY [facility] Last Admin: 05/30/17 08:51 Dose: 150 mcg Metolazone (Zaroxolyn) 5 mg PO ONETIME ONE Stop: 05/30/17 09:39 Metoprolol Tartrate (Lopressor) 12.5 mg PO BID [facility] Last Admin: 05/30/17 08:44 Dose: 12.5 mg Mometasone Furoate/Formoterol Fumar (Dulera 200-5 Mcg) 2 puff IH BID [facility] Last Admin: 05/30/17 08:47 Dose: 2 puff Morphine Sulfate (Morphine) 2 mg IVPUSH Q2H PRN PRN Reason: Pain (severe 7-10) Multivitamins/Minerals (Vitamins And Minerals) 1 tab PO DAILY [facility] Last Admin: 05/30/17 08:45 Dose: 1 tab Non-Formulary Medication (Krill Oil [Krill Oil]) 500 mg PO DAILY [facility] Mycophenolate ( Cellcept) 250mg * Ptom 500 mg PO BID [facility] Last Admin: 05/30/17 08:49 Dose: 500 mg Pantoprazole Sodium (Protonix) 40 mg PO DAILY PRN PRN Reason: HEARTBURN Simvastatin (Zocor) 5 mg PO BEDTIME [facility] Last Admin: 05/29/17 20:49 Dose: 5 mg Sodium Chloride (Saline Flush) 10 ml FLUSH ASDIRECTED PRN PRN Reason: Keep Vein Open Last Admin: 05/28/17 20:48 Dose: 10 ml Terazosin HCl (Hytrin) 10 mg PO BEDTIME [facility] Last Admin: 05/29/17 20:47 Dose: 10 mg Tiotropium [place] (Spiriva Handihaler) 18 mcg INH DAILY [facility] Last Admin: 05/30/17 08:45 Dose: 1 cap Warfarin Sodium (Coumadin) 2.5 mg PO DAILY@1600 [facility] Last Admin: 05/29/17 15:42 Dose: 2.5 mg Discontinued Medications Fluticasone Propionate (Flonase) 0 gm NASBOTH DAILY [facility] Last Admin: 05/29/17 15:26 Dose: Not Given Furosemide (Lasix) 80 mg IVPUSH NOW ONE Stop: 05/28/17 21:04 Last Admin: 05/28/17 21:53 Dose: 80 mg Furosemide (Lasix) 60 mg IVPUSH ONETIME ONE Stop: 05/29/17 13:01 Last Admin: 05/29/17 13:36 Dose: 60 mg Azithromycin 500 mg/ Sodium (Chloride) 250 mls @ 250 mls/hr IV ONETIME ONE Stop: 05/29/17 19:27 Last Admin: 05/29/17 19:05 Dose: 250 mls/hr Metolazone (Zaroxolyn) 2.5 mg PO ONETIME ONE Stop: 05/28/17 20:55 Last Admin: 05/28/17 21:52 Dose: 2.5 mg Metoprolol Tartrate (Lopressor) 50 mg PO BID [facility] Last Admin: 05/29/17 15:25 Dose: Not Given - Exam General: Alert, Oriented Neck: Supple Lungs: Normal Respiratory Effort, Crackles Cardiovascular: Irregular Rhythm, Tachycardia Extremities: Pedal Edema Psy/Mental Status: Alert, Normal Affect, Normal Mood - Problem List & Annotations (1) CHF (congestive heart failure) SNOMED Code(s): 38753198 Code(s): I50.9 - HEART FAILURE, UNSPECIFIED Status: Acute Current Visit: Yes (2) Acute renal failure SNOMED Code(s): 32595340 Code(s): N17.9 - ACUTE KIDNEY FAILURE, UNSPECIFIED Status: Acute Current Visit: Yes (3) Hyponatremia SNOMED Code(s): 96181834 Code(s): E87.1 - HYPO-OSMOLALITY AND HYPONATREMIA Status: Acute Current Visit: No (4) Pneumonia SNOMED Code(s): 260785374 Code(s): J18.9 - PNEUMONIA, UNSPECIFIED ORGANISM Status: Acute Current Visit: Yes (5) Hypokalemia SNOMED Code(s): 02893350 Code(s): E87.6 - HYPOKALEMIA Status: Acute Current Visit: Yes - Problem List Review Problem List Initiated/Reviewed/Updated: Yes - My Orders Last 24 Hours: My Active Orders 05/29/17 09:00 Allopurinol [Zyloprim] 100 mg PO DAILY Cholecalciferol (Vitamin D3) [Vitamin D3] 2,000 units PO DAILY Fluticasone Propionate [Flonase] 0 gm NASBOTH DAILY Krill Oil [Krill Oil] 500 mg PO DAILY Tiotropium [Spiriva HandiHaler] 18 mcg INH DAILY 05/29/17 09:25 Albuterol [Ventolin HFA] 0 gm INH Q4H PRN 05/29/17 10:15 Mometasone/Formoterol [Dulera 200-5 MCG] 2 puff IH BID Multivitamins/Minerals [Vitamins and Minerals] 1 tab PO DAILY 05/29/17 11:00 Metoprolol Tartrate [Lopressor] 12.5 mg PO BID 05/29/17 15:00 Mycophenolate Mofetil [Cellcept] 500 mg PO BID 05/29/17 16:00 Warfarin [Coumadin] 2.5 mg PO DAILY@1600 05/29/17 20:00 cefTRIAXone [Rocephin] 1,000 mg Sodium Chloride 0.9% [Normal Saline] 50 ml IV Q24H 05/29/17 21:00 ALPRAZolam [Xanax] 0.125 mg PO BEDTIME Simvastatin [Zocor] 5 mg PO BEDTIME Terazosin [Hytrin] 10 mg PO BEDTIME 05/30/17 09:00 Fexofenadine [Sangeeta] 180 mg PO DAILY Levothyroxine 150 mcg PO DAILY Pantoprazole [ProTONIX] 40 mg PO DAILY PRN 05/30/17 09:38 Furosemide [Lasix] 60 mg IVPUSH NOW ONE Metolazone [Zaroxolyn] 5 mg PO ONETIME ONE 05/30/17 09:39 Ambulate [RC] PER UNIT ROUTINE Consult to Occupational Therapy [OT Evaluation and Treatment] [CONS] Routine Consult to Physical Therapy [PT Evaluation and Treatment] [CONS] Routine 05/30/17 19:00 Azithromycin [Zithromax] 250 mg Sodium Chloride 0.9% [Normal Saline] 250 ml IV Q24H 05/31/17 06:00 BASIC METABOLIC PANEL,BMP [CHEM] AM 05/31/17 09:15 INR,PT,PROTHROMBIN TIME [COAG] DAILY 06/01/17 09:15 INR,PT,PROTHROMBIN TIME [COAG] DAILY 06/02/17 09:15 INR,PT,PROTHROMBIN TIME [COAG] DAILY 06/03/17 09:15 INR,PT,PROTHROMBIN TIME [COAG] DAILY - Plan Plan:: 1. Rocephin and Zithromax IV were started last night. 2. Give metolazone 5 mg by mouth today and then 30 minutes later 60 mg IV Lasix. 3. PT/OT. 4. Ambulate 4 times a day minimum.
[2017-05-30] MEDS: Warfarin 2.5 MG Tab PO SCH (16:22)
[2017-05-30] MEDS: Azithromycin 250 MG in Sodium Chloride 0.9% 250 ML IV SCH (18:28)
[2017-05-30] MEDS ORDERED: Sodium Chloride 0.9% 250 ML IV SCH (18:30)
[2017-05-30] MEDS: Terazosin 5 MG Cap PO SCH (20:19)
[2017-05-30] MEDS: Simvastatin 10 MG Tab PO SCH (20:20)
[2017-05-30] MEDS: ALPRAZolam 0.25 MG Tab PO SCH (20:20)
[2017-05-30] MEDS: Acetaminophen 325 MG Tab PO PRN (20:21)
[2017-05-30] MEDS: cefTRIAXone 1,000 MG in Sodium Chloride 0.9% 50 ML IV SCH (21:05)
[2017-05-31] MEDS: Albuterol/Ipratropium 3.0-0.5 MG/3 ML Neb Soln NEB PRN (04:23)
[2017-05-31] MEDS: Albuterol/Ipratropium 3.0-0.5 MG/3 ML Neb Soln NEB SCH ×4 (07:18→20:21)
--- NOTE | 2017-05-31 09:19 | PCM.PN ---
- General Info Date of Service: 05/31/17 Functional Status: Reports: Pain Controlled - Patient Data Vitals - Most Recent: Last Vital Signs Temp 98 F 05/31/17 04:00 Pulse 84 05/31/17 07:25 Resp 20 05/31/17 04:00 BP 125/76 05/31/17 01:40 Pulse Ox 91 L 05/31/17 07:25 Weight - Most Recent: 76.612 kg I&O - Last 24 Hours: Intake & Output 05/30/17 05/31/17 05/31/17 22:59 06:59 14:59 Intake Total 50 10 Output Total 600 Balance 50 -590 Lab Results Last 24 Hours: Laboratory Results - last 24 hr 05/31/17 05/31/17 Range/Units 06:15 06:15 PT 21.3 H (8.7-11.1) INR 2.08 H (0.89-1.13) Sodium 133 L (135-145) mmol/L Potassium 3.3 L (3.5-5.3) mmol/L Chloride 92 L (100-110) mmol/L Carbon Dioxide 28 (23-29) mmol/L BUN 30 H (8-23) mg/dL Creatinine 1.3 (0.6-1.3) mg/dL Est Cr Clr Drug Dosing 40.56 mL/min Estimated GFR (MDRD) 52 L (>60) BUN/Creatinine Ratio 23.1 H (9-20) Glucose 106 (80-116) mg/dL Calcium 8.1 L (8.6-10.2) mg/dL Med Orders - Current: Current Medications Acetaminophen (Tylenol) 650 mg PO Q4H PRN PRN Reason: Other Last Admin: 05/30/17 20:21 Dose: 650 mg Albuterol (Ventolin Hfa) 0 gm INH Q4H PRN PRN Reason: Dyspnea Last Admin: 05/30/17 09:41 Dose: 2 puff Albuterol/Ipratropium (Duoneb 3.0-0.5 Mg/3 Ml) 3 ml NEB QIDRT [facility] Last Admin: 05/31/17 07:18 Dose: 3 ml Albuterol/Ipratropium (Duoneb 3.0-0.5 Mg/3 Ml) 3 ml NEB Q4H PRN PRN Reason: Wheezing Last Admin: 05/31/17 04:23 Dose: 3 ml Allopurinol (Zyloprim) 100 mg PO DAILY [facility] Last Admin: 05/30/17 08:44 Dose: 100 mg Alprazolam (Xanax) 0.125 mg PO BID PRN PRN Reason: Other Last Admin: 05/28/17 23:02 Dose: 0.125 mg Alprazolam (Xanax) 0.125 mg PO BEDTIME [facility] Last Admin: 05/30/17 20:20 Dose: 0.125 mg Cholecalciferol (Vitamin D3) 2,000 units PO DAILY [facility] Last Admin: 05/30/17 08:44 Dose: 2,000 units Fexofenadine HCl (Sangeeta) 180 mg PO DAILY [facility] Last Admin: 05/30/17 08:51 Dose: 180 mg Fluticasone Propionate (Flonase) 0 gm NASBOTH DAILY [facility] Last Admin: 05/30/17 08:46 Dose: 2 spray Furosemide (Lasix) 40 mg IVPUSH BIDDIURETIC [facility] Ceftriaxone Sodium 1,000 mg/ (Sodium Chloride) 50 mls @ 100 mls/hr IV Q24H [facility] Last Admin: 05/30/17 21:05 Dose: 100 mls/hr Azithromycin 250 mg/ Sodium (Chloride) 250 mls @ 250 mls/hr IV Q24H [facility] Last Admin: 05/30/17 18:28 Dose: 250 mls/hr Sodium Chloride (Normal Saline) 250 mls @ 100 mls/hr IV ASDIRECTED [facility] Last Admin: 05/30/17 18:28 Dose: 100 mls/hr Levothyroxine Sodium (Levothyroxine) 150 mcg PO DAILY [facility] Last Admin: 05/30/17 08:51 Dose: 150 mcg Metolazone (Zaroxolyn) 2.5 mg PO DAILY [facility] Metoprolol Tartrate (Lopressor) 12.5 mg PO BID [facility] Last Admin: 05/30/17 20:19 Dose: 12.5 mg Mometasone Furoate/Formoterol Fumar (Dulera 200-5 Mcg) 2 puff IH BID [facility] Last Admin: 05/30/17 20:18 Dose: 2 puff Morphine Sulfate (Morphine) 2 mg IVPUSH Q2H PRN PRN Reason: Pain (severe 7-10) Multivitamins/Minerals (Vitamins And Minerals) 1 tab PO DAILY [facility] Last Admin: 05/30/17 08:45 Dose: 1 tab Non-Formulary Medication (Krill Oil [Krill Oil]) 500 mg PO DAILY [facility] Mycophenolate ( Cellcept) 250mg * Ptom 500 mg PO BID [facility] Last Admin: 05/30/17 21:09 Dose: 500 mg Pantoprazole Sodium (Protonix) 40 mg PO DAILY PRN PRN Reason: HEARTBURN Prednisone (Prednisone) 20 mg PO BID [facility] Simvastatin (Zocor) 5 mg PO BEDTIME [facility] Last Admin: 05/30/17 20:20 Dose: 5 mg Sodium Chloride (Saline Flush) 10 ml FLUSH ASDIRECTED PRN PRN Reason: Keep Vein Open Last Admin: 05/28/17 20:48 Dose: 10 ml Terazosin HCl (Hytrin) 10 mg PO BEDTIME [facility] Last Admin: 05/30/17 20:19 Dose: 10 mg Tiotropium [place] (Spiriva Handihaler) 18 mcg INH DAILY [facility] Last Admin: 05/30/17 08:45 Dose: 1 cap Warfarin Sodium (Coumadin) 2.5 mg PO DAILY@1600 [facility] Last Admin: 05/30/17 16:22 Dose: 2.5 mg Discontinued Medications Fluticasone Propionate (Flonase) 0 gm NASBOTH DAILY [facility] Last Admin: 05/29/17 15:26 Dose: Not Given Furosemide (Lasix) 80 mg IVPUSH NOW ONE Stop: 05/28/17 21:04 Last Admin: 05/28/17 21:53 Dose: 80 mg Furosemide (Lasix) 60 mg IVPUSH ONETIME ONE Stop: 05/29/17 13:01 Last Admin: 05/29/17 13:36 Dose: 60 mg Furosemide (Lasix) 60 mg IVPUSH NOW ONE Stop: 05/30/17 09:39 Last Admin: 05/30/17 10:32 Dose: 60 mg Azithromycin 500 mg/ Sodium (Chloride) 250 mls @ 250 mls/hr IV ONETIME ONE Stop: 05/29/17 19:27 Last Admin: 05/29/17 19:05 Dose: 250 mls/hr Metolazone (Zaroxolyn) 2.5 mg PO ONETIME ONE Stop: 05/28/17 20:55 Last Admin: 05/28/17 21:52 Dose: 2.5 mg Metolazone (Zaroxolyn) 5 mg PO ONETIME ONE Stop: 05/30/17 09:39 Last Admin: 05/30/17 10:33 Dose: 5 mg Metoprolol Tartrate (Lopressor) 50 mg PO BID [facility] Last Admin: 05/29/17 15:25 Dose: Not Given - Exam Quality Assessment: No: Supplemental Oxygen General: Alert, Oriented, Cooperative, Mild Distress HEENT: Pupils Equal, Pupils Reactive, EOMI, Mucous Membr. Moist/[place] Neck: Supple Lungs: Rales Cardiovascular: Irregular Rhythm, Tachycardia Back Exam: Normal Inspection, Full Range of Motion Extremities: Other (EDEMA+++). No: No Pedal Edema Skin: Warm, Dry, Intact Neurological: No New Focal Deficit Psy/Mental Status: Anxious - Problem List & Annotations (1) Lung malignancy SNOMED Code(s): 801498098 Code(s): C34.90 - MALIGNANT NEOPLASM OF UNSP PART OF UNSP BRONCHUS OR LUNG Status: Acute Current Visit: Yes Qualifiers: Laterality: unspecified laterality (2) CHF (congestive heart failure) SNOMED Code(s): 66672595 Code(s): I50.9 - HEART FAILURE, UNSPECIFIED Status: Acute Current Visit: Yes Qualifiers: Congestive heart failure type: unspecified congestive heart failure type (3) Pleural effusion SNOMED Code(s): 94458385 Code(s): J90 - PLEURAL EFFUSION, NOT ELSEWHERE CLASSIFIED Status: Acute Current Visit: Yes (4) CAP (community acquired pneumonia) SNOMED Code(s): 498242631 Code(s): J18.9 - PNEUMONIA, UNSPECIFIED ORGANISM Status: Acute Priority: High Current Visit: No Qualifiers: Laterality: unspecified laterality Qualified Code(s): J18.9 - Pneumonia, unspecified organism (5) COPD (chronic obstructive pulmonary disease) SNOMED Code(s): 82470250 Code(s): J44.9 - CHRONIC OBSTRUCTIVE PULMONARY DISEASE, UNSPECIFIED Status : Acute Priority: High Current Visit: No Qualifiers: COPD type: COPD with acute exacerbation Qualified Code(s): J44.1 - Chronic obstructive pulmonary disease with (acute) exacerbation (6) Palliative care status SNOMED Code(s): 822532735 Code(s): Z51.5 - ENCOUNTER FOR PALLIATIVE CARE Status: Acute Current Visit: No (7) Rapid atrial fibrillation SNOMED Code(s): 291809187 Code(s): I48.91 - UNSPECIFIED ATRIAL FIBRILLATION Status: Acute Priority : High Current Visit: No (8) HTN (hypertension) SNOMED Code(s): 78808297 Code(s): I10 - ESSENTIAL (PRIMARY) HYPERTENSION Status: Chronic Current Visit: No Qualifiers: Hypertension type: essential hypertension Qualified Code(s): I10 - Essential (primary) hypertension (9) JIMENA (generalized anxiety disorder) SNOMED Code(s): 61742550 Code(s): F41.1 - GENERALIZED ANXIETY DISORDER Status: Acute Current Visit : Yes - Problem List Review Problem List Initiated/Reviewed/Updated: Yes - My Orders Last 24 Hours: My Active Orders 05/31/17 09:15 Furosemide [Lasix] 40 mg IVPUSH BID Metolazone [Zaroxolyn] 2.5 mg PO DAILY predniSONE 20 mg PO BID 06/01/17 05:11 B-TYPE NATRIURETIC PEPTIDE,BNP [CHEM] AM COMPREHENSIVE METABOLIC PN,CMP [CHEM] AM 06/01/17 08:00 CXR [Chest 2V] [CR] Routine - Plan Plan:: I will resume Lasix and Zaroxolyn. I will continue with Rocephin and azithromycin for 1 more day, and also start prednisone 20 g twice a day for. Is unlikely to go home today but will continue to encourage ambulation John socks and compression stockings and elevation of the legs to help the edema. Keep a strict input and output and daily weight.
[2017-05-31] MEDS: Metoprolol Tartrate 25 MG Tab PO SCH ×2 (09:29→20:28)
[2017-05-31] MEDS: Tiotropium Inhaler 18 MCG Inhalation Powder Cap Kit of 5 INH SCH (09:29)
[2017-05-31] MEDS: Cholecalciferol (Vitamin D3) 1,000 Unit Tab PO SCH (09:29)
[2017-05-31] MEDS: Multivitamins, Therapeutic with Minerals Tab PO SCH (09:30)
[2017-05-31] MEDS: Fluticasone Propionate Nasal Spray 16 GM Bottle NASBOTH SCH (09:30)
[2017-05-31] MEDS: MYCOPHENOLATE 250 MG PO SCH ×2 (09:30→20:29)
[2017-05-31] MEDS: Levothyroxine 150 MCG Tab PO SCH (09:30)
[2017-05-31] MEDS: Formoterol/Mometasone 200-5 MCG 8.8 GM Inhaler IH SCH ×2 (09:30→20:20)
[2017-05-31] MEDS: Allopurinol 100 MG Tab PO SCH (09:30)
[2017-05-31] MEDS: predniSONE 20 MG Tab PO SCH ×2 (10:30→17:01)
[2017-05-31] MEDS: Metolazone 2.5 MG Tab PO SCH (10:30)
[2017-05-31] MEDS: Furosemide 40 MG/4 ML VIAL IVPUSH SCH ×2 (10:30→16:48)
[2017-05-31] MEDS: Sodium Chloride 0.9% 10 ML Syringe FLUSH PRN (16:47)
[2017-05-31] MEDS: Warfarin 2.5 MG Tab PO SCH (17:01)
[2017-05-31] MEDS: Azithromycin 250 MG in Sodium Chloride 0.9% 250 ML IV SCH (19:25)
[2017-05-31] MEDS: cefTRIAXone 1,000 MG in Sodium Chloride 0.9% 50 ML IV SCH (20:20)
[2017-05-31] MEDS: Terazosin 5 MG Cap PO SCH (20:21)
[2017-05-31] MEDS: Simvastatin 10 MG Tab PO SCH (20:29)
[2017-05-31] MEDS: ALPRAZolam 0.25 MG Tab PO SCH (20:35)
[2017-05-31] MEDS: Acetaminophen 325 MG Tab PO PRN (20:37)
[2017-06-01] MEDS: Metolazone 2.5 MG Tab PO SCH (05:40)
[2017-06-01] MEDS: Albuterol/Ipratropium 3.0-0.5 MG/3 ML Neb Soln NEB SCH ×2 (07:10→10:39)
[2017-06-01] MEDS: Metoprolol Tartrate 25 MG Tab PO SCH (08:03)
[2017-06-01] MEDS: Fluticasone Propionate Nasal Spray 16 GM Bottle NASBOTH SCH (08:04)
[2017-06-01] MEDS: Furosemide 40 MG/4 ML VIAL IVPUSH SCH (08:04)
[2017-06-01] MEDS: predniSONE 20 MG Tab PO SCH (08:05)
[2017-06-01] MEDS: Formoterol/Mometasone 200-5 MCG 8.8 GM Inhaler IH SCH (08:06)
[2017-06-01] MEDS: Levothyroxine 150 MCG Tab PO SCH (08:06)
[2017-06-01] MEDS: Tiotropium Inhaler 18 MCG Inhalation Powder Cap Kit of 5 INH SCH (08:07)
[2017-06-01] MEDS: MYCOPHENOLATE 250 MG PO SCH (08:07)
[2017-06-01 08:08] VITALS: BP 118/75
[2017-06-01] MEDS: Multivitamins, Therapeutic with Minerals Tab PO SCH (08:08)
[2017-06-01] MEDS: Allopurinol 100 MG Tab PO SCH (08:08)
[2017-06-01] MEDS: Cholecalciferol (Vitamin D3) 1,000 Unit Tab PO SCH (08:08)
--- NOTE | 2017-06-01 08:57 | PCM.PN ---
- General Info Date of Service: 06/01/17 Subjective Update: Patient feels ready to go home today. Still complains of edema of the legs, some shortness of breath and cough but otherwise feels stronger and able to take oral medications. Furthermore he has appointments next week with cardiology and pulmonology. He denies any fever chills overnight. He also complained is of no depression that he does feel some anxiety and decreased appetite he feels that this is improving. Functional Status: Reports: Pain Controlled, Tolerating Diet, Ambulating - Patient Data Vitals - Most Recent: Last Vital Signs Temp 97.5 F 05/31/17 21:54 Pulse 107 H 06/01/17 08:03 Resp 20 05/31/17 21:54 BP 118/75 06/01/17 08:03 Pulse Ox 93 L 05/31/17 21:54 Weight - Most Recent: 75.795 kg I&O - Last 24 Hours: Intake & Output 05/31/17 06/01/17 06/01/17 22:59 06:59 14:59 Intake Total 500 0 Output Total 125 300 Balance 375 -300 Lab Results Last 24 Hours: Laboratory Results - last 24 hr 06/01/17 06/01/17 06/01/17 Range/Units 07:05 07:05 07:05 PT 21.8 H (8.7-11.1) INR 2.13 H (0.89-1.13) Sodium 136 (135-145) mmol/L Potassium 3.8 (3.5-5.3) mmol/L Chloride 94 L (100-110) mmol/L Carbon Dioxide 31 H (23-29) mmol/L BUN 35 H (8-23) mg/dL Creatinine 1.3 (0.6-1.3) mg/dL Est Cr Clr Drug Dosing 40.56 mL/min Estimated GFR (MDRD) 52 L (>60) BUN/Creatinine Ratio 26.9 H (9-20) Glucose 135 H (80-116) mg/dL Calcium 8.2 L (8.6-10.2) mg/dL Total Bilirubin 0.6 (0.1-1.3) mg/dL AST 20 (5-27) IU/L ALT 15 D (14-26) IU/L Alkaline Phosphatase 73 (56-112) IU/L B-Natriuretic Peptide 929 H (0-100) pg/mL Total Protein 5.3 L (6.0-8.0) g/dL Albumin 2.6 L (3.2-4.6) g/dL Globulin 2.7 g/dL Albumin/Globulin Ratio 1.0 Med Orders - Current: Current Medications Acetaminophen (Tylenol) 650 mg PO Q4H PRN PRN Reason: Other Last Admin: 05/31/17 20:37 Dose: 650 mg Albuterol (Ventolin Hfa) 0 gm INH Q4H PRN PRN Reason: Dyspnea Last Admin: 05/30/17 09:41 Dose: 2 puff Albuterol/Ipratropium (Duoneb 3.0-0.5 Mg/3 Ml) 3 ml NEB QIDRT [facility] Last Admin: 06/01/17 07:10 Dose: 3 ml Albuterol/Ipratropium (Duoneb 3.0-0.5 Mg/3 Ml) 3 ml NEB Q4H PRN PRN Reason: Wheezing Last Admin: 05/31/17 04:23 Dose: 3 ml Allopurinol (Zyloprim) 100 mg PO DAILY [facility] Last Admin: 06/01/17 08:08 Dose: 100 mg Alprazolam (Xanax) 0.125 mg PO BID PRN PRN Reason: Other Last Admin: 05/28/17 23:02 Dose: 0.125 mg Alprazolam (Xanax) 0.125 mg PO BEDTIME [facility] Last Admin: 05/31/17 20:35 Dose: 0.125 mg Cholecalciferol (Vitamin D3) 2,000 units PO DAILY [facility] Last Admin: 06/01/17 08:08 Dose: 2,000 units Fexofenadine HCl (Sangeeta) 180 mg PO DAILY [facility] Last Admin: 06/01/17 08:05 Dose: 180 mg Fluticasone Propionate (Flonase) 0 gm NASBOTH DAILY [facility] Last Admin: 06/01/17 08:04 Dose: 2 spray Furosemide (Lasix) 40 mg IVPUSH BIDDIURETIC [facility] Last Admin: 06/01/17 08:04 Dose: 40 mg Ceftriaxone Sodium 1,000 mg/ (Sodium Chloride) 50 mls @ 100 mls/hr IV Q24H [facility] Last Admin: 05/31/17 20:20 Dose: 100 mls/hr Azithromycin 250 mg/ Sodium (Chloride) 250 mls @ 250 mls/hr IV Q24H [facility] Stop: 06/02/17 19:59 Last Admin: 05/31/17 19:25 Dose: 250 mls/hr Sodium Chloride (Normal Saline) 250 mls @ 100 mls/hr IV ASDIRECTED [facility] Last Admin: 05/30/17 18:28 Dose: 100 mls/hr Levothyroxine Sodium (Levothyroxine) 150 mcg PO DAILY [facility] Last Admin: 06/01/17 08:06 Dose: 150 mcg Metolazone (Zaroxolyn) 2.5 mg PO DAILY@0600 [facility] Last Admin: 06/01/17 05:40 Dose: 2.5 mg Metoprolol Tartrate (Lopressor) 12.5 mg PO BID [facility] Last Admin: 06/01/17 08:03 Dose: 12.5 mg Mometasone Furoate/Formoterol Fumar (Dulera 200-5 Mcg) 2 puff IH BID [facility] Last Admin: 06/01/17 08:06 Dose: 2 puff Morphine Sulfate (Morphine) 2 mg IVPUSH Q2H PRN PRN Reason: Pain (severe 7-10) Multivitamins/Minerals (Vitamins And Minerals) 1 tab PO DAILY [facility] Last Admin: 06/01/17 08:08 Dose: 1 tab Non-Formulary Medication (Krill Oil [Krill Oil]) 500 mg PO DAILY [facility] Mycophenolate ( Cellcept) 250mg * Ptom 500 mg PO BID [facility] Last Admin: 06/01/17 08:07 Dose: 500 mg Pantoprazole Sodium (Protonix) 40 mg PO DAILY PRN PRN Reason: HEARTBURN Prednisone (Prednisone) 20 mg PO BIDMEALS [facility] Last Admin: 06/01/17 08:05 Dose: 20 mg Simvastatin (Zocor) 5 mg PO BEDTIME [facility] Last Admin: 05/31/17 20:29 Dose: 5 mg Sodium Chloride (Saline Flush) 10 ml FLUSH ASDIRECTED PRN PRN Reason: Keep Vein Open Last Admin: 05/31/17 16:47 Dose: 10 ml Terazosin HCl (Hytrin) 10 mg PO BEDTIME [facility] Last Admin: 05/31/17 20:21 Dose: 10 mg Tiotropium [place] (Spiriva Handihaler) 18 mcg INH DAILY [facility] Last Admin: 06/01/17 08:07 Dose: 1 cap Warfarin Sodium (Coumadin) 2.5 mg PO DAILY@1600 [facility] Last Admin: 05/31/17 17:01 Dose: 2.5 mg Discontinued Medications Fluticasone Propionate (Flonase) 0 gm NASBOTH DAILY [facility] Last Admin: 05/29/17 15:26 Dose: Not Given Furosemide (Lasix) 80 mg IVPUSH NOW ONE Stop: 05/28/17 21:04 Last Admin: 05/28/17 21:53 Dose: 80 mg Furosemide (Lasix) 60 mg IVPUSH ONETIME ONE Stop: 05/29/17 13:01 Last Admin: 05/29/17 13:36 Dose: 60 mg Furosemide (Lasix) 60 mg IVPUSH NOW ONE Stop: 05/30/17 09:39 Last Admin: 05/30/17 10:32 Dose: 60 mg Azithromycin 500 mg/ Sodium (Chloride) 250 mls @ 250 mls/hr IV ONETIME ONE Stop: 05/29/17 19:27 Last Admin: 05/29/17 19:05 Dose: 250 mls/hr Metolazone (Zaroxolyn) 2.5 mg PO ONETIME ONE Stop: 05/28/17 20:55 Last Admin: 05/28/17 21:52 Dose: 2.5 mg Metolazone (Zaroxolyn) 5 mg PO ONETIME ONE Stop: 05/30/17 09:39 Last Admin: 05/30/17 10:33 Dose: 5 mg Metoprolol Tartrate (Lopressor) 50 mg PO BID [facility] Last Admin: 05/29/17 15:25 Dose: Not Given - Problem List & Annotations (1) Lung malignancy SNOMED Code(s): 946238189 Code(s): C34.90 - MALIGNANT NEOPLASM OF UNSP PART OF UNSP BRONCHUS OR LUNG Status: Acute Current Visit: Yes Qualifiers: Laterality: unspecified laterality (2) CHF (congestive heart failure) SNOMED Code(s): 02248684 Code(s): I50.9 - HEART FAILURE, UNSPECIFIED Status: Acute Current Visit: Yes Qualifiers: Congestive heart failure type: unspecified congestive heart failure type (3) Pleural effusion SNOMED Code(s): 53406781 Code(s): J90 - PLEURAL EFFUSION, NOT ELSEWHERE CLASSIFIED Status: Acute Current Visit: Yes (4) CAP (community acquired pneumonia) SNOMED Code(s): 681683578 Code(s): J18.9 - PNEUMONIA, UNSPECIFIED ORGANISM Status: Acute Priority: High Current Visit: No Qualifiers: Laterality: unspecified laterality Qualified Code(s): J18.9 - Pneumonia, unspecified organism (5) COPD (chronic obstructive pulmonary disease) SNOMED Code(s): 66622559 Code(s): J44.9 - CHRONIC OBSTRUCTIVE PULMONARY DISEASE, UNSPECIFIED Status : Acute Priority: High Current Visit: No Qualifiers: COPD type: COPD with acute exacerbation Qualified Code(s): J44.1 - Chronic obstructive pulmonary disease with (acute) exacerbation (6) Palliative care status SNOMED Code(s): 261288448 Code(s): Z51.5 - ENCOUNTER FOR PALLIATIVE CARE Status: Acute Current Visit: No (7) Rapid atrial fibrillation SNOMED Code(s): 997726358 Code(s): I48.91 - UNSPECIFIED ATRIAL FIBRILLATION Status: Acute Priority : High Current Visit: No (8) HTN (hypertension) SNOMED Code(s): 24504581 Code(s): I10 - ESSENTIAL (PRIMARY) HYPERTENSION Status: Chronic Current Visit: No Qualifiers: Hypertension type: essential hypertension Qualified Code(s): I10 - Essential (primary) hypertension (9) JIMENA (generalized anxiety disorder) SNOMED Code(s): 22596474 Code(s): F41.1 - GENERALIZED ANXIETY DISORDER Status: Acute Current Visit : Yes - Problem List Review Problem List Initiated/Reviewed/Updated: Yes - My Orders Last 24 Hours: My Active Orders 05/31/17 09:15 Furosemide [Lasix] 40 mg IVPUSH BIDDIURETIC Metolazone [Zaroxolyn] 2.5 mg PO DAILY@0600 predniSONE 20 mg PO BIDMEALS 06/01/17 08:00 CXR [Chest 2V] [CR] Routine - Plan Plan:: I will discharge him home today on oral prednisone, oral antibiotics, and oral Lasix and metolazone.
--- NOTE | 2017-06-01 15:32 | DISCH ---
DISCHARGE DATE: 06/01/2017 REASON FOR ADMISSION: COPD exacerbation. DISCHARGE DIAGNOSES: 1. Chronic obstructive pulmonary disease exacerbation. 2. Pneumonia. 3. Atrial fibrillation. 4. Lung cancer. 5. Congestive heart failure. 6. Pleural effusion. 7. Hypertension. 8. Anxiety disorder. CONSULTATIONS: Physical and Occupational Therapy. They recommended swing bed; however, the patient desired to go back home with his . BRIEF HISTORY: This is an 86-year-old male, who has a history of lung cancer, COPD, CHF, and even admission as late as April for pneumonia. He came in short of breath and with a lot of edema of the legs. His BNP was over 1300. He was started on Lasix and oral metolazone. The next day, the x-ray was read as pneumonia, although he did not have a white cell count or fever. He was started on Rocephin and azithromycin. The patient improved with bedrest, and felt ready to go home with his on the . I discharged him on oral Omnicef, to finish 5-day total course of Zithromax, and prednisone 10 mg b.i.d. for another 5 days, and to continue with home doses of Lasix and metolazone. FOLLOWUP: He has a followup next week with Pulmonology and Cardiology. Advised to return to the ED with worsening symptoms. Please note that I spent more than 35 minutes in the discharge of this patient. /[id number] GRACIA/KENROY
== END 2017-06-01 12:56 | disposition home or self-care (01) | DRG 190 ==
LOC: FB.ED 20:01 → FB.MS 20:54
PROVIDERS: ADMIT Family Medicine; ATTEND Family Medicine
DX: J44.0 Chronic obstructive pulmonary disease with (acute) lower respiratory infection (principal); J18.9 Pneumonia, unspecified organism; E87.1 Hypo-osmolality and hyponatremia; N17.9 Acute kidney failure, unspecified; J44.1 Chronic obstructive pulmonary disease with (acute) exacerbation; I11.0 Hypertensive heart disease with heart failure; I50.9 Heart failure, unspecified; Z85.118 Personal history of other malignant neoplasm of bronchus and lung; I25.10 Atherosclerotic heart disease of native coronary artery without angina pectoris; I48.91 Unspecified atrial fibrillation; Z79.01 Long term (current) use of anticoagulants; Z87.891 Personal history of nicotine dependence; Z51.5 Encounter for palliative care; F41.1 Generalized anxiety disorder; E78.00 Pure hypercholesterolemia, unspecified; Z85.46 Personal history of malignant neoplasm of prostate; M19.90 Unspecified osteoarthritis, unspecified site; M54.9 Dorsalgia, unspecified; G89.29 Other chronic pain; M10.9 Gout, unspecified; G70.00 Myasthenia gravis without (acute) exacerbation; Z88.1 Allergy status to other antibiotic agents
CPT/HCPCS: 36415; 71010; 80053; 83880; 84484; 85025; 93005; J7050; 80048; 85610; 94640; 94640-76; 99284; 99285; A9270; A9270-GY; J0456; J0696; J1940; J7620

== ENCOUNTER 2018-03-20 18:15 | Emergency (ER) | payer MEDICARE, OTHER ==
--- NOTE | 2018-03-20 18:41 | EDM.PDOC ---
ED HPI GENERAL MEDICAL PROBLEM - General Stated Complaint: POST SURGICAL BLEEDING Time Seen by Provider: 03/20/18 18:15 Source of Information: Reports: Patient, Family History Limitations: Reports: Physical Impairment - History of Present Illness INITIAL COMMENTS - FREE TEXT/NARRATIVE: 87 y.o.w.f came to the ed with his SO due to a wound at his post ming. A Skin Biopsy was performed a few days ago to R/O CA. 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 The wound was mildly bleeding this PM which made the concerned. Pt was taking Coumadine till 3 days ago for a -fib. On arrival, there was no active bleed. No N/V/D No F/C or any other acute medical issues. BP 129/79 Pulse 98% on RA RR 18 Temp 36.8 Pulse 78 Onset Date: 03/20/18 Onset Time: 16:00 Duration: Hour(s):, Intermittent, Improving Location: Reports: Head Quality: Reports: Ache Severity: Mild Improves with: Reports: Other (pressure) Worsens with: Reports: Movement Context: Reports: Other (S/P Skin Biopsy Suture removal planed tomorrow. ) Associated Symptoms: Reports: No Other Symptoms Treatments [employer]: Reports: Other (see below) (pt stopped takinh Coumadine 3 days ago.) - Related Data Allergies Allergy/AdvReac Type Severity Reaction Status Date / Time amoxicillin [Amoxicillin] Allergy Cannot Verified 03/20/18 18:35 Remember Home Meds: Home Meds Budesonide/Formoterol [Symbicort 160-4.5 MCG] 2 inh IH BID 10/24/13 [History] Omeprazole 20 mg PO DAILY 10/24/13 [History] Simvastatin [Zocor] 5 mg PO BEDTIME 10/24/13 [History] Terazosin [Hytrin] 10 mg PO BEDTIME 10/24/13 [History] Albuterol Sulfate [Proair Respiclick] 2 inh IH Q4HR PRN 02/02/15 [History] Cholecalciferol (Vitamin D3) [Vitamin D3] 2,000 units PO DAILY 02/02/15 [History ] Krill Oil 500 mg PO DAILY 02/02/15 [History] Mycophenolate Mofetil [Cellcept] 500 mg PO BID 12/08/16 [History] Acetaminophen [Tylenol] 650 mg PO Q4H PRN #15 tablet 12/12/16 [Rx] Albuterol/Ipratropium [DuoNeb 3.0-0.5 MG/3 ML] 3 ml NEB Q4H PRN #60 neb [Rx] Allopurinol [Zyloprim] 100 mg PO DAILY 04/12/17 [History] Fluticasone Propionate [Flonase Allergy Relief] 2 spray NASBOTH DAILY 04/12/17 [ History] Multivitamin-Min/Iron/FA/Vit K [Multi-Day Plus Minerals Tablet] 1 each PO DAILY 04/12/17 [History] Tiotropium [Spiriva Handihaler] 1 puff INH DAILY 04/12/17 [History] Metoprolol Tartrate [Lopressor] 50 mg PO BID #60 tablet 04/16/17 [Rx] Warfarin [Coumadin] 2.5 mg PO DAILY #4 tablet 04/18/17 [Rx] ALPRAZolam [Xanax] 0.125 - 0.25 mg PO BEDTIME 05/29/17 [History] Fexofenadine [Sangeeta] 180 mg PO DAILY 05/29/17 [History] Levothyroxine 150 mcg PO DAILY 05/29/17 [History] Azithromycin [IJD: Azithromycin] 250 mg PO DAILY #2 tab 06/01/17 [Rx] Cefdinir [Omnicef] 300 mg PO BID #10 cap 06/01/17 [Rx] Furosemide [Lasix] 40 mg PO BID #60 tablet 06/01/17 [Rx] Metolazone [Zaroxolyn] 2.5 mg PO DAILY@0600 #30 tablet 06/01/17 [Rx] Prednisone [IJD: predniSONE] 20 mg PO BID #10 tab 06/01/17 [Rx] Past Medical History HEENT History: Reports: Cataract Cardiovascular History: Reports: Afib, High Cholesterol, Hypertension Other Cardiovascular History: FROST in 1992. Respiratory History: Reports: COPD, SOB, Other (See Below) Other Respiratory History: lung cancer Gastrointestinal History: Reports: Bowel Obstruction Genitourinary History: Reports: Prostate Disorder Other Genitourinary History: prostate cancer Musculoskeletal History: Reports: Arthritis, Back Pain, Chronic, Gout, Osteoarthritis Other Neuro History: history of myathenia gravis Endocrine/Metabolic History: Reports: Other (See Below) Other Endocrine/Metabolic History: on Levothyroxin for 30 years Oncologic (Cancer) History: Reports: Lung, Prostate - Infectious Disease History Infectious Disease History: Reports: Measles, Mumps - Past Surgical History Head Surgeries/Procedures: Reports: None Cardiovascular Surgical History: Reports: Aneurysm, Other (See Below) Respiratory Surgical History: Reports: Lung Biopsies, Other (See Below) Other Respiratory Surgeries/Procedures: right lung cancer GI Surgical History: Reports: Cholecystectomy, Colonoscopy, Hernia, Inguinal Male Surgical History: Reports: None Musculoskeletal Surgical History: Reports: None Oncologic Surgical History: Reports: None Social & Family History - Family History Family Medical History: Noncontributory Respiratory: Reports: COPD Musculoskeletal: Reports: Arthritis Oncologic: Reports: Leukemia, Liver - Caffeine Use Caffeine Use: Reports: Coffee Other Caffeine Use: about 2 cups per day ED ROS GENERAL - Review of Systems Review Of Systems: Unable To Obtain ED EXAM, SKIN/RASH Exam: See Below Exam Limited By: Physical Impairment General Appearance: Alert, Mild Distress, Cachetic Eye Exam: Bilateral Eye: Normal Inspection Ears: Normal External Exam Nose: Normal Inspection Throat/Mouth: Normal Voice, No Airway Compromise Head: Atraumatic, Normocephalic Neck: Normal Inspection, Supple, Non-Tender Respiratory/Chest: No Respiratory Distress, Lungs Clear, Normal Breath Sounds, Chest Non-Tender Cardiovascular: Normal Peripheral Pulses, No Edema Peripheral Pulses: 1+: Brachial (R) GI/Abdominal: Normal Bowel Sounds, Soft (Male) Exam: Deferred Rectal (Males) Exam: Deferred Back Exam: Normal Inspection, Full Range of Motion Extremities: Other (chronic leg edema) Neurological: Alert, Oriented, CN II-XII Intact, Normal Cognition, Abnormal Gait Psychiatric: Normal Affect, Normal Mood Skin: Other (S/P biopst psterior skull, S/P wounf repair, no active blood) Lymphatic: No Adenopathy Course - Vital Signs Text/Narrative:: 87 y.o.w.f came to the ed with his SO due to a wound at his post ming. A Skin Biopsy was performed a few days ago to R/O CA. 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 The wound was mildly bleeding this PM which made the concerned. Pt was taking Coumadine till 3 days ago for a -fib. On arrival, there was no active bleed. No N/V/D No F/C or any other acute medical issues. BP 129/79 Pulse 98% on RA RR 18 Temp 36.8 Pulse 78 PE: Thin cachectic w m with a not active bleeding post skull. Impression: Dressing Change, wound check Tx: Dressing Change/EDGAR wrap Reexam: Improved Plan: D/C with instructions Last Recorded V/S: Last Vital Signs Temp 36.7 C 03/20/18 18:55 Pulse 83 03/20/18 18:55 Resp 18 03/20/18 18:55 BP 124/59 L 03/20/18 18:55 Pulse Ox 97 03/20/18 18:55 Departure - Departure Time of Disposition: 18:41 Disposition: Home, Self-Care 01 Condition: Good Clinical Impression: Dressing change - Discharge Information Instructions: Wound Care, Adult, How to Change Your Dressing, [id number] Referrals: Harshil Oakley MD [Primary Care Provider] - Forms: ED Department Discharge Additional Instructions: Please apply Pressure to wound, please f/u with your Doctor as scheduled tomorrow, please come back if your symptoms get worse acutely.
[2018-03-20 19:32] VITALS: BP 124/59
== END 2018-03-20 18:55 | disposition home or self-care (01) ==
LOC: FB.ED 18:15
DX: L76.22 Postprocedural hemorrhage of skin and subcutaneous tissue following other procedure (principal); I10 Essential (primary) hypertension; J44.9 Chronic obstructive pulmonary disease, unspecified; Z88.1 Allergy status to other antibiotic agents; Z79.899 Other long term (current) drug therapy; Z79.01 Long term (current) use of anticoagulants
CPT/HCPCS: 99282